=== PATIENT | female | born 1945 | race American Indian/Alaskan Native ===

== ENCOUNTER → 2024-12-17 | Outpatient (CLI) | payer MEDICARE, MEDICAID, SELFPAY ==
[2024-12-17 17:20] LABS: Amphetamine/Methamp Scrn,U Negative (Negative); Barbiturate Screen,Urine Negative (Negative); Benzodiazepines Screen,Urine Negative (Negative); Benzoylecgonine Screen, Ur Negative (Negative); Fentanyl Screen,Urine Negative (Negative); Opiate Screen,Urine Positive (Negative); THC Screen,Urine Negative (Negative)
== END | disposition home or self-care (01) ==
LOC: COPL 15:18 → SLDO 15:26
PROVIDERS: PCP Family Medicine; Referring Provider Family Medicine; Visit Provider Family Medicine
DX: Z71.51 Drug abuse counseling and surveillance of drug abuser (principal)
CPT/HCPCS: 80307

== ENCOUNTER 2025-02-23 14:03 | Inpatient (IN) | payer MEDICARE, MEDICAID, SELFPAY ==
[2025-02-23] VITALS (7 sets, daily range): BP systolic 107–143; BP diastolic 63–73; PULSE 90–108; RESP 14–24; TEMP 36.5–37.2; O2SAT 90–95; BMI 23.9; BMI 23.6
--- NOTE | 2025-02-23 14:27 | XR_ITS ---
Examination: AP chest single view Technique: AP portable semiupright chest single view Exam date and time: February 23, 2025 1523 hrs. Comparison May 03, 2023 Indications: Shortness of breath chest pain today. Findings: Severe pneumonia consolidation right upper lobe Pneumonia also both bases and right middle lobe Normal heart size Impression: Bilateral pneumonia as above, follow-up strongly recommended to document complete clearing
--- NOTE | 2025-02-23 14:27 | EKG_ITS ---
[facility] Test Date: 2025-02-23 Pat Name: RODRIGO ACKERMAN Department: Room: - Gender: Female Certified Orthotist Practice Manager: : [id number] Requested By: Luis Manuel Mancilla Order Number: [id number] Reading MD: Luis Manuel Mancilla Measurements Intervals [place] Rate: 94 P: 68 OK: 142 QRS: 63 QRSD: 76 T: 57 QT: 338 QTc: 423 Interpretive Statements SINUS RHYTHM WITH OCCASIONAL SUPRAVENTRICULAR PREMATURE COMPLEXES Compared to ECG 02/21/2022 17:07:17 No significant changes /store/S0/[id number].pdf
--- NOTE | 2025-02-23 14:30 | EDNOTE_ITS ---
ED General RME/HPI General Chief complaint: Flu Like Symptoms Stated complaint: COUGH Time Seen by Provider: 02/23/25 14:26 Arrival date/time: 02/23/25 14:03 CC: Cough with shortness of breath HPI ongoing for the past 3 weeks but worse in the last 2 weeks where the patient states he has been coughing day at night. All of the family members in the household were sick , with similar symptoms. Patient denies chest pain. No OTC medicines taken. Dr Nick is her PCP. Related Data Home Medications ?Medication ?Instructions ?Recorded ?Confirmed lorazepam 0.5 mg tablet 0.5 mg PO TID PRN anxiety #0 tabs 06/21/16 02/23/25 omeprazole 20 mg capsule,delayed 20 mg PO QDAY ##0 02/23/25 release amlodipine 10 mg tablet (Norvasc) 10 mg PO QDAY #0 tab s 09/14/16 02/23/25 benazepril 40 mg tablet (Lotensin) 40 mg PO QDAY #0 ta bs 09/14/16 05/03/23 tizanidine 4 mg tablet (Zanaflex) 4 mg PO BID Muscle s pasms #0 tabs 09/14/16 02/23/25 hydrocodone 7.5 mg-acetaminophen 1 tab PO [id number] PRN Pain 01/10/19 05/03/23 325 mg tablet (Beauty) alendronate 70 mg tablet 70 mg PO QWEEK 04/30/2004/07 duloxetine 20 mg capsule,delayed 20 mg PO DAILY 02/23/25 release Previous Rx's ?Medication ?Instructions ?Recorded guaifenesin 200 mg tablet 200 mg PO QID PRN congestion #20 02/21/22 tabs promethazine 6.25 mg-codeine 10 5 ml PO QHSPRN PRN cou gh #118 mL 02/21/22 mg/5 mL syrup hydrocodone 5 mg-acetaminophen 325 1 tab PO Q8H PRN pa in #20 tabs 09/03/23 mg tablet dexamethasone 6 mg tablet 6 mg PO QDAY #7 tabs 3 ondansetron 4 mg disintegrating 4 mg PO Q8H PRN nausea and 11/11/23 tablet vomiting #14 tabs Allergies Allergy/AdvReac Type Severity Reaction Status Date / Time diphenhydramine HCl AdvReac Mild RESTLESSNES Verified 08/25/23 11:25 S Review of Systems Review of Systems Narrative Review of Systems: GEN: No fever, no chills, no weight loss EYES: No discharge, no visual changes, no pain HEENT: No ear pain, no congestion, no sore throat PULM: No shortness of breath, + cough, no congestion CV: No chest pain, no dyspnea on exertion, no palpitations GI: No nausea, no vomiting, no diarrhea, no pain, no constipation : No frequency, no urgency, no dysuria MUSC/SKEL: No joint pain, no back pain SKIN: No rash PSYCH: No hallucinations, no depression HEME/LYMPH: No easy bleeding or bruising tendencies NEURO: No weakness, no headache Past Medical History Past Medical History NEUROLOGIC: Negative Neurological Disorders, Seizures or Head Trauma CARDIAC: Positive Edema and Hypertension; Negative Cardiac Disorders, Congestive Heart Failure, Cellulitis or Varicose Veins RESPIRATORY: Positive Asthma; Negative Chronic Obstructive Pulmonary Disease (COPD), Tuberculosis or Sleep Apnea GASTROINTESTINAL: Positive Gastrointestinal Disorders and Gastroesophageal Reflux Disease; Negative Hepatitis GENITOURINARY: Negative Genitourinary Disorders or Renal Disease REPRODUCTIVE: Positive Previous Pregnancies MUSCULOSKELETAL: Positive Musculoskeletal Disorders, Arthritis, Osteoporosis, Fractures and Degenerative Joint Disease ENT: Positive Glaucoma; Negative Head Trauma ENDOCRINE: Negative Endocrine Disorders, Diabetes Mellitus Type 1 or Diabetes Mellitus Type 2 HEMATOLOGIC: Negative Blood Disorders or Sickle Cell Disease PSYCHO/SOCIAL: Positive Depression and Anxiety OTHER HISTORY: Positive Falls, Chicken Pox, Measles, Mumps, Cancer and Cervical Cancer; Negative Hospitalization, Autoimmune Disease, Shingles, Blood Transfusions, Blood Transfusion Reaction, Anesthesia Reactions, Chemotherapy, Radiation Therapy or MRSA Family History FAMILY HISTORY: Positive Family Gastrointestinal Problems and Family Surgery; Negative Family Psychiatric Problems, Family Respiratory Disorders, Family C ardiac Disorders, Family Cancer or Family Anesthesia Reaction Surgical History SURGICAL: Positive Eye Surgery, Joint Replacement, Open Reduction Internal Fixation and Hysterectomy; Negative Pacemaker Social History SMOKING STATUS: Never smoker ED Exam Narrative Physical exam: [General: Not in any acute distress Head normocephalic HEENT: Within acceptable limits Neck is supple nontender Chest equal chest rise nontender to palpation Respiratory: Expiratory crackles, no audible expiratory wheezing. No tachypnea nasal flaring or pursed lip breathing. CV: Rate rhythm is regular no murmurs rubs or clicks Abdomen is soft nontender no masses positive bowel sounds all 4 quadrants Back: No CVA tenderness no spinous process tenderness from cervical spine thoracic and lumbar spine Skin: Intact no petechiae rash induration ulceration or crepitus Extremities: Moving all extremity against resistance cap refill less than 2 seconds neurosensory intact Neuro: Awake alert oriented x3 Glascow coma 15 no focal deficits] Course Quality Measures none Orders Category Date Time Status Bedside Influenza A&B Antigen Test NOW Care 02/23/25 14:30 Completed EKG (ED ONLY) *Do not use* NOW Care 02/23/25 14:27 Completed EKG (ED Only) Stat Exams 02/23/25 14:27 Draft XR chest 1V Stat Exams 02/23/25 14:27 Completed B-Type Natriuretic Peptide Stat Lab 02/23/25 16:00 Completed CBC Stat Lab 02/23/25 16:00 Completed Cocci Serology IgM with reflex to IgG [Cocci Serology, Lab 02/23/25 16:00 Received Unk History] Stat Comprehensive Metabolic Panel Stat Lab 02/23/25 16:00 Completed Drug Screen,Urine Stat Lab 02/23/25 14:27 Ordered LDH (Lactate Dehydrogenase) Stat Lab 02/23/25 16:00 Completed Magnesium Stat Lab 02/23/25 16:00 Completed Partial Thromboplastin Time Stat Lab 02/23/25 16:00 Completed Prothrombin Time with INR Stat Lab 02/23/25 16:00 Completed Troponin I Stat Lab 02/23/25 16:00 Completed Urinalysis Stat Lab 02/23/25 14:27 Ordered Albuterol/Ipratr Rt Helen [Duoneb Rt Helen] Med 02/23/25 14:30 Discontinued 3 ml INH X1 ONE Potassium Chloride [K-Dur] Med 02/23/25 16:47 Discontinued 40 meq PO X1 ONE cefTRIAXone/D5w 1gm IV premix [Rocephin/D5w 1gm IV Med 02/23/25 15:43 Discontinued premix] 1 gm in 50 ml IV X1 Vital Signs Vital signs: Vital Signs Temperature 97.7 F 02/23/25 14:28 Pulse Rate 90 02/23/25 14:28 Respiratory Rate 18 02/23/25 14:28 Blood Pressure 107/64 02/23/25 14:28 Pulse Oximetry (%) 95 02/23/25 14:28 Oxygen Delivery Method Nasal Cannula 02/23/25 14:28 Oxygen Flow Rate 6 02/23/25 14:28 Discharge Plan Plan Patient Disposition: Admit Acute Care w/in Hospital Problem List Clinical Impression: Pneumonia, Leukocytosis, Cough 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 Medication Administration(s) Medication Administration History Acetaminophen (Acetaminophen 325 Mg Tablet) 650 mg PO Q6H PRN PRN Reason: Fever >101.5 Stop: 03/25/25 17:23 Hydrocodone Bitart/Acetaminophen (Hydrocodone/Apap 5/325 Tablet) 1 tab PO Q8HR PRN PRN Reason: Pain 7-10 Stop: 02/28/25 19:29 Albuterol/Ipratropium (Albuterol/Ipratropium (Duoneb) Rt Helen 3 Ml Nebu) 3 ml INH Q6HRRT [facility] Stop: 03/25/25 18:59 Last Admin: 02/23/25 18:42 Dose: 3 ml Documented By: KATLYN Azithromycin (Azithromycin 250 Mg Tablet) 500 mg PO QDAY [facility] Stop: 03/02/25 17:44 Last Admin: 02/23/25 22:01 Dose: 500 mg Documented By: Docusate Sodium (Docusate Sod 100 Mg Capsule) 100 mg PO QDAY PRN; Protocol PRN Reason: CONSTIPATION Stop: 03/25/25 17:23 Enoxaparin Sodium (Enoxaparin Sod Inj 30 Mg/0.3 Ml Syringe) 30 mg SC QDAY [facility] Stop: 03/10/25 08:59 Lactated Ringer's (Lactated Ringers) 1,000 mls @ 75 mls/hr IV .[id number] [facility] Stop: 02/24/25 06:49 Last Admin: 02/23/25 20:33 Dose: 75 mls/hr Documented By: Ceftriaxone Sodium/Dextrose (Rocephin/D5w 1gm Iv Premix) 1 gm in 50 mls @ 100 mls/hr IV QDAY [facility] Stop: 03/03/25 06:59 Ondansetron HCl (Ondansetron Inj 2 Mg/Ml Inj 2 Ml) 4 mg IV Q6H PRN; Protocol PRN Reason: NAUSEA OR VOMITING Stop: 03/25/25 17:23 Pantoprazole Sodium (Pantoprazole 40 Mg Tablet) 40 mg PO QDAY [facility] Stop: 03/26/25 08:59 Promethazine HCl/Dextromethorphan (Promethazine/Dm Syrup 5 Ml Dose) 10 ml PO Q6HR [facility]; Protocol Stop: 03/25/25 17:59 Last Admin: 02/23/25 19:15 Dose: 10 ml Documented By: EF Tizanidine HCl (Tizanidine Hcl 2 Mg Tablet) 4 mg PO HS [facility] Stop: 03/25/25 20:59 Last Admin: 02/23/25 22:03 Dose: 4 mg Documented By: ME Discontinued Medications Albuterol/Ipratropium (Albuterol/Ipratropium (Duoneb) Rt Helen 3 Ml Nebu) 3 ml INH X1 ONE Stop: 02/23/25 14:31 Last Admin: 02/23/25 14:49 Dose: 3 ml Documented By: JONH Benzonatate (Benzonatate 100 Mg Capsule) 200 mg PO X1 ONE; Protocol Stop: 02/23/25 18:04 Last Admin: 02/23/25 22:00 Dose: 200 mg Documented By: ME Ceftriaxone Sodium/Dextrose (Rocephin/D5w 1gm Iv Premix) 1 gm in 50 mls @ 100 mls/hr IV X1 ONE Stop: 02/23/25 16:12 Last Admin: 02/23/25 19:16 Dose: 100 mls/hr Documented By: EF Magnesium Sulfate (Magnesium Sulfate Ivpb) 4 gm in 50 mls @ 12.5 mls/hr IV X1 ONE Stop: 02/23/25 21:36 Last Admin: 02/23/25 20:45 Dose: 12.5 mls/hr Documented By: ME Potassium Chloride (Potassium Chloride 20 Meq Tabcr) 40 meq PO X1 ONE Stop: 02/23/25 16:48 Last Admin: 02/23/25 19:15 Dose: 40 meq Documented By: EF Sodium Chloride (Sodium Chloride Rt 10% 15 Ml Nebu) 5 ml INH X1 ONE Stop: 02/23/25 19:21
[2025-02-23] MEDS: ALBUTEROL/IPRATROPIUM (Duoneb) RT SOL 3 ML NEBU INH ×2 (14:49→18:42)
[2025-02-23 16:21] LABS: Basophils % (Auto) 0 % (0-2.5); Eosinophils # (Auto) 0.1 Thou/mm3 (0.0-0.5); Eosinophils % (Auto) 0 % (0-10); Hematocrit 34.5 % (36.0-46.0); Hemoglobin 11.8 g/dL (12.0-16.0); Immature Granulocytes % (Auto) 1 % (0-0); Lymphocytes # (Auto) 0.6 Thou/mm3 (1.0-4.8); Lymphocytes % (Auto) 3 % (10-50); Mean Corpuscular HGB Conc 34.2 g/dl (31.0-37.0); Mean Corpuscular Hemoglobin 29.3 pg (25.0-35.0); Mean Corpuscular Volume 86 fL (80-100); Monocytes # (Auto) 0.3 Thou/mm3 (0.0-0.8); Monocytes % (Auto) 2 % (0-12); Neutrophils # (Auto) 17.9 Thou/mm3 (1.8-7.7); Neutrophils % (Auto) 94 % (37-80); Nucleated Red Blood Cell # 0.14 Thou/mm3 (0.00-0.00); Nucleated Red Blood Cell % 1 /100 WBC (0); Platelet Count 290 Thou/mm3 (140-440); RDW Standard Deviation 51.4 fL (36.4-46.3); Red Blood Count 4.03 Miln/mm3 (4.00-5.20)
[2025-02-23 16:37] LABS: INR 1.2 (0.9-1.3); Partial Thromboplastin Time 44.7 Seconds (22.0-36.0)
[2025-02-23 16:41] LABS: B-Type Natriuretic Peptide 298 pg/mL (0-100)
[2025-02-23 16:45] LABS: Alanine Aminotransferase 15 U/L (10-49); Albumin, Serum 3.7 gm/dL (3.4-4.8); Albumin/Globulin Ratio 1.4 (1.2-2.2); Alkaline Phosphatase 142 U/L (46-116); Anion Gap 12 (7-16); Aspartate Amino Transferase 24 U/L (0-34); BUN/Creatinine Ratio 24 Ratio (12-20); Blood Urea Nitrogen 39 mg/dL (9-23); Calcium (Corrected) 8.2 mg/dL (8.5-10.1); Carbon Dioxide 21.2 mMol/L (20.0-31.0); Chloride 100 mMol/L (98-107); Creatinine (Component) 1.6 mg/dL (0.6-1.3); Estimated Creatinine Clearance 23.3 mL/min (>60); Globulin 2.7 gm/dL (2.3-3.5); Glucose 92 mg/dL (74-106); LDH (Lactate Dehydrogenase) 229 U/L (120-246); Magnesium 1.4 mg/dL (1.6-2.6); Osmolality,Calculated 275 (275-295); Potassium 3.1 mMol/L (3.4-5.1); Sodium 133 mMol/L (136-145); Total Protein 6.4 gm/dL (5.7-8.2); Troponin I < 0.020 ng/mL (0.0-0.045); eGFR 33 See Note
--- NOTE | 2025-02-23 17:40 | ESHP_ITS ---
<Statement entered by Bigg Reyes MD - 02/24/25 14:27> Patient coming in to the ED with shortness of breath. Patient found to have pneumonia started on broad-spectrum IV antibiotics and pending cultures to narrow antibiotics. Patient also noted to have electrolyte abnormalities, will replete and continue to monitor. Case discussed with team. Bigg Reyes MD PGY3 Documentation for date of: 02/23/25 HPI History of Present Illness Chief complaint: cough History of present illness: 79-year-old female with significant past medical history of hypertension, chronic back pain on opioids presented to the hospital with chief complaints of cough since 2 weeks. Patient was apparently normal 2 weeks ago, since then patient developed cough which is gradually progressive and worsening, associated with expectoration, yellowish in color and denies any hemoptysis. Also reported that she is having chest pain mainly noticed when she is coughing and also noticed that she is getting short of breath after coughing continuously. Denies fever, palpitations, lower extremity edema, abdominal distention, nausea, vomitings. Denies any recent sick contacts and denies going to primary care provider. Stated that she took [id number] cough medications without much relief. As the cough is gradually worsening, patient got anxious and came to the ED for further evaluation. ED course: - Vitals at the time of admission are stable except for saturations 95% with 6 L oxygen through nasal cannula - Labs are significant for WBC 19, hemoglobin 11.8, sodium 133, potassium 3.1, BUN 39, creatinine 1.6, magnesium 1.4, calcium 8.2, BNP 298 - Chest x-ray showed consolidation in right upper lobe - EKG showed sinus rhythm with occasional ectopics - Patient is admitted for acute hypoxic respiratory failure secondary to right lung pneumonia Past medical history: Hypertension, chronic back pain Past surgical history: Bilateral hip replacement Social history: Denies smoking, alcohol, other illicit drug abuse. Retired, lives at home with grandson and granddaughter in law Allergies: NKDA Review of Systems Review of Systems Systems Reviewed: All systems reviewed, normal except as documented Exam Vital Signs Temp Pulse Resp BP Pulse Ox O2 Del Method O2 Flow Rate 98.9 F 96 18 143/70 H 93 L Nasal Cannula 2 02/23/25 17:32 02/23/25 17:32 02/23/25 17:32 02/23/25 17:32 02/23/25 17:32 02/23/25 17:32 02/23/25 17:32 Narrative Exam General: Awake. On 4 L oxygen through nasal cannula HEENT: Normocephalic, atraumatic, mucous membranes moist. Heart: Tachycardic and regular rhythm, no murmurs. Lungs: Bilateral bronchial breath sounds noted Abdomen: Soft, nondistended, nontender, positive bowel sounds. ?No guarding or rebound tenderness. Neurologic: Alert and oriented x3, no gross neurological deficit, and patient able to move all 4 extremities. Extremities: No edema. Skin: No rash or ecchymoses. Results: Labs 02/24/25 05:06 02/24/25 05:06 Labs: Short CBC 02/23/25 Range/Units 16:00 WBC 19.0 H (3.6-11.0) Thou/mm3 Hgb 11.8 L (12.0-16.0) g/dL Hct 34.5 L (36.0-46.0) % Plt Count 290 (140-440) Thou/mm3 BMP 02/23/25 16:00 Sodium 133 L Potassium 3.1 L Chloride 100 Carbon Dioxide 21.2 BUN 39 H Creatinine 1.6 H Glucose 92 Calcium 8.0 L Cardiac Enzymes 02/23/25 Range/Units 16:00 Troponin I < 0.020 (0.0-0.045) ng/mL Liver Function 02/23/25 Range/Units 16:00 Total Bilirubin 1.0 (0.3-1.2) mg/dL AST 24 (0-34) U/L ALT 15 (10-49) U/L Alkaline Phosphatase 142 H (46-116) U/L Albumin 3.7 (3.4-4.8) gm/dL Quality Measures Quality Measures VTE prophylaxis Advance care planning discussed with:: patient Medications Home Medications and Allergies Home Medications ?Medication ?Instructions ?Recorded ?Confirmed ?Type lorazepam 0.5 mg tablet 0.5 mg PO TID PRN anxiety #0 tabs 06/21/16 02/23/25 History omeprazole 20 mg capsule,delayed 20 mg PO QDAY ##0 02/23/25 History release amlodipine 10 mg tablet (Norvasc) 10 mg PO QDAY #0 tab s 09/14/16 02/23/25 History benazepril 40 mg tablet (Lotensin) 40 mg PO QDAY #0 ta bs 09/14/16 05/03/23 History tizanidine 4 mg tablet (Zanaflex) 4 mg PO BID Muscle s pasms #0 tabs 09/14/16 02/23/25 History hydrocodone 7.5 mg-acetaminophen 1 tab PO [id number] PRN Pain 01/10/19 05/03/23 History 325 mg tablet (Maddock) alendronate 70 mg tablet 70 mg PO QWEEK 04/30/2004/07 History duloxetine 20 mg capsule,delayed 20 mg PO DAILY 02/23/25 History release Allergies Allergy/AdvReac Type Severity Reaction Status Date / Time diphenhydramine HCl AdvReac Mild RESTLESSNES Verified 08/25/23 11:25 S Visit Medications Acetaminophen (Acetaminophen 325 Mg Tablet) 650 mg PO Q6H PRN PRN Reason: Fever >101.5 Stop: 03/25/25 17:23 Albuterol/Ipratropium (Albuterol/Ipratropium (Duoneb) Rt Helen 3 Ml Nebu) 3 ml INH Q6HRRT [facility] Stop: 03/25/25 18:59 Azithromycin (Azithromycin 250 Mg Tablet) 500 mg PO QDAY [facility] Stop: 03/02/25 17:44 Docusate Sodium (Docusate Sod 100 Mg Capsule) 100 mg PO QDAY PRN; Protocol PRN Reason: CONSTIPATION Stop: 03/25/25 17:23 Enoxaparin Sodium (Enoxaparin Sod Inj 40 Mg/0.4 Ml Syringe) 30 mg SC QDAY [facility] Stop: 03/10/25 08:59 Lactated Ringer's (Lactated Ringers) 1,000 mls @ 75 mls/hr IV .[id number] [facility] Stop: 02/24/25 06:49 Ceftriaxone Sodium/Dextrose (Rocephin/D5w 1gm Iv Premix) 1 gm in 50 mls @ 100 mls/hr IV QDAY [facility] Stop: 03/03/25 06:59 Magnesium Sulfate (Magnesium Sulfate Ivpb) 4 gm in 50 mls @ 12.5 mls/hr IV X1 ONE Stop: 02/23/25 21:36 Ondansetron HCl (Ondansetron Inj 2 Mg/Ml Inj 2 Ml) 4 mg IV Q6H PRN; Protocol PRN Reason: NAUSEA OR VOMITING Stop: 03/25/25 17:23 Pantoprazole Sodium (Pantoprazole 40 Mg Tablet) 40 mg PO QDAY [facility] Stop: 03/26/25 08:59 Promethazine HCl/Dextromethorphan (Promethazine/Dm Syrup 5 Ml Dose) 10 ml PO Q6HR [facility]; Protocol Stop: 03/25/25 17:59 Discontinued Medications Albuterol/Ipratropium (Albuterol/Ipratropium (Duoneb) Rt Helen 3 Ml Nebu) 3 ml INH X1 ONE Stop: 02/23/25 14:31 Last Admin: 02/23/25 14:49 Dose: 3 ml Ceftriaxone Sodium/Dextrose (Rocephin/D5w 1gm Iv Premix) 1 gm in 50 mls @ 100 mls/hr IV X1 ONE Stop: 02/23/25 16:12 Potassium Chloride (Potassium Chloride 20 Meq Tabcr) 40 meq PO X1 ONE Stop: 02/23/25 16:48 Assessment & Plan Plan A 79-year-old female with significant past medical history of hypertension, chronic back pain on opioids presented to the hospital with chief complaints of cough and admitted in the hospital for acute hypoxic respiratory failure secondary to right lung pneumonia # Acute hypoxic respiratory failure # 2/2 Right lung pneumonia # Likely community-acquired pneumonia, to rule out cocci # Leukocytosis - Patient presented to the hospital with chief complaints of cough with expectoration associated with shortness of breath since 2 weeks - Denies fever, nausea, vomitings - Vitals at the time of admission are significant for SpO2 95% with 6 L oxygen - Labs are significant for WBC 19, Hb 11.8 - Chest x-ray showed patchy infiltrate in right upper lobe - Tested negative for COVID, influenza A and B - Blood and urine cultures are ordered - Sputum culture and Gram stain was ordered - Cocci IgM and IgG were ordered Plan - Started on ceftriaxone and azithromycin [02/23/2025- - Oxygen as needed - Chest physiotherapy and incentive spirometry - Promethazine and dextromethorphan every 6 hourly - DuoNebs every 6 hourly # VERONICA versus CKD IIIb - Baseline creatinine is 0.7 in 02/2024 - At the time of admission, BUN is 39, creatinine is 1.6 Plan - Started on IV fluids, LR at 75 mL/h - Urine electrolytes and creatinine is ordered - Avoid nephrotoxic medications and renally dose medications - Will continue to monitor renal functions # Hypokalemia # Hyponatremia # Hypomagnesemia - Low sodium could be due to the ongoing lung pathology - Hypokalemia and hypomagnesemia could be due to poor oral intake in the setting of acute illness - At the time of admission, potassium is 3.1, magnesium is 1.4 Plan - 40 mill equivalents of oral potassium and 4 g of IV magnesium is given -Started on LR at 75 mL/h - Will continue to monitor electrolytes and replete as needed # Chronic anemia - Hemoglobin is 11.1 on 02/2024 - Hemoglobin at the time of admission is 11.8 - Likely nutritional - Recommended to follow-up in outpatient basis for further evaluation # Hypocalcemia - Corrected calcium at the time of admission is 8.2 - Vitamin D levels were ordered - Will follow-up with the results # History of hypertension - Patient is using amlodipine 10 Mg p.o. daily and benazepril 40 Mg p.o. daily at home - Blood pressures are within normal limits since the hospital admission, will withhold antihypertensives for now - Will continue to monitor blood pressures and add medications as needed # History of osteoporosis # History of chronic back pain - Patient is using alendronate and Maddock as needed for the back pain - Resumed Maddock 5 every 8 hourly as needed - Will resume tizanidine - Home med rec is ordered Hospital Maintenance: Dispo: Med/tele DVT ppx: Lovenox GI ppx: Protonix Diet: Regular IV lines: Peripheral Code status: Full code Patient plan of care was discussed with the attending physician, Dr. Prince and senior resident Dr. Eric Washington, PGY1 Attending Provider Attestation/Addendum I, Moriah Prince, DO, attest that I was physically present for the horne portions of the service and evaluated the patient with the resident and I reviewed and discussed the case with the resident and agree with the resident's findings and plans of care as documented above Patient is a 79-year-old female past medical history of chronic back pain, opioid dependence, hypertension and GERD who presented to the ED with worsening generalized weakness and shortness of breath that began about 2 to 3 weeks ago. Patient states that she was with her grandchildren who were recently sick, but have all recovered. She states that she woke up this morning with worsening productive cough and dyspnea on exertion, prompting her to come to the ED. Patient was found to have leukocytosis to 19, acute kidney injury with a creatinine of 1.6 with baseline of 0.6, BNP of 298 and procalcitonin of 14.77. UA is negative for acute UTI. She appears tachypneic on exam with scattered wheezing in bilateral lung concepcion. Chest x-ray was done in the ED showing evidence of bilateral pneumonia with right upper lobe consolidation. She denies any recent antibiotic use. Will start patient on azithromycin and Rocephin for coverage of community-acquired pneumonia. Will start patient on gentle IV fluids due to acute kidney injury. She is currently on 4 L nasal cannula, titrate O2 as tolerated. Will start on breathing treatments as well. Patient denies any tobacco use or smoking history. Will obtain cultures to rule out any other sources of infection. Will admit patient to med/telemetry for further workup and medical management of acute hypoxic respiratory failure secondary to community-acquired pneumonia.
[2025-02-23] MEDS: POTASSIUM CHLORIDE 20 mEq TABCR 40 MEQ PO (19:15)
[2025-02-23] MEDS: PROMETHAZINE/DM SYRUP 5 ML DOSE 10 ML PO ×2 (19:15→23:17)
[2025-02-23] MEDS: cefTRIAXone/D5w 1gm IV premix 1 GM/50 ML BAG IV (19:16)
[2025-02-23] MEDS: RINGERS LACTATED 1000 ML 1,000 ML 75 ML IV (20:33)
[2025-02-23] MEDS: Magnesium Sulfate 4 GM Ivpb 4 GM/50 ML BAG IV (20:45)
[2025-02-23 20:51] LABS: Lactate (Lactic Acid) 4.5 mMol/L (0.4-2.0)
[2025-02-23 21:19] LABS: Vitamin D 25 Hydroxy Total 4.4 ng/mL (7.3-40.2)
[2025-02-23 21:24] LABS: Procalcitonin 14.77 ng/ml (0.0-0.49)
[2025-02-23] MEDS: BENZONATATE 100 MG CAPSULE 200 MG PO (22:00)
[2025-02-23] MEDS: AZITHROMYCIN 250 MG TABLET 500 MG PO (22:01)
[2025-02-23] MEDS: tiZANidine HCL 2 MG TABLET 4 MG PO (22:03)
[2025-02-23 23:42] LABS: Reflex Lactate? Y
[2025-02-24] VITALS (21 sets, daily range): BP systolic 64–113; BP diastolic 37–67; PULSE 76–97; RESP 10–25; TEMP 36.1–37.1; O2SAT 89–98
--- NOTE | 2025-02-24 00:10 | PC.NURSE ---
DIRECTOR OF ARCHITECTURE called due to hypotension, Sepsis alert also initiated (SEE LAB). labs draw, 1L bolus and midodrine given(SEE MAR).
[2025-02-24 00:32] LABS: Base Excess -4 (-3-3); HCO3 20 mEq/L (20-26); Inspired O2, VO2 Liters 9 L/min; Inspired Oxygen, FIO2 21 %; O2 Saturation 97 % (91-98); PCO2 35 mmHg (32.0-48.0); PO2 87 mmHg (83-108); pH, Arterial 7.38 (7.35-7.45)
[2025-02-24 00:33] LABS: Allen Test Performed/OK; Puncture Site Right Radial
[2025-02-24 00:34] LABS: Lactic Acid, 3 HR 3.5 mMol/L (0.4-2.0)
[2025-02-24 00:36] LABS: Basophils % (Auto) 0 % (0-2.5); Eosinophils % (Auto) 0 % (0-10); Hematocrit 29.7 % (36.0-46.0); Hemoglobin 10.4 g/dL (12.0-16.0); Immature Granulocytes % (Auto) 3 % (0-0); Immature Granulocytes Auto 0.56 Thou/mm3 (0.00-0.00); Lymphocytes # (Auto) 0.6 Thou/mm3 (1.0-4.8); Lymphocytes % (Auto) 3 % (10-50); Mean Corpuscular Hemoglobin 29.5 pg (25.0-35.0); Mean Corpuscular Volume 84 fL (80-100); Monocytes # (Auto) 0.2 Thou/mm3 (0.0-0.8); Monocytes % (Auto) 1 % (0-12); Neutrophils # (Auto) 17.2 Thou/mm3 (1.8-7.7); Neutrophils % (Auto) 92 % (37-80); Nucleated Red Blood Cell # 0.13 Thou/mm3 (0.00-0.00); Nucleated Red Blood Cell % 1 /100 WBC (0); Platelet Count 235 Thou/mm3 (140-440); RDW Standard Deviation 50.5 fL (36.4-46.3); Red Blood Count 3.52 Miln/mm3 (4.00-5.20); White Blood Count 18.7 Thou/mm3 (3.6-11.0)
[2025-02-24 01:03] LABS: Alanine Aminotransferase 15 U/L (10-49); Albumin, Serum 2.9 gm/dL (3.4-4.8); Albumin/Globulin Ratio 1.3 (1.2-2.2); Alkaline Phosphatase 128 U/L (46-116); Anion Gap 10 (7-16); Aspartate Amino Transferase 30 U/L (0-34); BUN/Creatinine Ratio 28 Ratio (12-20); Bilirubin,Total 0.7 mg/dL (0.3-1.2); Blood Urea Nitrogen 33 mg/dL (9-23); Calcium 7.4 mg/dL (8.3-10.6); Calcium (Corrected) 8.3 mg/dL (8.5-10.1); Carbon Dioxide 19.3 mMol/L (20.0-31.0); Chloride 102 mMol/L (98-107); Creatinine (Component) 1.2 mg/dL (0.6-1.3); Estimated Creatinine Clearance 31.1 mL/min (>60); Globulin 2.3 gm/dL (2.3-3.5); Glucose 101 mg/dL (74-106); Magnesium 2.8 mg/dL (1.6-2.6); Osmolality,Calculated 269 (275-295); Phosphorous 3.9 mg/dL (2.4-5.1); Potassium 3.8 mMol/L (3.4-5.1); Sodium 131 mMol/L (136-145); Total Protein 5.2 gm/dL (5.7-8.2); eGFR 47 See Note
[2025-02-24] MEDS: MIDODRINE 5 MG TABLET 10 MG PO ×3 (01:29→13:49)
[2025-02-24] MEDS: ALBUTEROL/IPRATROPIUM (Duoneb) RT SOL 3 ML NEBU INH ×6 (02:25→23:08)
--- NOTE | 2025-02-24 02:39 | EVENTNT_ITS ---
Documentation for date of: 02/23/25 Event Note Event Note: SUPERVISOR TRANSFERRING AND BOXING was was called around 11:53 PM on 02/23/2025, due to MAP of 49 and saturating 88% on 7 L oxygen. Night hospitalist team responded immediately, and initially placed the patient on reverse Trendelenburg position. She reported she did not have any dizziness, or trouble. Her MAP increased to 49, after placing her on reverse Trendelenburg position. Chest auscultation revealed clear breath sound throughout the lung field. She was given 1 L of IV bolus fluid with normal saline, and after sometimes also given midodrine 10 Mg p.o. x 1. Her blood pressure improved to MAP of 69, and oxygenation increased to 93%. CBC, CMP and electrolytes were ordered, lactic acid improved to 3.5, calcium 8.3. KCl 40 mEq p.o. was added, and I started the patient on calcium carbonate 600 Mg daily with 1 dose this morning. Albumin was 2.9. The patient's management plan was discussed with my attending physician MD Fredi Urias MD, PGY2
[2025-02-24 03:58] LABS: Collection Type, Urine Clean Catch
[2025-02-24 04:12] LABS: Bacteria,Urine Rare; Bilirubin,Urine Negative (Negative); Blood,Urine Trace (Negative); Clarity,Urine Turbid (Clear/Hazy); Color,Urine Yellow (Lt Yel-Yel); Glucose, Urine Negative (Negative); Hyaline Casts,Urine < 1 /hpf (0-1); Ketones,Urine Negative (Negative); Leukocyte Esterase,Urine Negative (Negative); Nitrite,Urine Negative (Negative); Protein,Urine 1+ (Neg - Trace); RBC,Urine 2 /hpf (0-3); Squamous Epithelial Cell,Urine 14 /hpf (0-5); Urobilinogen,Urine Negative mg/dL (0.0-1.0); WBC,Urine 7 /hpf (0-5)
[2025-02-24 04:20] LABS: Amphetamine/Methamp Scrn,U Negative (Negative); Barbiturate Screen,Urine Negative (Negative); Benzodiazepines Screen,Urine Negative (Negative); Benzoylecgonine Screen, Ur Negative (Negative); Fentanyl Screen,Urine Negative (Negative); Opiate Screen,Urine Positive (Negative); THC Screen,Urine Negative (Negative)
[2025-02-24 05:35] LABS: Chloride,Urine Random 21.5 mMol/L (55.0-125.0); Creatinine,Random Urine 106 mg/dL (30-125); Potassium,Urine Random 32 mMol/L (12-62); Sodium,Urine Random < 10.0 mMol/L (20.0-110.0)
--- NOTE | 2025-02-24 05:48 | PC.RT ---
Sputum culture collected and sent to lab.
[2025-02-24] MEDS: CALCIUM CARBONATE 600 MG TABLET PO (06:12)
[2025-02-24] MEDS: PROMETHAZINE/DM SYRUP 5 ML DOSE 10 ML PO ×4 (06:13→23:51)
[2025-02-24 06:21] LABS: Basophils % (Auto) 0 % (0-2.5); Eosinophils % (Auto) 0 % (0-10); Hematocrit 29.5 % (36.0-46.0); Hemoglobin 10.2 g/dL (12.0-16.0); Immature Granulocytes % (Auto) 4 % (0-0); Immature Granulocytes Auto 1.04 Thou/mm3 (0.00-0.00); Lymphocytes # (Auto) 0.6 Thou/mm3 (1.0-4.8); Lymphocytes % (Auto) 2 % (10-50); Mean Corpuscular HGB Conc 34.6 g/dl (31.0-37.0); Mean Corpuscular Hemoglobin 29.6 pg (25.0-35.0); Mean Corpuscular Volume 86 fL (80-100); Monocytes # (Auto) 0.3 Thou/mm3 (0.0-0.8); Monocytes % (Auto) 1 % (0-12); Neutrophils # (Auto) 22.1 Thou/mm3 (1.8-7.7); Neutrophils % (Auto) 92 % (37-80); Nucleated Red Blood Cell # 0.08 Thou/mm3 (0.00-0.00); Nucleated Red Blood Cell % 0 /100 WBC (0); Platelet Count 268 Thou/mm3 (140-440); RDW Standard Deviation 50.8 fL (36.4-46.3); Red Blood Count 3.45 Miln/mm3 (4.00-5.20)
[2025-02-24] MEDS: cefTRIAXone/D5w 1gm IV premix 1 GM/50 ML BAG IV (06:36)
[2025-02-24 06:57] LABS: Alanine Aminotransferase 15 U/L (10-49); Albumin/Globulin Ratio 1.3 (1.2-2.2); Alkaline Phosphatase 131 U/L (46-116); Anion Gap 8 (7-16); Aspartate Amino Transferase 24 U/L (0-34); BUN/Creatinine Ratio 31 Ratio (12-20); Bilirubin,Total 0.8 mg/dL (0.3-1.2); Blood Urea Nitrogen 34 mg/dL (9-23); Calcium 7.5 mg/dL (8.3-10.6); Calcium (Corrected) 8.3 mg/dL (8.5-10.1); Carbon Dioxide 19.3 mMol/L (20.0-31.0); Chloride 104 mMol/L (98-107); Cholesterol 87 mg/dL (132-200); Creatinine (Component) 1.1 mg/dL (0.6-1.3); Estimated Creatinine Clearance 33.9 mL/min (>60); Globulin 2.4 gm/dL (2.3-3.5); Glucose 93 mg/dL (74-106); HDL Cholesterol < 10 mg/dL (40-60); LDL Cholesterol,Calculated 59 mg/dL (0-130); Magnesium 2.6 mg/dL (1.6-2.6); Osmolality,Calculated 270 (275-295); Potassium 3.5 mMol/L (3.4-5.1); Sodium 131 mMol/L (136-145); Thyroid Stimulating Hormone 0.37 uIU/mL (0.55-4.78); Total Protein 5.4 gm/dL (5.7-8.2); Triglycerides 91 mg/dL (30-150); eGFR 52 See Note
[2025-02-24] MEDS: ENOXAPARIN SOD INJ 30 MG/0.3 ML SYRINGE SC (08:24)
[2025-02-24] MEDS: AZITHROMYCIN 250 MG TABLET 500 MG PO (08:24)
[2025-02-24] MEDS: PANTOPRAZOLE 40 MG TABLET PO (08:24)
[2025-02-24 09:58] LABS: Free T4 (Free Thyroxine) 1.06 ng/dL (0.89-1.76)
[2025-02-24] MEDS: POTASSIUM CHLORIDE 20 mEq TABCR 40 MEQ PO (10:18)
--- NOTE | 2025-02-24 10:43 | XR_ITS ---
Examination: CT chest, without intravenous contrast. Sagittal and coronal 2-D reconstructions. Exam date and time: February 24, 2025 1234 hours Comparison May 03, 2023 INDICATIONS: Onset shortness of breath today CTDI:vol (mGy) 8.32 DLP: (mGycm) 276 Technique: Multiple 3.0 mm axial sections of the chest to been obtained. Bone and lung density settings are obtained. Sagittal and coronal 2-D reconstructions have been obtained. Low dose protocols were performed. One or more of the following dose reduction techniques were used; automated exposure control, adjustment of the mA and/or KV according to patient size, use of iterative reconstruction technique. Findings: Thoracic aortic calcification no aneurysmal dilatation Pulmonary artery segments are not enlarged Severe diffuse pneumonia right lung Diffuse pneumonia left lung most prominent left lung base Fatty liver No pancreatic mass Significant osteopenia IMPRESSION: Bilateral pneumonia, severe and diffuse in the right lung
[2025-02-24] MEDS: RINGERS LACTATED 1000 ML 1,000 ML 75 ML IV (11:08)
[2025-02-24] MEDS: CEFEPIME INJ 2 GM in SODIUM CHLORIDE 0.9% (Popper) 50 ML IV ×2 (11:09→20:47)
[2025-02-24] MEDS: Vancomycin Inj 1,500 MG in SODIUM CHLORIDE 0.9% 500 ML 500 ML 300 MG IV (11:38)
[2025-02-24 14:29] LABS: Cocci Serology, IgM Negative (Negative)
--- NOTE | 2025-02-24 16:05 | PC.SS ---
Patient is alert/oriented. Patient was able to verify demographics. Patient resides with chi. Patient states she always has someone at her home 29/05. Patient was admitted for respiratory failure. Patient states she does not have 02 at home. Patient uses a walker at home. No wheelchair. She is connected to [facility]. Her grandson is the main careprovider and takes those hours. Pharmacy: [facility]. PCP: Dr. Nick. Last appt was in December. Patient plans on returning home. Chi, is the alt medical decision maker. d/c plan: home with family - alt medical decision maker: Paulino mireles,
--- NOTE | 2025-02-24 16:39 | ESPR_ITS ---
<Statement entered by Bigg Reyes MD - 02/24/25 17:13> Patient seen and assessed at bedside. Patient had rapid response overnight due to hypotension. Patient was given 1 L bolus and midodrine 10 x 1. Today patient states to be feeling slightly better. Will broaden IV antibiotics to vancomycin and cefepime. Patient on high flow nasal cannula. Pending cocci and blood cultures. Case discussed with team. Bigg Reyes MD PGY3 Documentation for date of: 02/24/25 Subjective Subjective Interval history: Patient is seen and examined at bedside. Overnight, patient had a rapid response in view of low blood pressures and hypoxia for which patient was started on midodrine and received fluids Patient was started on high flow overnight. Patient is still on high flow 25 L/min, 60% FiO2 Labs showed WBC 24, Hb 10.2, sodium 131, bicarb 19.3, BUN 34, creatinine 1.1, lactate 3.5, vitamin D 4.4, procalcitonin 14.[address] was done which showed bilateral infiltrates, severe pneumonia in the right lung Cocci came back negative. Ceftriaxone and azithromycin are stopped, started on cefepime and vancomycin for broad coverage Exam Vital Signs Temp Pulse Resp BP Pulse Ox O2 Del Method O2 Flow Rate 98.8 F 88 20 98/67 96 High Flow Nasal Cannula 25 02/24/25 11:55 02/24/25 16:00 02/24/25 15:15 02/24/25 13:49 02/24/25 15:15 02/24/25 11:55 02/24/25 15:15 FiO2 60 02/24/25 15:15 Narrative Exam General: Awake. On high flow oxygen HEENT: Normocephalic, atraumatic, mucous membranes moist. Heart: Regular rate and regular rhythm, no murmurs. Lungs: Bilateral bronchial breath sounds noted Abdomen: Soft, nondistended, nontender, positive bowel sounds. ?No guarding or rebound tenderness. Neurologic: Alert and oriented x3, no gross neurological deficit, and patient able to move all 4 extremities. Extremities: No edema. Skin: No rash or ecchymoses. Objective Labs 02/25/25 05:06 02/25/25 05:06 Labs: Laboratory Results - last 24 hr 02/23/25 02/23/25 02/24/25 16:00 20:27 00:15 WBC 18.7 H RBC 3.52 L Hgb 10.4 L Hct 29.7 L MCV 84 MCH 29.5 MCHC 35.0 RDW Std Deviation 50.5 H Plt Count 235 D Neut % (Auto) 92 H Lymph % (Auto) 3 L Holt % (Auto) 1 Eos % (Auto) 0 Baso % (Auto) 0 Neut # (Auto) 17.2 H Lymph # (Auto) 0.6 L Holt # (Auto) 0.2 Eos # (Auto) 0.0 Baso # (Auto) 0.0 Immature Gran # (Auto) 0.56 H Absolute Nucleated RBC 0.13 H Immature Gran % 3 H Nucleated RBC % 1 H Puncture Site ABG pH ABG pCO2 ABG pO2 ABG HCO3 ABG O2 Saturation ABG Base Excess Oxygen Liter Flow FiO2 Sodium 133 L 131 L Potassium 3.1 L 3.8 D Chloride 100 102 Carbon Dioxide 21.2 19.3 L Anion Gap 12 10 BUN 39 H 33 H Creatinine 1.6 H 1.2 Estim Creat Clear Calc 23.3 L 31.1 L eGFR 33 L 47 L BUN/Creatinine Ratio 24 H 28 H Glucose 92 101 Calculated Osmolality 275 269 L Lactic Acid 4.5 H* 3.5 H Calcium 8.0 L 7.4 L Corrected Calcium 8.2 L 8.3 L Phosphorus 3.9 Magnesium 1.4 L 2.8 H Total Bilirubin 1.0 0.7 AST 24 30 ALT 15 15 Alkaline Phosphatase 142 H 128 H Lactate Dehydrogenase 229 Troponin I < 0.020 B-Natriuretic Peptide 298 H Total Protein 6.4 5.2 L Albumin 3.7 2.9 L D Globulin 2.7 2.3 Albumin/Globulin Ratio 1.4 1.3 Triglycerides Cholesterol LDL Cholesterol, Calc HDL Cholesterol Cholesterol/HDL Ratio 25-OH Vitamin D Total 4.4 L Procalcitonin 14.77 H TSH Free T4 Ur Collection Type Urine Color Urine Clarity Urine pH Ur Specific [place] Urine Protein Urine Glucose (UA) Urine Ketones Urine Blood Urine Nitrite Urine Bilirubin Urine Urobilinogen (Auto) Ur Leukocyte Esterase Urine RBC Urine WBC Ur Squamous Epith Cells Urine Bacteria Hyaline Casts Ur Random Creatinine Ur Random Sodium Ur Random Potassium Ur Random Chloride Urine Opiates Screen Urine Fentanyl Screen Ur Barbiturates Screen U Amphetamin/Meth Scrn U Benzodiazepines Scrn U Cocaine Metab Screen U Marijuana (THC) Screen Coccidioides IgM Ab Negative 02/24/25 02/24/25 02/24/25 00:25 03:10 05:06 WBC 24.0 H D RBC 3.45 L Hgb 10.2 L Hct 29.5 L MCV 86 MCH 29.6 MCHC 34.6 RDW Std Deviation 50.8 H Plt Count 268 D Neut % (Auto) 92 H Lymph % (Auto) 2 L Holt % (Auto) 1 Eos % (Auto) 0 Baso % (Auto) 0 Neut # (Auto) 22.1 H Lymph # (Auto) 0.6 L Holt # (Auto) 0.3 Eos # (Auto) 0.0 Baso # (Auto) 0.0 Immature Gran # (Auto) 1.04 H Absolute Nucleated RBC 0.08 H Immature Gran % 4 H Nucleated RBC % 0 Puncture Site Right Radial ABG pH 7.38 ABG pCO2 35 ABG pO2 87 ABG HCO3 20 ABG O2 Saturation 97 ABG Base Excess -4 L Oxygen Liter Flow 9 FiO2 21 Sodium 131 L Potassium 3.5 Chloride 104 Carbon Dioxide 19.3 L Anion Gap 8 BUN 34 H Creatinine 1.1 Estim Creat Clear Calc 33.9 L eGFR 52 L BUN/Creatinine Ratio 31 H Glucose 93 Calculated Osmolality 270 L Lactic Acid Calcium 7.5 L Corrected Calcium 8.3 L Phosphorus Magnesium 2.6 Total Bilirubin 0.8 AST 24 ALT 15 Alkaline Phosphatase 131 H Lactate Dehydrogenase Troponin I B-Natriuretic Peptide Total Protein 5.4 L Albumin 3.0 L Globulin 2.4 Albumin/Globulin Ratio 1.3 Triglycerides 91 Cholesterol 87 L LDL Cholesterol, Calc 59 HDL Cholesterol < 10 L Cholesterol/HDL Ratio 8.0 H 25-OH Vitamin D Total Procalcitonin TSH 0.37 L Free T4 Ur Collection Type Clean Catch Urine Color Yellow Urine Clarity Turbid A Urine pH 6.0 Ur Specific [place] 1.020 Urine Protein 1+ A Urine Glucose (UA) Negative Urine Ketones Negative Urine Blood Trace Urine Nitrite Negative Urine Bilirubin Negative Urine Urobilinogen (Auto) Negative Ur Leukocyte Esterase Negative Urine RBC 2 Urine WBC 7 H Ur Squamous Epith Cells 14 H Urine Bacteria Rare Hyaline Casts < 1 Ur Random Creatinine 106 Ur Random Sodium < 10.0 L Ur Random Potassium 32 Ur Random Chloride 21.5 L Urine Opiates Screen Positive A Urine Fentanyl Screen Negative Ur Barbiturates Screen Negative U Amphetamin/Meth Scrn Negative U Benzodiazepines Scrn Negative U Cocaine Metab Screen Negative U Marijuana (THC) Screen Negative Coccidioides IgM Ab 02/24/25 05:26 WBC RBC Hgb Hct MCV MCH MCHC RDW Std Deviation Plt Count Neut % (Auto) Lymph % (Auto) Holt % (Auto) Eos % (Auto) Baso % (Auto) Neut # (Auto) Lymph # (Auto) Holt # (Auto) Eos # (Auto) Baso # (Auto) Immature Gran # (Auto) Absolute Nucleated RBC Immature Gran % Nucleated RBC % Puncture Site ABG pH ABG pCO2 ABG pO2 ABG HCO3 ABG O2 Saturation ABG Base Excess Oxygen Liter Flow FiO2 Sodium Potassium Chloride Carbon Dioxide Anion Gap BUN Creatinine Estim Creat Clear Calc eGFR BUN/Creatinine Ratio Glucose Calculated Osmolality Lactic Acid Calcium Corrected Calcium Phosphorus Magnesium Total Bilirubin AST ALT Alkaline Phosphatase Lactate Dehydrogenase Troponin I B-Natriuretic Peptide Total Protein Albumin Globulin Albumin/Globulin Ratio Triglycerides Cholesterol LDL Cholesterol, Calc HDL Cholesterol Cholesterol/HDL Ratio 25-OH Vitamin D Total Procalcitonin TSH Free T4 1.06 Ur Collection Type Urine Color Urine Clarity Urine pH Ur Specific [place] Urine Protein Urine Glucose (UA) Urine Ketones Urine Blood Urine Nitrite Urine Bilirubin Urine Urobilinogen (Auto) Ur Leukocyte Esterase Urine RBC Urine WBC Ur Squamous Epith Cells Urine Bacteria Hyaline Casts Ur Random Creatinine Ur Random Sodium Ur Random Potassium Ur Random Chloride Urine Opiates Screen Urine Fentanyl Screen Ur Barbiturates Screen U Amphetamin/Meth Scrn U Benzodiazepines Scrn U Cocaine Metab Screen U Marijuana (THC) Screen Coccidioides IgM Ab ABG Interpretation ABG results: 02/24/25 00:25 ABG pH 7.38 ABG pCO2 35 ABG pO2 87 ABG HCO3 20 ABG O2 Saturation 97 ABG Base Excess -4 L Quality Measures Quality Measures none Advance care planning discussed with:: patient Assessment & Plan Assessment Current Active Medications: Generic Name Dose Route Start Last Admin Trade Name Freq PRN Reason Stop Dose Admin Acetaminophen 650 mg 02/23/25 17:24 Acetaminophen 325 Mg Tablet PO 03/25/25 17:23 Q6H PRN Fever >101.5 Hydrocodone Bitart/Acetaminophen 1 tab 02/23/25 19:30 Hydrocodone/Apap 5/325 Tablet PO 02/28/25 19:29 Q8HR PRN Pain 7-10 Albuterol/Ipratropium 3 ml 02/24/25 03:00 02/24/25 15:15 Albuterol/Ipratropium (Duoneb) Rt Helen 3 Ml Nebu INH 03/26/25 02:59 3 ml Q4HRRT MARISOL Administration Albuterol/Ipratropium 3 ml 02/23/25 23:37 Albuterol/Ipratropium (Duoneb) Rt Helen 3 Ml Nebu INH 03/25/25 23:36 Q2HR PRN SHORTNESS OF BREATH OR WHEEZE Azithromycin 500 mg 02/23/25 17:45 02/24/25 08:24 Azithromycin 250 Mg Tablet PO 03/02/25 17:44 500 mg QDAY MARISOL Administration Calcium Carbonate 600 mg 02/24/25 05:10 02/24/25 06:43 Calcium Carbonate 600 Mg Tablet PO 03/26/25 05:09 Not Given QDAY MARISOL Docusate Sodium 100 mg 02/23/25 17:24 Docusate Sod 100 Mg Capsule PO 03/25/25 17:23 QDAY PRN CONSTIPATION Protocol Enoxaparin Sodium 30 mg 02/24/25 09:00 02/24/25 08:24 Enoxaparin Sod Inj 30 Mg/0.3 Ml Syringe SC 03/10/25 08:59 30 mg QDAY MARISOL Administration Lactated Ringer's 1,000 mls @ 75 mls/hr 02/23/25 17:30 02/24/25 01:30 Lactated Ringers IV 0 mls/hr .[id number] MARISOL Infusion Lactated Ringer's 1,000 mls @ 75 mls/hr 02/24/25 10:41 02/24/25 11:08 Lactated Ringers IV 02/25/25 00:00 75 mls/hr .[id number] ONE Administration Cefepime HCl 2 gm/ Sodium 50 mls @ 100 mls/hr 02/24/25 10:45 02/24/25 11:09 Chloride IV 03/03/25 10:44 100 mls/hr Q12HR MARISOL Administration Vancomycin/Sodium Chloride 750 mg in 150 mls @ 150 mls/hr 02/25/25 11:30 Vancomycin/Ns 750 Mg Ivpb IV 03/04/25 11:29 Q24H MARISOL Midodrine 10 mg 02/24/25 06:00 02/24/25 13:49 Midodrine 5 Mg Tablet PO 03/26/25 05:59 10 mg TID MARISOL Administration Ondansetron HCl 4 mg 02/23/25 17:24 Ondansetron Inj 2 Mg/Ml Inj 2 Ml IV 03/25/25 17:23 Q6H PRN NAUSEA OR VOMITING Protocol Pantoprazole Sodium 40 mg 02/24/25 09:00 02/24/25 08:24 Pantoprazole 40 Mg Tablet PO 03/26/25 08:59 40 mg QDAY MARISOL Administration Pharmacy Consult 1 each 02/24/25 10:45 Vancomycin Pharmacy To Dose 1 Each Each IV 03/26/25 10:44 QDAY PRN CONSULT Promethazine HCl/Dextromethorphan 10 ml 02/23/25 18:00 02/24/25 11:08 Promethazine/Dm Syrup 5 Ml Dose PO 03/25/25 17:59 10 ml Q6HR MARISOL Administration Protocol Tizanidine HCl 4 mg 02/23/25 21:00 02/23/25 22:03 Tizanidine Hcl 2 Mg Tablet PO 03/25/25 20:59 4 mg HS MARISOL Administration Plan A 79-year-old female with significant past medical history of hypertension, chronic back pain on opioids presented to the hospital with chief complaints of cough and admitted in the hospital for acute hypoxic respiratory failure secondary to right lung pneumonia # Acute hypoxic respiratory failure # 2/2 Right lung pneumonia # Likely community-acquired pneumonia, to rule out cocci # Leukocytosis - Patient presented to the hospital with chief complaints of cough with expectoration associated with shortness of breath since 2 weeks - Denies fever, nausea, vomitings - Vitals at the time of admission are significant for SpO2 95% with 6 L oxygen - Labs are significant for WBC 19, Hb 11.8 - Chest x-ray showed patchy infiltrate in right upper lobe - Tested negative for COVID, influenza A and B - Blood and urine cultures are ordered, pending - Sputum culture and Gram stain was ordered, pending - Cocci IgM and IgG were ordered -IgM came back negative Plan - Started on ceftriaxone and azithromycin [02/23/2025] - Ceftriaxone was stopped on 02/24/2025 and patient was started on cefepime and vancomycin [02/24-present], will continue azithromycin for now - Oxygen as needed - Chest physiotherapy and incentive spirometry - Promethazine and dextromethorphan every 6 hourly - DuoNebs every 6 hourly # VERONICA, resolving Likely prerenal in the setting of pneumonia - Baseline creatinine is 0.7 in 02/2024 - At the time of admission, BUN is 39, creatinine is 1.6 --- improved to 1.1 Plan - Avoid nephrotoxic medications and renally dose medications - Will continue to monitor renal functions # Hypokalemia, resolved # Hyponatremia # Hypomagnesemia, resolved - Low sodium could be due to the ongoing lung pathology - Hypokalemia and hypomagnesemia could be due to poor oral intake in the setting of acute illness - At the time of admission, potassium is 3.1, magnesium is 1.4 -->came back to normal limits Plan - 40 mEq of oral potassium is given in view of low normal potassium - Will continue to monitor electrolytes and replete accordingly # Chronic anemia - Hemoglobin is 11.1 on 02/2024 - Hemoglobin at the time of admission is 11.8 - Likely nutritional - Recommended to follow-up in outpatient basis for further evaluation # Hypocalcemia, likely secondary to vitamin D deficiency - Corrected calcium at the time of admission is 8.2 - Vitamin D levels are 4.4 - Started on calcium supplements # History of hypertension - Patient is using amlodipine 10 Mg p.o. daily and benazepril 40 Mg p.o. daily at home - Blood pressures are within normal limits since the hospital admission, will withhold antihypertensives for now - Will continue to monitor blood pressures and add medications as needed # History of osteoporosis # History of chronic back pain - Patient is using alendronate and Puposky as needed for the back pain - Resumed Puposky 5 every 8 hourly as needed - Resumed home tizanidine - Home med rec is ordered Hospital Maintenance: Dispo: Med/tele DVT ppx: Lovenox GI ppx: Protonix Diet: Regular IV lines: Peripheral Code status: Full code Patient plan of care was discussed with the attending physician, Dr. Prince and senior resident Dr. Eric Washington, PGY1 Attending Provider Attestation/Addendum Hudson, Moriah Prince DO, attest that I was physically present for the horne portions of the service and evaluated the patient with the resident and I reviewed and discussed the case with the resident and agree with the resident's findings and plans of care as documented above Patient seen and evaluated this Am and placed on HFNC. Patient reports feeling improved today. CT chest was done and appears to have honeycombing of lung parenchyma consistent with ILD. Patient may have component of superimposed bacterial pneumonia. Will broaden empiric antibiotics to cover MRSA and pseudomonas. 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 Will send for c-anca, p-anca, respiratory viral panel, mycoplasma, strep pneumo and legionella UAG. Pt will need outpatient pulmonology follow up. Continue with IV abx and titrate O2 at this time. Encourage IS.
[2025-02-24] MEDS: ACETYLCYSTEINE RT SOL 10% 4 ML NEBU 3 ML INH (17:05)
[2025-02-24] MEDS: tiZANidine HCL 2 MG TABLET 4 MG PO (20:47)
[2025-02-25] VITALS (18 sets, daily range): BP systolic 116–148; BP diastolic 59–80; PULSE 73–105; RESP 17–24; TEMP 36.2–36.6; O2SAT 92–99
[2025-02-25] MEDS: ALBUTEROL/IPRATROPIUM (Duoneb) RT SOL 3 ML NEBU INH ×6 (02:51→22:15)
[2025-02-25] MEDS: PROMETHAZINE/DM SYRUP 5 ML DOSE 10 ML PO ×3 (05:04→18:02)
[2025-02-25 06:56] LABS: Basophils % (Auto) 0 % (0-2.5); Eosinophils % (Auto) 0 % (0-10); Hematocrit 26.9 % (36.0-46.0); Hemoglobin 9.6 g/dL (12.0-16.0); Immature Granulocytes % (Auto) 2 % (0-0); Immature Granulocytes Auto 0.25 Thou/mm3 (0.00-0.00); Lymphocytes # (Auto) 0.8 Thou/mm3 (1.0-4.8); Lymphocytes % (Auto) 5 % (10-50); Mean Corpuscular HGB Conc 35.7 g/dl (31.0-37.0); Mean Corpuscular Volume 81 fL (80-100); Monocytes # (Auto) 0.5 Thou/mm3 (0.0-0.8); Monocytes % (Auto) 3 % (0-12); Neutrophils # (Auto) 15.2 Thou/mm3 (1.8-7.7); Neutrophils % (Auto) 91 % (37-80); Nucleated Red Blood Cell # 0.05 Thou/mm3 (0.00-0.00); Nucleated Red Blood Cell % 0 /100 WBC (0); Platelet Count 235 Thou/mm3 (140-440); RDW Standard Deviation 48.7 fL (36.4-46.3); Red Blood Count 3.31 Miln/mm3 (4.00-5.20); White Blood Count 16.8 Thou/mm3 (3.6-11.0)
[2025-02-25 07:23] LABS: Alanine Aminotransferase 11 U/L (10-49); Albumin/Globulin Ratio 1.2 (1.2-2.2); Alkaline Phosphatase 156 U/L (46-116); Anion Gap 8 (7-16); BUN/Creatinine Ratio 25 Ratio (12-20); Bilirubin,Total 0.9 mg/dL (0.3-1.2); Blood Urea Nitrogen 20 mg/dL (9-23); Calcium 7.8 mg/dL (8.3-10.6); Calcium (Corrected) 8.6 mg/dL (8.5-10.1); Carbon Dioxide 21.7 mMol/L (20.0-31.0); Chloride 105 mMol/L (98-107); Creatinine (Component) 0.8 mg/dL (0.6-1.3); Estimated Creatinine Clearance 46.6 mL/min (>60); Globulin 2.5 gm/dL (2.3-3.5); Glucose 118 mg/dL (74-106); Osmolality,Calculated 273 (275-295); Potassium 3.8 mMol/L (3.4-5.1); Sodium 135 mMol/L (136-145); Total Protein 5.5 gm/dL (5.7-8.2); eGFR > 60 See Note
[2025-02-25 07:24] LABS: Aspartate Amino Transferase 17 U/L (0-34)
[2025-02-25] MEDS: HYDROcodone/APAP 5/325 TABLET 1 TAB PO ×2 (07:28→17:01)
[2025-02-25] MEDS: AZITHROMYCIN 250 MG TABLET 500 MG PO (10:04)
[2025-02-25] MEDS: ENOXAPARIN SOD INJ 30 MG/0.3 ML SYRINGE SC (10:05)
[2025-02-25] MEDS: CALCIUM CARBONATE 600 MG TABLET PO (10:05)
[2025-02-25] MEDS: PANTOPRAZOLE 40 MG TABLET PO (10:05)
[2025-02-25] MEDS: CEFEPIME INJ 2 GM in SODIUM CHLORIDE 0.9% (Popper) 50 ML IV ×2 (10:07→20:26)
[2025-02-25] MEDS: VANCOMYCIN/NS 1 GM IVPB 200 ML IV (11:20)
[2025-02-25 14:15] LABS: Cocci Serology, IgG Negative (Negative)
--- NOTE | 2025-02-25 17:31 | ECHO_ITS ---
Transthoracic Echo Report Ht (in): 62 Wt (lb): 129 Exam Location: Echo Lab Status: Inpatient Restuarant Crew Worker: Carlie Jiang Indications: Procedure Performed: BP: 129 / 80 HR: 86 Technical Quality: Technically difficult study MEASUREMENTS (Male / Female) Normal Values 2D ECHO LV Diastolic Diameter PLAX 4.0 cm 4.2 - 5.9 / 3.9 - 5.3 cm LV Systolic Diameter PLAX 2.9 cm IVS Diastolic Thickness 0.9 cm 0.6 - 1.0 / 0.6 - 0.9 cm LVPW Diastolic Thickness 1.1 cm 0.6 - 1.0 / 0.6 - 0.9 cm LV Relative Wall Thickness 0.5 LVOT Diameter 1.5 cm LA Systolic Diameter LX 3.2 cm 3.0 - 4.0 / 2.7 - 3.8 cm LA Volume Index 32.4 cm?/m? 16 - 28 cm?/m? DOPPLER AV Peak Velocity 140.0 cm/s AV Peak Gradient 7.8 mmHg AV Mean Gradient 4.0 mmHg AV Velocity Time Integral 30.9 cm LVOT Peak Velocity 134.0 cm/s LVOT Peak Gradient 7.2 mmHg LVOT Velocity Time Integral 27.4 cm LVOT Cardiac Index 2589.0 cm?/min?m? AV Area Cont Eq vti 1.6 cm? AV Area Cont Eq pk 1.7 cm? MV Area PHT 4.6 cm? MR Peak Velocity 507.0 cm/s MR Peak Gradient 102.8 mmHg Mitral E Point Velocity 111.0 cm/s Mitral A Point Velocity 129.0 cm/s Mitral E to A Ratio 0.9 LV E' Lateral Velocity 6.4 cm/s Mitral E to LV E' Lateral Ratio 17.3 LV E' Septal Velocity 10.4 cm/s Mitral E to LV E' Septal Ratio 10.7 TR Peak Velocity 349.5 cm/s TR Peak Gradient 48.9 mmHg FINDINGS Left Ventricle Normal left ventricular size, wall thickness, systolic function with no obvious regional wall motion abnormalities. Normal left ventricular diastolic filling pattern for age. The ejection fraction is visually estimated at 55-60 %. There is grade I diastolic dysfunction. Right Ventricle The right ventricle is normal in size and systolic function. The estimated right ventricular systolic pressure, 68 mmHg. RAP 5. Left Atrium The left atrium is normal by two-dimensional, color flow and Doppler imaging with no structural abnormalities, no thrombus formation present. Right Atrium The right atrium is normal by two-dimensional imaging, color flow and Doppler imaging with no structural abnormalities, no thrombus formation present. Atrial Septum The interatrial septum appears normal with no evidence of a shunt. Aorta The aorta is normal by two-dimensional, color flow and Doppler interrogation. Mitral Valve [id number] mitral regurgitation. Aortic Valve The aortic valve is trileaflet and normal by two-dimensional, color flow and Doppler interrogation. There is no significant aortic valve regurgitation. Tricuspid Valve There is mild to moderate tricuspid valve regurgitation. Pulmonic Valve The pulmonic valve is not well visualized. There is no significant pulmonic valve regurgitation. Vessels The pulmonary artery appears normal. The inferior vena cava pulmonary and hepatic veins appear normal. Pericardium The pericardium is normal by two-dimensional imaging. There is no significant pericardial effusion. CONCLUSIONS Indication: Hypoxia Normal LV size and function. Estimated EF 55-60%. Grade I diastolic dysfunction. The RV is normal in size and systolic function. The estimated RVSP, 68 mmHg. Moderate PAH. Mild to moderate MR and TR. Mild MAC. mild biatrial dilatation. Trace pericardial effusion without tamponade. Zeke Richards (Electronically Signed) Final Date: 27 February 2025 06:02
--- NOTE | 2025-02-25 18:23 | ESPR_ITS ---
<Statement entered by Uzma Matute MD - 03/03/25 13:19> I reviewed above note and agree with findings and plans. I have also personally examined the patient with medicine team and went over assessment and plan with medical team including recording studio intern and resident physician. <Statement entered by Ruddy Olivarez MD - 02/26/25 14:48> Senior Resident Attestation: I supervised/discussed management plan with recording studio intern physician Dr. Washington, and was involved in the care of this patient. I personally saw and examined the patient and discussed the assessment and plan with the entire medicine team, including my attending. I agree with the assessment and plan as documented. Patient continues to be on high flow oxygen and IV antibiotics. Her cocci returned negative. Will continue current management and monitor patient. Patient's care was discussed with attending physician, Dr. Matute. Ruddy Olivarez MD PGY-2. Documentation for date of: 02/25/25 Subjective Subjective Interval history: Patient is seen and examined at bedside No acute overnight events. Still complaining of shortness of breath and cough with expectoration Patient is still on high flow oxygen, 25 L/min, 45% FiO2 Will continue antibiotics for now Will repeat cocci tomorrow Exam Vital Signs Temp Pulse Resp BP Pulse Ox O2 Del Method O2 Flow Rate 97.8 F 94 20 148/72 H 93 L High Flow Nasal Cannula 02/25/25 16:00 02/25/25 16:00 02/25/25 16:00 02/25/25 16:00 02/25/25 16:00 02/25/25 16:00 02/25/25 16:00 FiO2 45 02/25/25 16:00 Narrative Exam General: Awake. On high flow oxygen HEENT: Normocephalic, atraumatic, mucous membranes moist. Heart: Regular rate and regular rhythm, no murmurs. Lungs: Bilateral bronchial breath sounds noted Abdomen: Soft, nondistended, nontender, positive bowel sounds. ?No guarding or rebound tenderness. Neurologic: Alert and oriented x3, no gross neurological deficit, and patient able to move all 4 extremities. Extremities: No edema. Skin: No rash or ecchymoses. Objective Labs 02/25/25 05:06 02/25/25 05:06 Labs: Laboratory Results - last 24 hr 02/23/25 02/25/25 16:00 05:06 WBC 16.8 H D RBC 3.31 L Hgb 9.6 L Hct 26.9 L MCV 81 MCH 29.0 MCHC 35.7 RDW Std Deviation 48.7 H Plt Count 235 D Neut % (Auto) 91 H Lymph % (Auto) 5 L [place] % (Auto) 3 Eos % (Auto) 0 Baso % (Auto) 0 Neut # (Auto) 15.2 H Lymph # (Auto) 0.8 L [place] # (Auto) 0.5 Eos # (Auto) 0.0 Baso # (Auto) 0.0 Immature Gran # (Auto) 0.25 H Absolute Nucleated RBC 0.05 H Immature Gran % 2 H Nucleated RBC % 0 Sodium 135 L Potassium 3.8 Chloride 105 Carbon Dioxide 21.7 Anion Gap 8 BUN 20 Creatinine 0.8 Estim Creat Clear Calc 46.6 L eGFR > 60 BUN/Creatinine Ratio 25 H Glucose 118 H Calculated Osmolality 273 L Calcium 7.8 L Corrected Calcium 8.6 Total Bilirubin 0.9 AST 17 ALT 11 Alkaline Phosphatase 156 H D Total Protein 5.5 L Albumin 3.0 L Globulin 2.5 Albumin/Globulin Ratio 1.2 Coccidioides IgG Ab Negative ABG Interpretation ABG results: 02/24/25 00:25 ABG pH 7.38 ABG pCO2 35 ABG pO2 87 ABG HCO3 20 ABG O2 Saturation 97 ABG Base Excess -4 L Quality Measures Quality Measures none Advance care planning discussed with:: patient Assessment & Plan Assessment Current Active Medications: Generic Name Dose Route Start Last Admin Trade Name Freq PRN Reason Stop Dose Admin Acetaminophen 650 mg 02/23/25 17:24 Acetaminophen 325 Mg Tablet PO 03/25/25 17:23 Q6H PRN Fever >101.5 Hydrocodone Bitart/Acetaminophen 1 tab 02/23/25 19:30 02/25/25 17:01 Hydrocodone/Apap 5/325 Tablet PO 02/28/25 19:29 1 tab Q8HR PRN Administration Pain 7-10 Albuterol/Ipratropium 3 ml 02/24/25 03:00 02/25/25 14:54 Albuterol/Ipratropium (Duoneb) Rt Helen 3 Ml Nebu INH 03/26/25 02:59 3 ml Q4HRRT MARISOL Administration Albuterol/Ipratropium 3 ml 02/23/25 23:37 Albuterol/Ipratropium (Duoneb) Rt Helen 3 Ml Nebu INH 03/25/25 23:36 Q2HR PRN SHORTNESS OF BREATH OR WHEEZE Azithromycin 500 mg 02/23/25 17:45 02/25/25 10:04 Azithromycin 250 Mg Tablet PO 03/02/25 17:44 500 mg QDAY MARISOL Administration Calcium Carbonate 600 mg 02/24/25 05:10 02/25/25 10:05 Calcium Carbonate 600 Mg Tablet PO 03/26/25 05:09 600 mg QDAY MARISOL Administration Docusate Sodium 100 mg 02/23/25 17:24 Docusate Sod 100 Mg Capsule PO 03/25/25 17:23 QDAY PRN CONSTIPATION Protocol Enoxaparin Sodium 30 mg 02/24/25 09:00 02/25/25 10:05 Enoxaparin Sod Inj 30 Mg/0.3 Ml Syringe SC 03/10/25 08:59 30 mg QDAY MARISOL Administration Lactated Ringer's 1,000 mls @ 75 mls/hr 02/23/25 17:30 02/24/25 01:30 Lactated Ringers IV 0 mls/hr .[id number] MARISOL Infusion Cefepime HCl 2 gm/ Sodium 50 mls @ 100 mls/hr 02/24/25 10:45 02/25/25 10:07 Chloride IV 03/03/25 10:44 100 mls/hr Q12HR MARISOL Administration Vancomycin/Sodium Chloride 200 mls @ 120 mls/hr 02/25/25 10:00 02/25/25 11:20 Vancomycin/Ns 1 Gm Ivpb IV 03/04/25 09:59 120 mls/hr Q24H MARISOL Administration Midodrine 10 mg 02/24/25 06:00 02/25/25 13:00 Midodrine 5 Mg Tablet PO 03/26/25 05:59 Not Given TID MARISOL Ondansetron HCl 4 mg 02/23/25 17:24 Ondansetron Inj 2 Mg/Ml Inj 2 Ml IV 03/25/25 17:23 Q6H PRN NAUSEA OR VOMITING Protocol Pantoprazole Sodium 40 mg 02/24/25 09:00 02/25/25 10:05 Pantoprazole 40 Mg Tablet PO 03/26/25 08:59 40 mg QDAY MARISOL Administration Pharmacy Consult 1 each 02/24/25 10:45 Vancomycin Pharmacy To Dose 1 Each Each IV 03/26/25 10:44 QDAY PRN CONSULT Promethazine HCl/Dextromethorphan 10 ml 02/23/25 18:00 02/25/25 18:02 Promethazine/Dm Syrup 5 Ml Dose PO 03/25/25 17:59 10 ml Q6HR MARISOL Administration Protocol Tizanidine HCl 4 mg 02/23/25 21:00 02/24/25 20:47 Tizanidine Hcl 2 Mg Tablet PO 03/25/25 20:59 4 mg HS MARISOL Administration Plan A 79-year-old female with significant past medical history of hypertension, chronic back pain on opioids presented to the hospital with chief complaints of cough and admitted in the hospital for acute hypoxic respiratory failure secondary to right lung pneumonia # Acute hypoxic respiratory failure # 2/2 Right lung pneumonia # Likely community-acquired pneumonia, to rule out cocci # Leukocytosis - Patient presented to the hospital with chief complaints of cough with expectoration associated with shortness of breath since 2 weeks - Denies fever, nausea, vomitings - Vitals at the time of admission are significant for SpO2 95% with 6 L oxygen - Labs are significant for WBC 19, Hb 11.8 - Chest x-ray showed patchy infiltrate in right upper lobe - Tested negative for COVID, influenza A and B - Blood and urine cultures are ordered, pending - Sputum culture and Gram stain was ordered, pending - Cocci IgM and IgG were ordered -IgM came back negative - JUAN M and ANCA titres are ordered Plan - Started on ceftriaxone and azithromycin [02/23/2025] - Ceftriaxone was stopped on 02/24/2025 and patient was started on cefepime and vancomycin [02/24-present], will continue azithromycin for now - Oxygen as needed - Chest physiotherapy and incentive spirometry - Promethazine and dextromethorphan every 6 hourly - DuoNebs every 6 hourly # VERONICA, resolved Likely prerenal in the setting of pneumonia - Baseline creatinine is 0.7 in 02/2024 - At the time of admission, BUN is 39, creatinine is 1.6 --- improved to 0.8 Plan - Avoid nephrotoxic medications and renally dose medications - Will continue to monitor renal functions # Hypokalemia, resolved # Hyponatremia, resolved # Hypomagnesemia, resolved - Low sodium could be due to the ongoing lung pathology - Hypokalemia and hypomagnesemia could be due to poor oral intake in the setting of acute illness - At the time of admission, potassium is 3.1, magnesium is 1.4 -->came back to normal limits Plan - Will continue to monitor electrolytes and replete accordingly # Chronic anemia - Hemoglobin is 11.1 on 02/2024 - Hemoglobin at the time of admission is 11.8 - Likely nutritional - Recommended to follow-up in outpatient basis for further evaluation # Hypocalcemia, likely secondary to vitamin D deficiency - Corrected calcium at the time of admission is 8.2 - Vitamin D levels are 4.4, supplemented with calcitriol 50,000 IU X1 - Started on calcium supplements # History of hypertension - Patient is using amlodipine 10 Mg p.o. daily and benazepril 40 Mg p.o. daily at home - Blood pressures are within normal limits since the hospital admission, will withhold antihypertensives for now - Will continue to monitor blood pressures and add medications as needed # History of osteoporosis # History of chronic back pain - Patient is using alendronate and [place] as needed for the back pain - Resumed [place] 5 every 8 hourly as needed - Resumed home tizanidine - Home med rec is ordered Hospital Maintenance: Dispo: Med/tele DVT ppx: Lovenox GI ppx: Protonix Diet: Regular IV lines: Peripheral Code status: Full code Patient plan of care was discussed with the attending physician, Dr. Matute and senior resident Dr. Sher Washington, PGY1
[2025-02-25] MEDS: tiZANidine HCL 2 MG TABLET 4 MG PO (20:26)
[2025-02-25] MEDS: CHOLECALCIFEROL (Vitamin D3) 1,000 IU TABLET 1000 IU PO (20:26)
[2025-02-26] VITALS (16 sets, daily range): BP systolic 130–163; BP diastolic 61–89; PULSE 78–113; RESP 18–24; TEMP 36.2–37.1; O2SAT 92–98
[2025-02-26] MEDS: PROMETHAZINE HCL SYRUP 6.25 MG/5 ML UDC PO ×5 (01:11→23:30)
[2025-02-26] MEDS: guaiFENesin/DM 10 ML UDC PO ×5 (01:11→23:30)
[2025-02-26] MEDS: ALBUTEROL/IPRATROPIUM (Duoneb) RT SOL 3 ML NEBU INH ×6 (02:45→23:03)
[2025-02-26] MEDS: HYDROcodone/APAP 5/325 TABLET 1 TAB PO (05:57)
[2025-02-26 06:30] LABS: Basophils % (Auto) 0 % (0-2.5); Eosinophils # (Auto) 0.1 Thou/mm3 (0.0-0.5); Eosinophils % (Auto) 0 % (0-10); Hematocrit 27.7 % (36.0-46.0); Hemoglobin 9.9 g/dL (12.0-16.0); Immature Granulocytes % (Auto) 4 % (0-0); Immature Granulocytes Auto 0.42 Thou/mm3 (0.00-0.00); Lymphocytes # (Auto) 1.1 Thou/mm3 (1.0-4.8); Lymphocytes % (Auto) 9 % (10-50); Mean Corpuscular HGB Conc 35.7 g/dl (31.0-37.0); Mean Corpuscular Hemoglobin 29.5 pg (25.0-35.0); Mean Corpuscular Volume 82 fL (80-100); Monocytes # (Auto) 0.7 Thou/mm3 (0.0-0.8); Monocytes % (Auto) 7 % (0-12); Neutrophils # (Auto) 9.1 Thou/mm3 (1.8-7.7); Neutrophils % (Auto) 80 % (37-80); Nucleated Red Blood Cell # 0.05 Thou/mm3 (0.00-0.00); Nucleated Red Blood Cell % 0 /100 WBC (0); Platelet Count 263 Thou/mm3 (140-440); RDW Standard Deviation 48.7 fL (36.4-46.3); Red Blood Count 3.36 Miln/mm3 (4.00-5.20); White Blood Count 11.4 Thou/mm3 (3.6-11.0)
[2025-02-26] MEDS: AZITHROMYCIN 250 MG TABLET 500 MG PO (08:56)
[2025-02-26] MEDS: PANTOPRAZOLE 40 MG TABLET PO (08:56)
[2025-02-26] MEDS: CHOLECALCIFEROL (Vitamin D3) 1,000 IU TABLET 1000 IU PO (08:56)
[2025-02-26] MEDS: CALCIUM CARBONATE 600 MG TABLET PO (08:56)
[2025-02-26] MEDS: CEFEPIME INJ 2 GM in SODIUM CHLORIDE 0.9% (Popper) 50 ML IV ×2 (08:57→21:08)
[2025-02-26] MEDS: ENOXAPARIN SOD INJ 30 MG/0.3 ML SYRINGE SC (08:57)
[2025-02-26 09:01] LABS: Alanine Aminotransferase 14 U/L (10-49); Albumin, Serum 3.2 gm/dL (3.4-4.8); Alkaline Phosphatase 171 U/L (46-116); Chloride 101 mMol/L (98-107); Potassium 3.4 mMol/L (3.4-5.1); Sodium 132 mMol/L (136-145)
[2025-02-26 09:14] LABS: Albumin/Globulin Ratio 1.1 (1.2-2.2); Anion Gap 12 (7-16); Aspartate Amino Transferase 27 U/L (0-34); BUN/Creatinine Ratio 18 Ratio (12-20); Bilirubin,Total 1.1 mg/dL (0.3-1.2); Blood Urea Nitrogen 11 mg/dL (9-23); Calcium 7.9 mg/dL (8.3-10.6); Calcium (Corrected) 8.5 mg/dL (8.5-10.1); Carbon Dioxide 19.1 mMol/L (20.0-31.0); Creatinine (Component) 0.6 mg/dL (0.6-1.3); Estimated Creatinine Clearance 62.1 mL/min (>60); Globulin 2.9 gm/dL (2.3-3.5); Glucose 95 mg/dL (74-106); Osmolality,Calculated 263 (275-295); Total Protein 6.1 gm/dL (5.7-8.2); eGFR > 60 See Note
[2025-02-26] MEDS: VANCOMYCIN/NS 1 GM IVPB 200 ML IV (10:47)
[2025-02-26] MEDS: LIDOCAINE 5% 1 PATCH TOP (12:55)
[2025-02-26] MEDS: oxyCODONE/APAP 5/325 TABLET 1 TAB PO (12:55)
[2025-02-26 13:58] LABS: Cocci Serology, IgM Negative (Negative)
--- NOTE | 2025-02-26 14:49 | PC.SS ---
SS follow up note: Patient is currently on High flow and still on IV ABX. Once patient is medically cleared patient will return back home with .
--- NOTE | 2025-02-26 18:03 | ESPR_ITS ---
<Statement entered by Uzma Matute MD - 03/04/25 13:38> I reviewed above note and agree with findings and plans. I have also personally examined the patient with medicine team and went over assessment and plan with medical team including video production intern and resident physician. <Statement entered by Ruddy Olivarez MD - 03/01/25 13:58> Senior Resident Attestation: I supervised/discussed management plan with video production intern physician Dr. Washington, and was involved in the care of this patient. I personally saw and examined the patient and discussed the assessment and plan with the entire medicine team, including my attending. I agree with the assessment and plan as documented. Patient continues on high flow but oxygen demand has reduced. Will continue IV diuresis and monitor. Patient's care was discussed with attending physician, Dr. Matute. Ruddy Olivarez MD PGY-2. Documentation for date of: 02/26/25 Subjective Subjective Interval history: Patient is seen and examined at bedside No acute overnight events. Denies any other complaints except for cough and expectoration Vitals are stable and patient is still on high flow oxygen Labs are significant for leukocytosis which is downtrending, mild hyponatremia which could be due to SIADH from ongoing lung disease Will continue to try to wean her off the high flow oxygen - Will continue incentive spirometry, chest physiotherapy and antibiotics Exam Vital Signs Temp Pulse Resp BP Pulse Ox O2 Del Method O2 Flow Rate 98.5 F 95 18 140/75 H 97 High Flow Nasal Cannula 20 02/26/25 16:00 02/26/25 16:00 02/26/25 16:00 02/26/25 16:00 02/26/25 16:00 02/26/25 16:00 02/26/25 16:00 FiO2 40 02/26/25 16:00 Narrative Exam General: Awake. On high flow oxygen HEENT: Normocephalic, atraumatic, mucous membranes moist. Heart: Regular rate and regular rhythm, no murmurs. Lungs: Bilateral bronchial breath sounds noted Abdomen: Soft, nondistended, nontender, positive bowel sounds. ?No guarding or rebound tenderness. Neurologic: Alert and oriented x3, no gross neurological deficit, and patient able to move all 4 extremities. Extremities: No edema. Skin: No rash or ecchymoses. Objective Labs 02/26/25 05:20 02/26/25 05:20 Labs: Laboratory Results - last 24 hr 02/26/25 05:20 WBC 11.4 H D RBC 3.36 L Hgb 9.9 L Hct 27.7 L MCV 82 MCH 29.5 MCHC 35.7 RDW Std Deviation 48.7 H Plt Count 263 Neut % (Auto) 80 Lymph % (Auto) 9 L [place] % (Auto) 7 Eos % (Auto) 0 Baso % (Auto) 0 Neut # (Auto) 9.1 H Lymph # (Auto) 1.1 [place] # (Auto) 0.7 Eos # (Auto) 0.1 Baso # (Auto) 0.0 Immature Gran # (Auto) 0.42 H Absolute Nucleated RBC 0.05 H Immature Gran % 4 H Nucleated RBC % 0 Sodium 132 L Potassium 3.4 Chloride 101 Carbon Dioxide 19.1 L Anion Gap 12 BUN 11 Creatinine 0.6 Estim Creat Clear Calc 62.1 eGFR > 60 BUN/Creatinine Ratio 18 Glucose 95 Calculated Osmolality 263 L Calcium 7.9 L Corrected Calcium 8.5 Total Bilirubin 1.1 AST 27 ALT 14 Alkaline Phosphatase 171 H Total Protein 6.1 Albumin 3.2 L Globulin 2.9 Albumin/Globulin Ratio 1.1 L Coccidioides IgM Ab Negative ABG Interpretation ABG results: 02/24/25 00:25 ABG pH 7.38 ABG pCO2 35 ABG pO2 87 ABG HCO3 20 ABG O2 Saturation 97 ABG Base Excess -4 L Quality Measures Quality Measures none Advance care planning discussed with:: patient Assessment & Plan Assessment Current Active Medications: Generic Name Dose Route Start Last Admin Trade Name Freq PRN Reason Stop Dose Admin Acetaminophen 650 mg 02/26/25 09:13 Acetaminophen 325 Mg Tablet PO 03/25/25 17:23 Q6H PRN Fever >100.3 Albuterol/Ipratropium 3 ml 02/24/25 03:00 02/26/25 15:23 Albuterol/Ipratropium (Duoneb) Rt Helen 3 Ml Nebu INH 03/26/25 02:59 3 ml Q4HRRT MARISOL Administration Albuterol/Ipratropium 3 ml 02/23/25 23:37 Albuterol/Ipratropium (Duoneb) Rt Helen 3 Ml Nebu INH 03/25/25 23:36 Q2HR PRN SHORTNESS OF BREATH OR WHEEZE Azithromycin 500 mg 02/23/25 17:45 02/26/25 08:56 Azithromycin 250 Mg Tablet PO 03/02/25 17:44 500 mg QDAY MARISOL Administration Calcium Carbonate 600 mg 02/24/25 05:10 02/26/25 08:56 Calcium Carbonate 600 Mg Tablet PO 03/26/25 05:09 600 mg QDAY MARISOL Administration Docusate Sodium 100 mg 02/23/25 17:24 Docusate Sod 100 Mg Capsule PO 03/25/25 17:23 QDAY PRN CONSTIPATION Protocol Enoxaparin Sodium 40 mg 02/27/25 09:00 Enoxaparin Sod Inj 40 Mg/0.4 Ml Syringe SC 03/10/25 08:59 QDAY MARISOL Guaifenesin/Dextromethorphan 10 ml 02/26/25 00:00 02/26/25 12:55 Guaifenesin/Dm 10 Ml Udc PO 03/28/25 00:00 10 ml Q6HR MARISOL Administration Lactated Ringer's 1,000 mls @ 75 mls/hr 02/23/25 17:30 02/24/25 01:30 Lactated Ringers IV 0 mls/hr .[id number] MARISOL Infusion Cefepime HCl 2 gm/ Sodium 50 mls @ 100 mls/hr 02/24/25 10:45 02/26/25 08:57 Chloride IV 03/03/25 10:44 100 mls/hr Q12HR MARISOL Administration Vancomycin/Sodium Chloride 200 mls @ 120 mls/hr 02/25/25 10:00 02/26/25 10:47 Vancomycin/Ns 1 Gm Ivpb IV 03/04/25 09:59 120 mls/hr Q24H MARISOL Administration Protocol Midodrine 10 mg 02/24/25 06:00 02/26/25 15:15 Midodrine 5 Mg Tablet PO 03/26/25 05:59 Not Given TID MARISOL Ondansetron HCl 4 mg 02/23/25 17:24 Ondansetron Inj 2 Mg/Ml Inj 2 Ml IV 03/25/25 17:23 Q6H PRN NAUSEA OR VOMITING Protocol Oxycodone/Acetaminophen 1 tab 02/26/25 11:26 02/26/25 12:55 Oxycodone/Apap 5/325 Tablet PO 03/03/25 11:25 1 tab Q6HR PRN Administration Pain 7-10 Pantoprazole Sodium 40 mg 02/24/25 09:00 02/26/25 08:56 Pantoprazole 40 Mg Tablet PO 03/26/25 08:59 40 mg QDAY MARISOL Administration Pharmacy Consult 1 each 02/24/25 10:45 Vancomycin Pharmacy To Dose 1 Each Each IV 03/26/25 10:44 QDAY PRN CONSULT Promethazine HCl 6.25 mg 02/26/25 00:00 02/26/25 12:55 Promethazine Hcl Syrup 6.25 Mg/5 Ml Udc PO 03/28/25 00:00 6.25 mg Q6HR MARISOL Administration Tizanidine HCl 4 mg 02/23/25 21:00 02/25/25 20:26 Tizanidine Hcl 2 Mg Tablet PO 03/25/25 20:59 4 mg HS MARISOL Administration Vitamin D 1,000 iu 02/25/25 18:37 02/26/25 08:56 Cholecalciferol (Vitamin D3) 1,000 Iu Tablet PO 03/27/25 18:36 1,000 iu QDAY MARISOL Administration Plan A 79-year-old female with significant past medical history of hypertension, chronic back pain on opioids presented to the hospital with chief complaints of cough and admitted in the hospital for acute hypoxic respiratory failure secondary to right lung pneumonia # Acute hypoxic respiratory failure # 2/2 Right lung pneumonia # Likely community-acquired pneumonia # Leukocytosis, resolving - Patient presented to the hospital with chief complaints of cough with expectoration associated with shortness of breath since 2 weeks - Denies fever, nausea, vomitings - Vitals at the time of admission are significant for SpO2 95% with 6 L oxygen - Labs are significant for WBC 19, Hb 11.8 - Chest x-ray showed patchy infiltrate in right upper lobe - Tested negative for COVID, influenza A and B - Blood cultures on 02/23/2025, blood culture came back positive for Streptococcus pneumonia and other culture is negative - Blood cultures on 02/24/2025 came back negative after 48 hours - Sputum culture and Gram stain came back negative - Cocci IgM and IgG were ordered -IgM came back negative twice - JUAN M and ANCA titres are ordered Plan - Started on ceftriaxone and azithromycin [02/23/2025] - Ceftriaxone was stopped on 02/24/2025 and patient was started on cefepime and vancomycin [02/24-present], will continue azithromycin for now - Oxygen as needed - Chest physiotherapy and incentive spirometry - Dextromethorphan every 6 hourly - DuoNebs every 4th hourly # VERONICA, resolved Likely prerenal in the setting of pneumonia - Baseline creatinine is 0.7 in 02/2024 - At the time of admission, BUN is 39, creatinine is 1.6 --- improved to 0.8 Plan - Avoid nephrotoxic medications and renally dose medications - Will continue to monitor renal functions # Hypokalemia, resolved # Hyponatremia, resolved # Hypomagnesemia, resolved - Low sodium could be due to the ongoing lung pathology - Hypokalemia and hypomagnesemia could be due to poor oral intake in the setting of acute illness - At the time of admission, potassium is 3.1, magnesium is 1.4 -->came back to normal limits Plan - Will continue to monitor electrolytes and replete accordingly # Chronic anemia - Hemoglobin is 11.1 on 02/2024 - Hemoglobin at the time of admission is 11.8 - Likely nutritional - Recommended to follow-up in outpatient basis for further evaluation # Hypocalcemia, secondary to vitamin D deficiency - Corrected calcium at the time of admission is 8.2 - Vitamin D levels are 4.4, supplemented with calcitriol 50,000 IU X1 - Started on calcium supplements # History of hypertension - Patient is using amlodipine 10 Mg p.o. daily and benazepril 40 Mg p.o. daily at home - Blood pressures are within normal limits since the hospital admission, will withhold antihypertensives for now - Will continue to monitor blood pressures and add medications as needed # History of osteoporosis # History of chronic back pain - Patient is using alendronate and [place] as needed for the back pain - Resumed [place] 5 every 8 hourly as needed - Resumed home tizanidine - Home med rec is ordered Hospital Maintenance: Dispo: Med/tele DVT ppx: Lovenox GI ppx: Protonix Diet: Regular IV lines: Peripheral Code status: Full code Patient plan of care was discussed with the attending physician, Dr. Matute and senior resident Dr. Sher Washington, PGY1
[2025-02-26] MEDS: POTASSIUM CHLORIDE 20 mEq TABCR 40 MEQ PO (18:20)
[2025-02-26] MEDS: tiZANidine HCL 2 MG TABLET 4 MG PO (21:08)
[2025-02-26] MEDS: oxyCODONE/APAP 5/325 TABLET 2 TAB PO (22:08)
[2025-02-27] VITALS (18 sets, daily range): BP systolic 106–153; BP diastolic 52–82; PULSE 83–113; RESP 14–22; TEMP 36.1–36.9; O2SAT 94–100; BMI 23.7
[2025-02-27] MEDS: ALBUTEROL/IPRATROPIUM (Duoneb) RT SOL 3 ML NEBU INH ×6 (03:47→23:34)
[2025-02-27] MEDS: guaiFENesin/DM 10 ML UDC PO ×4 (05:14→23:48)
[2025-02-27] MEDS: PROMETHAZINE HCL SYRUP 6.25 MG/5 ML UDC PO ×4 (05:14→23:48)
[2025-02-27 05:55] LABS: Basophils % (Auto) 0 % (0-2.5); Eosinophils # (Auto) 0.2 Thou/mm3 (0.0-0.5); Eosinophils % (Auto) 2 % (0-10); Hemoglobin 9.8 g/dL (12.0-16.0); Immature Granulocytes % (Auto) 5 % (0-0); Immature Granulocytes Auto 0.62 Thou/mm3 (0.00-0.00); Lymphocytes # (Auto) 1.7 Thou/mm3 (1.0-4.8); Lymphocytes % (Auto) 15 % (10-50); Mean Corpuscular Hemoglobin 29.3 pg (25.0-35.0); Mean Corpuscular Volume 84 fL (80-100); Monocytes # (Auto) 1.4 Thou/mm3 (0.0-0.8); Monocytes % (Auto) 12 % (0-12); Neutrophils # (Auto) 7.5 Thou/mm3 (1.8-7.7); Neutrophils % (Auto) 66 % (37-80); Nucleated Red Blood Cell # 0.03 Thou/mm3 (0.00-0.00); Nucleated Red Blood Cell % 0 /100 WBC (0); Platelet Count 229 Thou/mm3 (140-440); RDW Standard Deviation 49.1 fL (36.4-46.3); Red Blood Count 3.35 Miln/mm3 (4.00-5.20); White Blood Count 11.4 Thou/mm3 (3.6-11.0)
[2025-02-27 06:12] LABS: Anion Gap 6 (7-16); BUN/Creatinine Ratio 13 Ratio (12-20); Blood Urea Nitrogen 8 mg/dL (9-23); Calcium 7.6 mg/dL (8.3-10.6); Chloride 103 mMol/L (98-107); Creatinine (Component) 0.6 mg/dL (0.6-1.3); Estimated Creatinine Clearance 62.1 mL/min (>60); Glucose 89 mg/dL (74-106); Osmolality,Calculated 263 (275-295); Potassium 4.4 mMol/L (3.4-5.1); Sodium 133 mMol/L (136-145); eGFR > 60 See Note
[2025-02-27] MEDS: ENOXAPARIN SOD INJ 40 MG/0.4 ML SYRINGE SC (08:35)
[2025-02-27] MEDS: AZITHROMYCIN 250 MG TABLET 500 MG PO (08:35)
[2025-02-27] MEDS: PANTOPRAZOLE 40 MG TABLET PO (08:35)
[2025-02-27] MEDS: CALCIUM CARBONATE 600 MG TABLET PO (08:35)
[2025-02-27] MEDS: oxyCODONE/APAP 5/325 TABLET 2 TAB PO ×3 (08:36→22:49)
[2025-02-27] MEDS: CEFEPIME INJ 2 GM in SODIUM CHLORIDE 0.9% (Popper) 50 ML IV ×2 (08:36→20:35)
[2025-02-27] MEDS: CHOLECALCIFEROL (Vitamin D3) 1,000 IU TABLET 1000 IU PO (08:36)
[2025-02-27 10:40] LABS: Vancomycin,Trough 8.7 mcg/mL (5.0-10.0)
[2025-02-27] MEDS: VANCOMYCIN/NS 750 MG IVPB 750 MG/150 ML BAG 120 MG IV ×2 (11:38→22:12)
--- NOTE | 2025-02-27 15:57 | ESPR_ITS ---
<Statement entered by Uzma Matute MD - 03/04/25 13:44> I reviewed above note and agree with findings and plans. I have also personally examined the patient with medicine team and went over assessment and plan with medical team including international logistics analyst and resident physician. <Statement entered by Ruddy Olivarez MD - 03/01/25 14:30> Senior Resident Attestation: I supervised/discussed management plan with international logistics analyst physician Dr. Washington, and was involved in the care of this patient. I personally saw and examined the patient and discussed the assessment and plan with the entire medicine team, including my attending. I agree with the assessment and plan as documented. Patient was transitioned to [place] oxygen and now is on 4L saturating well. Will continue current management. Patient's care was discussed with attending physician, Dr. Matute. Ruddy Olivarez MD PGY-2. Documentation for date of: 02/27/25 Subjective Subjective Interval history: Patient is seen and examined at bedside No acute overnight events. Reported that he is doing better but still had some cough Patient vitals are stable and is started on nasal cannula, 4 L/min Will continue antibiotics for now If the patient continues to do well, will discharge tomorrow on oral antibiotics. Exam Vital Signs Temp Pulse Resp BP Pulse Ox O2 Del Method O2 Flow Rate 97.9 F 108 H 20 147/74 H 99 High Flow Nasal Cannula 3 02/27/25 12:00 02/27/25 15:31 02/27/25 15:01 02/27/25 12:00 02/27/25 15:01 02/27/25 07:35 02/27/25 15:01 FiO2 40 02/27/25 07:35 Narrative Exam General: Awake. On oxygen, 4l/min HEENT: Normocephalic, atraumatic, mucous membranes moist. Heart: Regular rate and regular rhythm, no murmurs. Lungs: Bilateral bronchial breath sounds noted Abdomen: Soft, nondistended, nontender, positive bowel sounds. ?No guarding or rebound tenderness. Neurologic: Alert and oriented x3, no gross neurological deficit, and patient able to move all 4 extremities. Extremities: No edema. Skin: No rash or ecchymoses. Objective Labs 03/01/25 04:49 03/01/25 04:49 Labs: Laboratory Results - last 24 hr 02/27/25 02/27/25 04:57 09:32 WBC 11.4 H RBC 3.35 L Hgb 9.8 L Hct 28.0 L MCV 84 MCH 29.3 MCHC 35.0 RDW Std Deviation 49.1 H Plt Count 229 D Neut % (Auto) 66 Lymph % (Auto) 15 Emanuel % (Auto) 12 Eos % (Auto) 2 Baso % (Auto) 0 Neut # (Auto) 7.5 Lymph # (Auto) 1.7 Emanuel # (Auto) 1.4 H Eos # (Auto) 0.2 Baso # (Auto) 0.0 Immature Gran # (Auto) 0.62 H Absolute Nucleated RBC 0.03 H Immature Gran % 5 H Nucleated RBC % 0 Sodium 133 L Potassium 4.4 D Chloride 103 Carbon Dioxide 24.0 Anion Gap 6 L BUN 8 L Creatinine 0.6 Estim Creat Clear Calc 62.1 eGFR > 60 BUN/Creatinine Ratio 13 Glucose 89 Calculated Osmolality 263 L Calcium 7.6 L Vancomycin Trough 8.7 ABG Interpretation ABG results: 02/24/25 00:25 ABG pH 7.38 ABG pCO2 35 ABG pO2 87 ABG HCO3 20 ABG O2 Saturation 97 ABG Base Excess -4 L Quality Measures Quality Measures none Advance care planning discussed with:: patient Assessment & Plan Assessment Current Active Medications: Generic Name Dose Route Start Last Admin Trade Name Freq PRN Reason Stop Dose Admin Acetaminophen 650 mg 02/26/25 09:13 Acetaminophen 325 Mg Tablet PO 03/25/25 17:23 Q6H PRN Fever >100.3 Albuterol/Ipratropium 3 ml 02/24/25 03:00 02/27/25 15:01 Albuterol/Ipratropium (Duoneb) Rt Helen 3 Ml Nebu INH 03/26/25 02:59 3 ml Q4HRRT MARISOL Administration Albuterol/Ipratropium 3 ml 02/23/25 23:37 Albuterol/Ipratropium (Duoneb) Rt Helen 3 Ml Nebu INH 03/25/25 23:36 Q2HR PRN SHORTNESS OF BREATH OR WHEEZE Azithromycin 500 mg 02/23/25 17:45 02/27/25 08:35 Azithromycin 250 Mg Tablet PO 03/02/25 17:44 500 mg QDAY MARISOL Administration Calcium Carbonate 600 mg 02/24/25 05:10 02/27/25 08:35 Calcium Carbonate 600 Mg Tablet PO 03/26/25 05:09 600 mg QDAY MARISOL Administration Docusate Sodium 100 mg 02/23/25 17:24 Docusate Sod 100 Mg Capsule PO 03/25/25 17:23 QDAY PRN CONSTIPATION Protocol Enoxaparin Sodium 40 mg 02/27/25 09:00 02/27/25 08:35 Enoxaparin Sod Inj 40 Mg/0.4 Ml Syringe SC 03/10/25 08:59 40 mg QDAY MARISOL Administration Guaifenesin/Dextromethorphan 10 ml 02/26/25 00:00 02/27/25 12:37 Guaifenesin/Dm 10 Ml Udc PO 03/28/25 00:00 10 ml Q6HR MARISOL Administration Cefepime HCl 2 gm/ Sodium 50 mls @ 100 mls/hr 02/24/25 10:45 02/27/25 08:36 Chloride IV 03/03/25 10:44 100 mls/hr Q12HR MARISOL Administration Vancomycin/Sodium Chloride 750 mg in 150 mls @ 120 mls/hr 02/27/25 11:15 02/27/25 11:38 Vancomycin/Ns 750 Mg Ivpb IV 03/06/25 11:14 120 mls/hr QDAY@1000,2200 MARISOL Administration Ondansetron HCl 4 mg 02/23/25 17:24 Ondansetron Inj 2 Mg/Ml Inj 2 Ml IV 03/25/25 17:23 Q6H PRN NAUSEA OR VOMITING Protocol Oxycodone/Acetaminophen 2 tab 02/26/25 21:30 02/27/25 08:36 Oxycodone/Apap 5/325 Tablet PO 03/03/25 11:25 2 tab Q6HR PRN Administration Pain 7-10 Pantoprazole Sodium 40 mg 02/24/25 09:00 02/27/25 08:35 Pantoprazole 40 Mg Tablet PO 03/26/25 08:59 40 mg QDAY MARISOL Administration Pharmacy Consult 1 each 02/24/25 10:45 Vancomycin Pharmacy To Dose 1 Each Each IV 03/26/25 10:44 QDAY PRN CONSULT Promethazine HCl 6.25 mg 02/26/25 00:00 02/27/25 12:37 Promethazine Hcl Syrup 6.25 Mg/5 Ml Udc PO 03/28/25 00:00 6.25 mg Q6HR MARISOL Administration Tizanidine HCl 4 mg 02/23/25 21:00 02/26/25 21:08 Tizanidine Hcl 2 Mg Tablet PO 03/25/25 20:59 4 mg HS MARISOL Administration Vitamin D 1,000 iu 02/25/25 18:37 02/27/25 08:36 Cholecalciferol (Vitamin D3) 1,000 Iu Tablet PO 03/27/25 18:36 1,000 iu QDAY MARISOL Administration Plan A 79-year-old female with significant past medical history of hypertension, chronic back pain on opioids presented to the hospital with chief complaints of cough and admitted in the hospital for acute hypoxic respiratory failure secondary to right lung pneumonia # Acute hypoxic respiratory failure # 2/2 Right lung pneumonia # Likely community-acquired pneumonia # Leukocytosis, resolving - Patient presented to the hospital with chief complaints of cough with expectoration associated with shortness of breath since 2 weeks - Denies fever, nausea, vomitings - Vitals at the time of admission are significant for SpO2 95% with 6 L oxygen - Labs are significant for WBC 19, Hb 11.8 - Chest x-ray showed patchy infiltrate in right upper lobe - Tested negative for COVID, influenza A and B - Blood cultures on 02/23/2025, blood culture came back positive for Streptococcus pneumonia and other culture is negative - Blood cultures on 02/24/2025 came back negative after 48 hours - Sputum culture and Gram stain came back negative - Cocci IgM and IgG were ordered -IgM came back negative twice - JUAN M and ANCA titres are ordered Plan - Started on ceftriaxone and azithromycin [02/23/2025] - Ceftriaxone was stopped on 02/24/2025 and patient was started on cefepime and vancomycin [02/24-present], will continue azithromycin for now - Oxygen as needed - Chest physiotherapy and incentive spirometry - Dextromethorphan every 6 hourly - DuoNebs every 4th hourly # VERONICA, resolved Likely prerenal in the setting of pneumonia - Baseline creatinine is 0.7 in 02/2024 - At the time of admission, BUN is 39, creatinine is 1.6 --- improved to 0.8 Plan - Avoid nephrotoxic medications and renally dose medications - Will continue to monitor renal functions # Hypokalemia, resolved # Hyponatremia, resolved # Hypomagnesemia, resolved - Low sodium could be due to the ongoing lung pathology - Hypokalemia and hypomagnesemia could be due to poor oral intake in the setting of acute illness - At the time of admission, potassium is 3.1, magnesium is 1.4 -->came back to normal limits Plan - Will continue to monitor electrolytes and replete accordingly # Chronic anemia - Hemoglobin is 11.1 on 02/2024 - Hemoglobin at the time of admission is 11.8 - Likely nutritional - Recommended to follow-up in outpatient basis for further evaluation # Hypocalcemia, secondary to vitamin D deficiency - Corrected calcium at the time of admission is 8.2 - Vitamin D levels are 4.4, supplemented with calcitriol 50,000 IU X1 - Started on calcium supplements # History of hypertension - Patient is using amlodipine 10 Mg p.o. daily and benazepril 40 Mg p.o. daily at home - Blood pressures are within normal limits since the hospital admission, will withhold antihypertensives for now - Will continue to monitor blood pressures and add medications as needed # History of osteoporosis # History of chronic back pain - Patient is using alendronate and [place] as needed for the back pain - Resumed [place] 5 every 8 hourly as needed - Resumed home tizanidine - Home med rec is ordered Hospital Maintenance: Dispo: Med/tele DVT ppx: Lovenox GI ppx: Protonix Diet: Regular IV lines: Peripheral Code status: Full code Patient plan of care was discussed with the attending physician, Dr. Matute and senior resident Dr. Sher Washington, PGY1
[2025-02-27 17:51] LABS: (1-3)-B-D-glucan* <31 pg/mL
[2025-02-27] MEDS: tiZANidine HCL 2 MG TABLET 4 MG PO (20:35)
[2025-02-28] VITALS (16 sets, daily range): BP systolic 127–159; BP diastolic 72–90; PULSE 80–111; RESP 16–26; TEMP 36.1–36.4; O2SAT 95–100
[2025-02-28] MEDS: ALBUTEROL/IPRATROPIUM (Duoneb) RT SOL 3 ML NEBU INH ×6 (02:17→23:22)
[2025-02-28] MEDS: oxyCODONE/APAP 5/325 TABLET 2 TAB PO ×3 (05:22→18:02)
[2025-02-28] MEDS: PROMETHAZINE HCL SYRUP 6.25 MG/5 ML UDC PO ×3 (05:22→17:13)
[2025-02-28] MEDS: guaiFENesin/DM 10 ML UDC PO ×3 (05:22→17:13)
[2025-02-28 06:16] LABS: Basophils % (Auto) 0 % (0-2.5); Eosinophils # (Auto) 0.3 Thou/mm3 (0.0-0.5); Eosinophils % (Auto) 4 % (0-10); Hematocrit 28.3 % (36.0-46.0); Hemoglobin 9.6 g/dL (12.0-16.0); Immature Granulocytes % (Auto) 7 % (0-0); Immature Granulocytes Auto 0.62 Thou/mm3 (0.00-0.00); Lymphocytes # (Auto) 2.1 Thou/mm3 (1.0-4.8); Lymphocytes % (Auto) 23 % (10-50); Mean Corpuscular HGB Conc 33.9 g/dl (31.0-37.0); Mean Corpuscular Volume 86 fL (80-100); Monocytes # (Auto) 0.9 Thou/mm3 (0.0-0.8); Monocytes % (Auto) 10 % (0-12); Neutrophils # (Auto) 5.1 Thou/mm3 (1.8-7.7); Neutrophils % (Auto) 56 % (37-80); Nucleated Red Blood Cell % 0 /100 WBC (0); Platelet Count 302 Thou/mm3 (140-440); RDW Standard Deviation 50.1 fL (36.4-46.3); Red Blood Count 3.31 Miln/mm3 (4.00-5.20); White Blood Count 9.1 Thou/mm3 (3.6-11.0)
[2025-02-28 06:25] LABS: Anion Gap 5 (7-16); BUN/Creatinine Ratio 15 Ratio (12-20); Blood Urea Nitrogen 9 mg/dL (9-23); Calcium 7.7 mg/dL (8.3-10.6); Carbon Dioxide 26.3 mMol/L (20.0-31.0); Chloride 103 mMol/L (98-107); Creatinine (Component) 0.6 mg/dL (0.6-1.3); Estimated Creatinine Clearance 64.6 mL/min (>60); Glucose 88 mg/dL (74-106); Osmolality,Calculated 265 (275-295); Potassium 4.1 mMol/L (3.4-5.1); Sodium 134 mMol/L (136-145); eGFR > 60 See Note
[2025-02-28 07:00] LABS: Interpretation NEGATIVE
[2025-02-28] MEDS: CEFEPIME INJ 2 GM in SODIUM CHLORIDE 0.9% (Popper) 50 ML IV ×2 (09:34→20:35)
[2025-02-28] MEDS: CHOLECALCIFEROL (Vitamin D3) 1,000 IU TABLET 1000 IU PO (09:34)
[2025-02-28] MEDS: CALCIUM CARBONATE 600 MG TABLET PO (09:34)
[2025-02-28] MEDS: AZITHROMYCIN 250 MG TABLET 500 MG PO (09:34)
[2025-02-28] MEDS: PANTOPRAZOLE 40 MG TABLET PO (09:34)
[2025-02-28] MEDS: ENOXAPARIN SOD INJ 40 MG/0.4 ML SYRINGE SC (09:34)
[2025-02-28] MEDS: VANCOMYCIN/NS 750 MG IVPB 750 MG/150 ML BAG 120 MG IV ×2 (09:45→22:15)
--- NOTE | 2025-02-28 12:00 | ESPR_ITS ---
<Statement entered by Uzma Matute MD - 03/09/25 15:41> I reviewed above note and agree with findings and plans. I have also personally examined the patient with medicine team and went over assessment and plan with medical team including internal control analyst and resident physician. <Statement entered by Ruddy Olivarez MD - 03/09/25 08:32> Senior Resident Attestation: I supervised/discussed management plan with internal control analyst physician Dr. Washington, and was involved in the care of this patient. I personally saw and examined the patient and discussed the assessment and plan with the entire medicine team, including my attending. I agree with the assessment and plan as documented. Patient's care was discussed with attending physician, Dr. Matute. Ruddy Olivarez MD PGY-2. Documentation for date of: 02/28/25 Subjective Subjective Interval history: Patient is seen and examined at bedside No acute overnight events. Denies any other complaints Vitals are stable and patient is on room air saturating around 93% On physical examination, bilateral mild wheeze heard As patient is back to her baseline and recovered well, will discharge Exam Vital Signs Temp Pulse Resp BP Pulse Ox O2 Del Method O2 Flow Rate 97.8 F 94 18 136/61 H 96 Nasal Cannula 1 03/04/25 15:48 03/04/25 16:00 03/04/25 15:48 03/04/25 15:48 03/04/25 15:48 03/04/25 15:48 03/04/25 15:48 FiO2 40 03/03/25 16:00 Narrative Exam General: Awake. HEENT: Normocephalic, atraumatic, mucous membranes moist. Heart: Regular rate and rhythm, no murmurs. Lungs: Clear to auscultation with no wheezing or crackles. Abdomen: Soft, nondistended, nontender, positive bowel sounds. ?No guarding or rebound tenderness. Neurologic: Alert and oriented x3, no gross neurological deficit, and patient able to move all 4 extremities. Extremities: No edema. Skin: No rash or ecchymoses. Objective Labs 03/04/25 07:38 03/04/25 07:38 ABG Interpretation ABG results: 02/24/25 00:25 ABG pH 7.38 ABG pCO2 35 ABG pO2 87 ABG HCO3 20 ABG O2 Saturation 97 ABG Base Excess -4 L Quality Measures Quality Measures VTE prophylaxis Advance care planning discussed with:: patient Assessment & Plan Assessment Current Active Medications: Generic Name Dose Route Start Last Admin Trade Name Freq PRN Reason Stop Dose Admin Acetaminophen 650 mg 02/26/25 09:13 Acetaminophen 325 Mg Tablet PO 03/25/25 17:23 Q6H PRN Fever >100.3 Albuterol/Ipratropium 3 ml 02/24/25 03:00 03/03/25 13:56 Albuterol/Ipratropium (Duoneb) Rt Helen 3 Ml Nebu INH 03/26/25 02:59 3 ml Q4HRRT MARISOL Administration Albuterol/Ipratropium 3 ml 02/23/25 23:37 Albuterol/Ipratropium (Duoneb) Rt Helen 3 Ml Nebu INH 03/25/25 23:36 Q2HR PRN SHORTNESS OF BREATH OR WHEEZE Amlodipine Besylate 5 mg 03/01/25 09:00 03/03/25 08:22 Amlodipine Besylate 5 Mg Tablet PO 03/31/25 08:59 5 mg QDAY MARISOL Administration Calcium Carbonate 600 mg 02/24/25 05:10 03/03/25 08:22 Calcium Carbonate 600 Mg Tablet PO 03/26/25 05:09 600 mg QDAY MARISOL Administration Docusate Sodium 100 mg 02/23/25 17:24 Docusate Sod 100 Mg Capsule PO 03/25/25 17:23 QDAY PRN CONSTIPATION Protocol Enoxaparin Sodium 40 mg 02/27/25 09:00 03/03/25 08:22 Enoxaparin Sod Inj 40 Mg/0.4 Ml Syringe SC 03/10/25 08:59 40 mg QDAY MARISOL Administration Guaifenesin/Dextromethorphan 10 ml 02/26/25 00:00 03/03/25 11:53 Guaifenesin/Dm 10 Ml Udc PO 03/28/25 00:00 10 ml Q6HR MARISOL Administration Vancomycin/Sodium Chloride 750 mg in 150 mls @ 120 mls/hr 02/27/25 11:15 03/03/25 12:15 Vancomycin/Ns 750 Mg Ivpb IV 03/06/25 11:14 Infused QDAY@1000,2200 MARISOL Infusion Protocol Ondansetron HCl 4 mg 04/20/25 17:24 Ondansetron Inj 2 Mg/Ml Inj 2 Ml IV 03/25/25 17:23 Q6H PRN NAUSEA OR VOMITING Protocol Pantoprazole Sodium 40 mg 02/24/25 09:00 03/03/25 08:22 Pantoprazole 40 Mg Tablet PO 03/26/25 08:59 40 mg QDAY MARISOL Administration Pharmacy Consult 1 each 02/24/25 10:45 Vancomycin Pharmacy To Dose 1 Each Each IV 03/26/25 10:44 QDAY PRN CONSULT Promethazine HCl 6.25 mg 02/26/25 00:00 03/03/25 11:53 Promethazine Hcl Syrup 6.25 Mg/5 Ml Udc PO 03/28/25 00:00 6.25 mg Q6HR MARISOL Administration Tizanidine HCl 4 mg 02/23/25 21:00 03/02/25 20:25 Tizanidine Hcl 2 Mg Tablet PO 03/25/25 20:59 4 mg HS MARISOL Administration Vitamin D 1,000 iu 02/25/25 18:37 03/03/25 08:22 Cholecalciferol (Vitamin D3) 1,000 Iu Tablet PO 03/27/25 18:36 1,000 iu QDAY MARISOL Administration Plan A 79-year-old female with significant past medical history of hypertension, chronic back pain on opioids presented to the hospital with chief complaints of cough and admitted in the hospital for acute hypoxic respiratory failure secondary to right lung pneumonia. Pending insurance authorization for SNF placement. # Acute hypoxic respiratory failure- resolved # 2/2 Right lung pneumonia # Likely community-acquired pneumonia # Leukocytosis, resolved - Patient presented to the hospital with chief complaints of cough with expectoration associated with shortness of breath since 2 weeks - Denies fever, nausea, vomitings - Vitals at the time of admission are significant for SpO2 95% with 6 L oxygen - Labs are significant for WBC 19, Hb 11.8 - Chest x-ray showed patchy infiltrate in right upper lobe - Tested negative for COVID, influenza A and B - Blood cultures on 02/23/2025, blood culture came back positive for Streptococcus pneumonia and other culture is negative - Blood cultures on 02/24/2025 came back negative after 48 hours - Sputum culture and Gram stain came back negative - Cocci IgM and IgG were ordered -IgM came back negative twice - JUAN M and ANCA titres are ordered, pending Plan -Patient on azithromycin, cefepime, and vancomycin. - Will continue to wean off oxygen as able. - Chest physiotherapy and incentive spirometry - Dextromethorphan every 6 hourly - DuoNebs every 4th hourly - Pending insurance authorization for SNF placement. 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 - Will continue to monitor sodium levels and correct if needed # VERONICA, resolved # Hypokalemia, resolved # Hyponatremia, resolved # Hypomagnesemia, resolved # Chronic anemia - Hemoglobin is 11.1 on 02/2024 - Hemoglobin at the time of admission is 11.8 - Likely nutritional - Recommended to follow-up in outpatient basis for further evaluation # Hypocalcemia, secondary to vitamin D deficiency - Corrected calcium at the time of admission is 8.2 - Vitamin D levels 4.4, supplemented with calcitriol 50,000 IU X1 - On calcium supplements # History of hypertension - Patient is using amlodipine 5 Mg p.o. daily and benazepril 40 Mg p.o. daily at home - Blood pressures are within normal limits since the hospital admission, will withhold antihypertensives for now - Will continue to monitor blood pressures and add medications as needed # History of osteoporosis # History of chronic back pain - Patient is using alendronate and [place] as needed for the back pain - Resumed [place] 5 every 8 hourly as needed - Resumed home tizanidine - Home med rec is ordered Hospital Maintenance: Dispo: Med/tele DVT ppx: Lovenox GI ppx: Protonix Diet: Regular IV lines: Peripheral Code status: Full code Patient plan of care was discussed with the attending physician, Dr. Matute and senior resident Dr. Sher Washington, PGY1
--- NOTE | 2025-02-28 14:00 | PC.SS ---
SS follow up note; met with patient at bedside to discuss discharge plan, Patient wishes to discharge to [facility]. SS submitted inquiry. SS contacted Yennifer from [facility] and she is agreeable to accept patient and informed SS she would start authorization.
--- NOTE | 2025-02-28 17:37 | PD.RESDS ---
Planned Discharge Date 02/28/25 DS: Providers Provider Date of admission: 02/23/25 17:22 Primary care physician: Eddie Chauhan MD Admitting Provider: Moriah Prince DO Attending Provider on Admission: Uzma Matute MD Consults: 02/23/25 17:37 Referral Physical Therapy Routine Comment: Physician Instructions: Attending Provider on DC: Jose Luis Washington MD Discharging Provider: Jose Luis Washington MD Hospital Course Hospital Course Hospital course: Patient is seen and examined at bedside No acute overnight events. Reported that he is doing better but still had some cough Patient vitals are stable and is started on nasal cannula, 4 L/min Will continue antibiotics for now If the patient continues to do well, will discharge tomorrow on oral antibiotics. Time Spent with Patient Time attestation: Total time spent providing and/or coordinating discharge services: Exam Vital Signs Temp Pulse Resp BP Pulse Ox O2 Del Method O2 Flow Rate 97.0 F 111 H 18 154/90 H 100 Nasal Cannula 2 02/28/25 12:00 02/28/25 15:05 02/28/25 15:05 02/28/25 12:00 02/28/25 15:05 02/28/25 12:00 02/28/25 12:00 FiO2 40 02/27/25 07:35 Discharge Plan Plan Patient Disposition: Xfer [facility]illed [facility] Fac (SNF) Patient condition on transfer: Stable Care Plan Goals: -Follow-up with PCP within 1 week of discharge. If you do not have appointment, please follow-up with the [facility] with Dr. Washington. Call [phone] to make an appointment. - Recommended to continue Augmentin 875-125mg twice daily till 03/09/2025 and Azithromycin 500mg once daily till 03/09/2025 - Rescue albuterol as needed - Recommended to stop Benazepril - Continue rest of the home medications - Return to ED if symptoms persist or return Prescriptions/Referrals Prescriptions/Med Rec: New amoxicillin-pot clavulanate 875-125 mg tablet 1 tab PO BID 10 Days Qty: 20 0RF azithromycin 500 mg tablet 500 mg PO QDAY 10 Days Qty: 10 0RF albuterol sulfate 90 mcg/actuation HFA aerosol inhaler 1 inh inhalation Q6H PRN (Reason: shortness of breath or wheezing) Qty: 8.5 0RF Continued lorazepam 0.5 MG tablet 0.5 mg PO TID PRN (Reason: anxiety) Qty: 0 omeprazole 20 MG capsule,delayed release(DR/EC) 20 mg PO QDAY Qty: 0 Rx Instructions: take one capsule by mouth every morning 30 minutes before meals. amlodipine [Norvasc] 10 MG tablet 10 mg PO QDAY Qty: 0 tizanidine [Zanaflex] 4 MG tablet 4 mg PO BID Qty: 0 alendronate 70 mg Tablet 70 mg PO QWEEK promethazine-codeine 6.25-10 mg/5 mL syrup 5 ml PO QHSPRN PRN (Reason: cough) Qty: 118 0RF guaifenesin 200 mg tablet 200 mg PO QID PRN (Reason: congestion) Qty: 20 0RF ondansetron 4 mg tablet,disintegrating 4 mg PO Q8H PRN (Reason: nausea and vomiting) Qty: 14 0RF hydrocodone-acetaminophen 5-325 mg tablet 1 tab PO Q8H MDD 3 tabs PRN (Reason: pain) Qty: 20 0RF duloxetine 20 mg capsule,delayed release(DR/EC) 20 mg PO DAILY Patient Comments: TAKE ONE CAPSULE BY MOUTH EVERY DAY FOR NERVE PAIN Discontinued benazepril [Lotensin] 40 MG tablet 40 mg PO QDAY Qty: 0 hydrocodone-acetaminophen [Cyril] 7.5-325 mg Tablet 1 tab PO [id number] PRN (Reason: Pain) dexamethasone 6 mg tablet 6 mg PO QDAY Qty: 7 0RF Referrals: Eddie Chauhan MD [Primary Care Provider] - Patient/Caregiver Discharge Instructions Education Materials: What Is Pneumonia?, Treating Pneumonia, ED Cough Chronic Uncertain Cause Adult Print Language: Occitan Stand Alone Forms: [facility] Award Info., Patient Portal Info Letter Discharge Order Discharge Orders: Discharge (Routine); Ordered 02/28/25 Ordered By: Jose Luis Washington
[2025-02-28] MEDS: tiZANidine HCL 2 MG TABLET 4 MG PO (20:43)
[2025-03-01] VITALS (15 sets, daily range): BP systolic 126–151; BP diastolic 62–81; PULSE 79–103; RESP 16–99; TEMP 36.1–36.5; O2SAT 92–100
[2025-03-01] MEDS: guaiFENesin/DM 10 ML UDC PO ×5 (00:23→23:05)
[2025-03-01] MEDS: PROMETHAZINE HCL SYRUP 6.25 MG/5 ML UDC PO ×5 (00:23→23:05)
[2025-03-01] MEDS: oxyCODONE/APAP 5/325 TABLET 2 TAB PO ×4 (00:26→20:14)
[2025-03-01] MEDS: ALBUTEROL/IPRATROPIUM (Duoneb) RT SOL 3 ML NEBU INH ×6 (03:05→23:13)
[2025-03-01 06:14] LABS: Basophils # (Auto) 0.1 Thou/mm3 (0.0-0.2); Basophils % (Auto) 1 % (0-2.5); Eosinophils # (Auto) 0.4 Thou/mm3 (0.0-0.5); Eosinophils % (Auto) 5 % (0-10); Hemoglobin 9.4 g/dL (12.0-16.0); Immature Granulocytes % (Auto) 7 % (0-0); Immature Granulocytes Auto 0.69 Thou/mm3 (0.00-0.00); Lymphocytes # (Auto) 2.2 Thou/mm3 (1.0-4.8); Lymphocytes % (Auto) 23 % (10-50); Mean Corpuscular HGB Conc 33.6 g/dl (31.0-37.0); Mean Corpuscular Hemoglobin 29.4 pg (25.0-35.0); Mean Corpuscular Volume 88 fL (80-100); Monocytes # (Auto) 0.8 Thou/mm3 (0.0-0.8); Monocytes % (Auto) 9 % (0-12); Neutrophils # (Auto) 5.4 Thou/mm3 (1.8-7.7); Neutrophils % (Auto) 57 % (37-80); Nucleated Red Blood Cell % 0 /100 WBC (0); Platelet Count 337 Thou/mm3 (140-440); RDW Standard Deviation 51.5 fL (36.4-46.3); White Blood Count 9.5 Thou/mm3 (3.6-11.0)
[2025-03-01 06:24] LABS: Anion Gap 8 (7-16); BUN/Creatinine Ratio 18 Ratio (12-20); Blood Urea Nitrogen 9 mg/dL (9-23); Calcium 7.8 mg/dL (8.3-10.6); Chloride 98 mMol/L (98-107); Creatinine (Component) 0.5 mg/dL (0.6-1.3); Estimated Creatinine Clearance 77.5 mL/min (>60); Glucose 91 mg/dL (74-106); Osmolality,Calculated 259 (275-295); Potassium 3.9 mMol/L (3.4-5.1); Sodium 130 mMol/L (136-145); eGFR > 60 See Note
[2025-03-01] MEDS: AZITHROMYCIN 250 MG TABLET 500 MG PO (08:56)
[2025-03-01] MEDS: CALCIUM CARBONATE 600 MG TABLET PO (08:56)
[2025-03-01] MEDS: amLODIPine BESYLATE 5 MG TABLET PO (08:56)
[2025-03-01] MEDS: CHOLECALCIFEROL (Vitamin D3) 1,000 IU TABLET 1000 IU PO (08:56)
[2025-03-01] MEDS: CEFEPIME INJ 2 GM in SODIUM CHLORIDE 0.9% (Popper) 50 ML IV ×2 (08:56→20:13)
[2025-03-01] MEDS: PANTOPRAZOLE 40 MG TABLET PO (08:56)
[2025-03-01] MEDS: ENOXAPARIN SOD INJ 40 MG/0.4 ML SYRINGE SC (09:07)
[2025-03-01] MEDS: VANCOMYCIN/NS 750 MG IVPB 750 MG/150 ML BAG 120 MG IV ×2 (10:56→22:54)
--- NOTE | 2025-03-01 19:20 | ESPR_ITS ---
<Statement entered by Uzma Matute MD - 03/05/25 12:10> I reviewed above note and agree with findings and plans. I have also personally examined the patient with medicine team and went over assessment and plan with medical team including internet specialist and resident physician. <Statement entered by Ruddy Olivarez MD - 03/03/25 09:14> Senior Resident Attestation: I supervised/discussed management plan with internet specialist physician Dr. Washington, and was involved in the care of this patient. I personally saw and examined the patient and discussed the assessment and plan with the entire medicine team, including my attending. I agree with the assessment and plan as documented. Patient's care was discussed with attending physician, Dr. Matute. Ruddy Olivarez MD PGY-2. Documentation for date of: 03/01/25 Subjective Subjective Interval history: Patient is seen and examined at bedside No acute overnight events. Denies any other complaints Vitals are stable. Labs significant for mild hyponatremia Patient is pending authorization for SNF placement, likely to be approved on coming Monday Exam Vital Signs Temp Pulse Resp BP Pulse Ox O2 Del Method O2 Flow Rate 97 F 95 18 133/70 H 99 Room Air 2 03/01/25 16:00 03/01/25 16:00 03/01/25 16:00 03/01/25 16:00 03/01/25 16:00 03/01/25 16:00 02/28/25 16:00 FiO2 40 02/27/25 07:35 Narrative Exam You justGeneral: Awake. HEENT: Normocephalic, atraumatic, mucous membranes moist. Heart: Regular rate and rhythm, no murmurs. Lungs: Clear to auscultation with no wheezing or crackles. Abdomen: Soft, nondistended, nontender, positive bowel sounds. ?No guarding or rebound tenderness. Neurologic: Alert and oriented x3, no gross neurological deficit, and patient able to move all 4 extremities. Extremities: No edema. Skin: No rash or ecchymoses. Objective Labs 03/01/25 04:49 03/01/25 04:49 Labs: Laboratory Results - last 24 hr 03/01/25 04:49 WBC 9.5 RBC 3.20 L Hgb 9.4 L Hct 28.0 L MCV 88 MCH 29.4 MCHC 33.6 RDW Std Deviation 51.5 H Plt Count 337 D Neut % (Auto) 57 Lymph % (Auto) 23 [place] % (Auto) 9 Eos % (Auto) 5 Baso % (Auto) 1 Neut # (Auto) 5.4 Lymph # (Auto) 2.2 [place] # (Auto) 0.8 Eos # (Auto) 0.4 Baso # (Auto) 0.1 Immature Gran # (Auto) 0.69 H Absolute Nucleated RBC 0.00 Immature Gran % 7 H Nucleated RBC % 0 Sodium 130 L Potassium 3.9 Chloride 98 Carbon Dioxide 24.0 Anion Gap 8 BUN 9 Creatinine 0.5 L Estim Creat Clear Calc 77.5 eGFR > 60 BUN/Creatinine Ratio 18 Glucose 91 Calculated Osmolality 259 L Calcium 7.8 L ABG Interpretation ABG results: 02/24/25 00:25 ABG pH 7.38 ABG pCO2 35 ABG pO2 87 ABG HCO3 20 ABG O2 Saturation 97 ABG Base Excess -4 L Quality Measures Quality Measures none Advance care planning discussed with:: patient Assessment & Plan Assessment Current Active Medications: Generic Name Dose Route Start Last Admin Trade Name Freq PRN Reason Stop Dose Admin Acetaminophen 650 mg 02/26/25 09:13 Acetaminophen 325 Mg Tablet PO 03/25/25 17:23 Q6H PRN Fever >100.3 Albuterol/Ipratropium 3 ml 02/24/25 03:00 03/01/25 19:19 Albuterol/Ipratropium (Duoneb) Rt Helen 3 Ml Nebu INH 03/26/25 02:59 3 ml Q4HRRT MARISOL Administration Albuterol/Ipratropium 3 ml 02/23/25 23:37 Albuterol/Ipratropium (Duoneb) Rt Helen 3 Ml Nebu INH 03/25/25 23:36 Q2HR PRN SHORTNESS OF BREATH OR WHEEZE Amlodipine Besylate 5 mg 03/01/25 09:00 03/01/25 08:56 Amlodipine Besylate 5 Mg Tablet PO 03/31/25 08:59 5 mg QDAY MARISOL Administration Azithromycin 500 mg 02/23/25 17:45 03/01/25 08:56 Azithromycin 250 Mg Tablet PO 03/02/25 17:44 500 mg QDAY MARISOL Administration Calcium Carbonate 600 mg 02/24/25 05:10 03/01/25 08:56 Calcium Carbonate 600 Mg Tablet PO 03/26/25 05:09 600 mg QDAY MARISOL Administration Docusate Sodium 100 mg 02/23/25 17:24 Docusate Sod 100 Mg Capsule PO 03/25/25 17:23 QDAY PRN CONSTIPATION Protocol Enoxaparin Sodium 40 mg 02/27/25 09:00 03/01/25 09:07 Enoxaparin Sod Inj 40 Mg/0.4 Ml Syringe SC 03/10/25 08:59 40 mg QDAY MARISOL Administration Guaifenesin/Dextromethorphan 10 ml 02/26/25 00:00 03/01/25 18:05 Guaifenesin/Dm 10 Ml Udc PO 03/28/25 00:00 10 ml Q6HR MARISOL Administration Cefepime HCl 2 gm/ Sodium 50 mls @ 100 mls/hr 02/24/25 10:45 03/01/25 08:56 Chloride IV 03/03/25 10:44 100 mls/hr Q12HR MARISOL Administration Vancomycin/Sodium Chloride 750 mg in 150 mls @ 120 mls/hr 02/27/25 11:15 03/01/25 10:56 Vancomycin/Ns 750 Mg Ivpb IV 03/06/25 11:14 120 mls/hr QDAY@1000,2200 MARISOL Administration Ondansetron HCl 4 mg 02/23/25 17:24 Ondansetron Inj 2 Mg/Ml Inj 2 Ml IV 03/25/25 17:23 Q6H PRN NAUSEA OR VOMITING Protocol Oxycodone/Acetaminophen 2 tab 02/26/25 21:30 03/01/25 13:52 Oxycodone/Apap 5/325 Tablet PO 03/03/25 11:25 2 tab Q6HR PRN Administration Pain 7-10 Pantoprazole Sodium 40 mg 02/24/25 09:00 03/01/25 08:56 Pantoprazole 40 Mg Tablet PO 03/26/25 08:59 40 mg QDAY MARISOL Administration Pharmacy Consult 1 each 02/24/25 10:45 Vancomycin Pharmacy To Dose 1 Each Each IV 03/26/25 10:44 QDAY PRN CONSULT Promethazine HCl 6.25 mg 02/26/25 00:00 03/01/25 18:05 Promethazine Hcl Syrup 6.25 Mg/5 Ml Udc PO 03/28/25 00:00 6.25 mg Q6HR MARISOL Administration Tizanidine HCl 4 mg 02/23/25 21:00 02/28/25 20:43 Tizanidine Hcl 2 Mg Tablet PO 03/25/25 20:59 4 mg HS MARISOL Administration Vitamin D 1,000 iu 02/25/25 18:37 03/01/25 08:56 Cholecalciferol (Vitamin D3) 1,000 Iu Tablet PO 03/27/25 18:36 1,000 iu QDAY MARISOL Administration Plan A 79-year-old female with significant past medical history of hypertension, chronic back pain on opioids presented to the hospital with chief complaints of cough and admitted in the hospital for acute hypoxic respiratory failure secondary to right lung pneumonia # Acute hypoxic respiratory failure, resolved # 2/2 Right lung pneumonia # Likely community-acquired pneumonia # Leukocytosis, resolved - Patient presented to the hospital with chief complaints of cough with expectoration associated with shortness of breath since 2 weeks - Denies fever, nausea, vomitings - Vitals at the time of admission are significant for SpO2 95% with 6 L oxygen - Labs are significant for WBC 19, Hb 11.8 - Chest x-ray showed patchy infiltrate in right upper lobe - Tested negative for COVID, influenza A and B - Blood cultures on 02/23/2025, blood culture came back positive for Streptococcus pneumonia and other culture is negative - Blood cultures on 02/24/2025 came back negative after 48 hours - Sputum culture and Gram stain came back negative - Cocci IgM and IgG were ordered -IgM came back negative twice - JUAN M and ANCA titres are ordered, pending Plan - Started on ceftriaxone and azithromycin [02/23/2025] - Ceftriaxone was stopped on 02/24/2025 and patient was started on cefepime and vancomycin [02/24-present] - Oxygen as needed - Chest physiotherapy and incentive spirometry - Dextromethorphan every 6 hourly - DuoNebs every 4th hourly # Mild hyponatremia - Sodium as of 03/01/2025 is 130 - 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 - Will continue to monitor sodium levels and correct if needed # VERONICA, resolved Likely prerenal in the setting of pneumonia - Baseline creatinine is 0.7 in 02/2024 - At the time of admission, BUN is 39, creatinine is 1.6 --- improved to 0.5 Plan - Avoid nephrotoxic medications and renally dose medications - Will continue to monitor renal functions # Hypokalemia, resolved # Hyponatremia, resolved # Hypomagnesemia, resolved - Low sodium could be due to the ongoing lung pathology - Hypokalemia and hypomagnesemia could be due to poor oral intake in the setting of acute illness - At the time of admission, potassium is 3.1, magnesium is 1.4 -->came back to normal limits Plan - Will continue to monitor electrolytes and replete accordingly # Chronic anemia - Hemoglobin is 11.1 on 02/2024 - Hemoglobin at the time of admission is 11.8 - Likely nutritional - Recommended to follow-up in outpatient basis for further evaluation # Hypocalcemia, secondary to vitamin D deficiency - Corrected calcium at the time of admission is 8.2 - Vitamin D levels are 4.4, supplemented with calcitriol 50,000 IU X1 - Started on calcium supplements # History of hypertension - Patient is using amlodipine 10 Mg p.o. daily and benazepril 40 Mg p.o. daily at home - Blood pressures are within normal limits since the hospital admission, will withhold antihypertensives for now - Will continue to monitor blood pressures and add medications as needed # History of osteoporosis # History of chronic back pain - Patient is using alendronate and [place] as needed for the back pain - Resumed [place] 5 every 8 hourly as needed - Resumed home tizanidine - Home med rec is ordered Hospital Maintenance: Dispo: Med/tele DVT ppx: Lovenox GI ppx: Protonix Diet: Regular IV lines: Peripheral Code status: Full code Patient plan of care was discussed with the attending physician, Dr. Matute and senior resident Dr. Sher Washington, PGY1
--- NOTE | 2025-03-01 19:25 | ESPR_ITS ---
<Statement entered by Uzma Matute MD - 03/05/25 12:10> I reviewed above note and agree with findings and plans. I have also personally examined the patient with medicine team and went over assessment and plan with medical team including international project manager and resident physician. <Statement entered by Bigg Reyes MD - 03/02/25 10:07> Patient seen and assessed at bedside. Patient pressure doing much better now. Patient is interested in going to SNF and getting rehab. Case discussed with team. Bigg Reyes MD PGY3. Documentation for date of: 03/01/25 Subjective Subjective Interval history: Patient is seen and examined at bedside No acute overnight events. Patient is doing well Patient is saturating well on room air. Labs did not show any significant abnormality except for mild hyponatremia Will discharge today to SNF Exam Vital Signs Temp Pulse Resp BP Pulse Ox O2 Del Method O2 Flow Rate 97 F 95 18 133/70 H 99 Room Air 2 03/01/25 16:00 03/01/25 16:00 03/01/25 16:00 03/01/25 16:00 03/01/25 16:00 03/01/25 16:00 02/28/25 16:00 FiO2 40 02/27/25 07:35 Narrative Exam General: Awake. HEENT: Normocephalic, atraumatic, mucous membranes moist. Heart: Regular rate and rhythm, no murmurs. Lungs: Clear to auscultation with no wheezing or crackles. Abdomen: Soft, nondistended, nontender, positive bowel sounds. ?No guarding or rebound tenderness. Neurologic: Alert and oriented x3, no gross neurological deficit, and patient able to move all 4 extremities. Extremities: No edema. Skin: No rash or ecchymoses. Objective Labs 03/01/25 04:49 03/01/25 04:49 Labs: Laboratory Results - last 24 hr 03/01/25 04:49 WBC 9.5 RBC 3.20 L Hgb 9.4 L Hct 28.0 L MCV 88 MCH 29.4 MCHC 33.6 RDW Std Deviation 51.5 H Plt Count 337 D Neut % (Auto) 57 Lymph % (Auto) 23 [place] % (Auto) 9 Eos % (Auto) 5 Baso % (Auto) 1 Neut # (Auto) 5.4 Lymph # (Auto) 2.2 [place] # (Auto) 0.8 Eos # (Auto) 0.4 Baso # (Auto) 0.1 Immature Gran # (Auto) 0.69 H Absolute Nucleated RBC 0.00 Immature Gran % 7 H Nucleated RBC % 0 Sodium 130 L Potassium 3.9 Chloride 98 Carbon Dioxide 24.0 Anion Gap 8 BUN 9 Creatinine 0.5 L Estim Creat Clear Calc 77.5 eGFR > 60 BUN/Creatinine Ratio 18 Glucose 91 Calculated Osmolality 259 L Calcium 7.8 L ABG Interpretation ABG results: 02/24/25 00:25 ABG pH 7.38 ABG pCO2 35 ABG pO2 87 ABG HCO3 20 ABG O2 Saturation 97 ABG Base Excess -4 L Quality Measures Quality Measures none Advance care planning discussed with:: patient Assessment & Plan Assessment Current Active Medications: Generic Name Dose Route Start Last Admin Trade Name Freq PRN Reason Stop Dose Admin Acetaminophen 650 mg 02/26/25 09:13 Acetaminophen 325 Mg Tablet PO 03/25/25 17:23 Q6H PRN Fever >100.3 Albuterol/Ipratropium 3 ml 02/24/25 03:00 03/01/25 19:19 Albuterol/Ipratropium (Duoneb) Rt Helen 3 Ml Nebu INH 03/26/25 02:59 3 ml Q4HRRT MARISOL Administration Albuterol/Ipratropium 3 ml 02/23/25 23:37 Albuterol/Ipratropium (Duoneb) Rt Helen 3 Ml Nebu INH 03/25/25 23:36 Q2HR PRN SHORTNESS OF BREATH OR WHEEZE Amlodipine Besylate 5 mg 03/01/25 09:00 03/01/25 08:56 Amlodipine Besylate 5 Mg Tablet PO 03/31/25 08:59 5 mg QDAY MARISOL Administration Azithromycin 500 mg 02/23/25 17:45 03/01/25 08:56 Azithromycin 250 Mg Tablet PO 03/02/25 17:44 500 mg QDAY MARISOL Administration Calcium Carbonate 600 mg 02/24/25 05:10 03/01/25 08:56 Calcium Carbonate 600 Mg Tablet PO 03/26/25 05:09 600 mg QDAY MARISOL Administration Docusate Sodium 100 mg 02/23/25 17:24 Docusate Sod 100 Mg Capsule PO 03/25/25 17:23 QDAY PRN CONSTIPATION Protocol Enoxaparin Sodium 40 mg 02/27/25 09:00 03/01/25 09:07 Enoxaparin Sod Inj 40 Mg/0.4 Ml Syringe SC 03/10/25 08:59 40 mg QDAY MARISOL Administration Guaifenesin/Dextromethorphan 10 ml 02/26/25 00:00 03/01/25 18:05 Guaifenesin/Dm 10 Ml Udc PO 03/28/25 00:00 10 ml Q6HR MARISOL Administration Cefepime HCl 2 gm/ Sodium 50 mls @ 100 mls/hr 02/24/25 10:45 03/01/25 08:56 Chloride IV 03/03/25 10:44 100 mls/hr Q12HR MARISOL Administration Vancomycin/Sodium Chloride 750 mg in 150 mls @ 120 mls/hr 02/27/25 11:15 03/01/25 10:56 Vancomycin/Ns 750 Mg Ivpb IV 03/06/25 11:14 120 mls/hr QDAY@1000,2200 MARISOL Administration Ondansetron HCl 4 mg 02/23/25 17:24 Ondansetron Inj 2 Mg/Ml Inj 2 Ml IV 03/25/25 17:23 Q6H PRN NAUSEA OR VOMITING Protocol Oxycodone/Acetaminophen 2 tab 02/26/25 21:30 03/01/25 13:52 Oxycodone/Apap 5/325 Tablet PO 03/03/25 11:25 2 tab Q6HR PRN Administration Pain 7-10 Pantoprazole Sodium 40 mg 02/24/25 09:00 03/01/25 08:56 Pantoprazole 40 Mg Tablet PO 03/26/25 08:59 40 mg QDAY MARISOL Administration Pharmacy Consult 1 each 02/24/25 10:45 Vancomycin Pharmacy To Dose 1 Each Each IV 03/26/25 10:44 QDAY PRN CONSULT Promethazine HCl 6.25 mg 02/26/25 00:00 03/01/25 18:05 Promethazine Hcl Syrup 6.25 Mg/5 Ml Udc PO 03/28/25 00:00 6.25 mg Q6HR MARISOL Administration Tizanidine HCl 4 mg 02/23/25 21:00 02/28/25 20:43 Tizanidine Hcl 2 Mg Tablet PO 03/25/25 20:59 4 mg HS MARISOL Administration Vitamin D 1,000 iu 02/25/25 18:37 03/01/25 08:56 Cholecalciferol (Vitamin D3) 1,000 Iu Tablet PO 03/27/25 18:36 1,000 iu QDAY MARISOL Administration Plan A 79-year-old female with significant past medical history of hypertension, chronic back pain on opioids presented to the hospital with chief complaints of cough and admitted in the hospital for acute hypoxic respiratory failure secondary to right lung pneumonia # Acute hypoxic respiratory failure, resolved # 2/2 Right lung pneumonia # Likely community-acquired pneumonia # Leukocytosis, resolved - Patient presented to the hospital with chief complaints of cough with expectoration associated with shortness of breath since 2 weeks - Denies fever, nausea, vomitings - Vitals at the time of admission are significant for SpO2 95% with 6 L oxygen - Labs are significant for WBC 19, Hb 11.8 - Chest x-ray showed patchy infiltrate in right upper lobe - Tested negative for COVID, influenza A and B - Blood cultures on 02/23/2025, blood culture came back positive for Streptococcus pneumonia and other culture is negative - Blood cultures on 02/24/2025 came back negative after 48 hours - Sputum culture and Gram stain came back negative - Cocci IgM and IgG were ordered -IgM came back negative twice - JUAN M and ANCA titres are ordered, pending Plan - Started on ceftriaxone and azithromycin [02/23/2025] - Ceftriaxone was stopped on 02/24/2025 and patient was started on cefepime and vancomycin [02/24-present] - Oxygen as needed - Chest physiotherapy and incentive spirometry - Dextromethorphan every 6 hourly - DuoNebs every 4th hourly 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 - Will continue to monitor sodium levels and correct if needed # VERONICA, resolved Likely prerenal in the setting of pneumonia - Baseline creatinine is 0.7 in 02/2024 - At the time of admission, BUN is 39, creatinine is 1.6 --- improved to 0.5 Plan - Avoid nephrotoxic medications and renally dose medications - Will continue to monitor renal functions # Hypokalemia, resolved # Hyponatremia, resolved # Hypomagnesemia, resolved - Low sodium could be due to the ongoing lung pathology - Hypokalemia and hypomagnesemia could be due to poor oral intake in the setting of acute illness - At the time of admission, potassium is 3.1, magnesium is 1.4 -->came back to normal limits Plan - Will continue to monitor electrolytes and replete accordingly # Chronic anemia - Hemoglobin is 11.1 on 02/2024 - Hemoglobin at the time of admission is 11.8 - Likely nutritional - Recommended to follow-up in outpatient basis for further evaluation # Hypocalcemia, secondary to vitamin D deficiency - Corrected calcium at the time of admission is 8.2 - Vitamin D levels are 4.4, supplemented with calcitriol 50,000 IU X1 - Started on calcium supplements # History of hypertension - Patient is using amlodipine 10 Mg p.o. daily and benazepril 40 Mg p.o. daily at home - Blood pressures are within normal limits since the hospital admission, will withhold antihypertensives for now - Will continue to monitor blood pressures and add medications as needed # History of osteoporosis # History of chronic back pain - Patient is using alendronate and [place] as needed for the back pain - Resumed [place] 5 every 8 hourly as needed - Resumed home tizanidine - Home med rec is ordered Hospital Maintenance: Dispo: Med/tele DVT ppx: Lovenox GI ppx: Protonix Diet: Regular IV lines: Peripheral Code status: Full code Patient plan of care was discussed with the attending physician, Dr. Matute and senior resident Dr. Eric Washington, PGY1
[2025-03-01] MEDS: tiZANidine HCL 2 MG TABLET 4 MG PO (20:14)
[2025-03-01 22:00] LABS: Vancomycin,Trough 16.4 mcg/mL (5.0-10.0)
[2025-03-02] VITALS (13 sets, daily range): BP systolic 110–156; BP diastolic 56–112; PULSE 7–106; RESP 16–98; TEMP 36.1–36.9; O2SAT 89–100
[2025-03-02] MEDS: ALBUTEROL/IPRATROPIUM (Duoneb) RT SOL 3 ML NEBU INH ×6 (03:07→23:09)
[2025-03-02] MEDS: oxyCODONE/APAP 5/325 TABLET 2 TAB PO ×4 (03:19→22:00)
[2025-03-02] MEDS: PROMETHAZINE HCL SYRUP 6.25 MG/5 ML UDC PO ×3 (05:46→17:20)
[2025-03-02] MEDS: guaiFENesin/DM 10 ML UDC PO ×3 (05:46→17:20)
[2025-03-02 07:26] LABS: Basophils # (Auto) 0.1 Thou/mm3 (0.0-0.2); Basophils % (Auto) 1 % (0-2.5); Eosinophils # (Auto) 0.3 Thou/mm3 (0.0-0.5); Eosinophils % (Auto) 3 % (0-10); Hematocrit 27.1 % (36.0-46.0); Hemoglobin 9.3 g/dL (12.0-16.0); Immature Granulocytes % (Auto) 7 % (0-0); Immature Granulocytes Auto 0.54 Thou/mm3 (0.00-0.00); Lymphocytes # (Auto) 1.9 Thou/mm3 (1.0-4.8); Lymphocytes % (Auto) 23 % (10-50); Mean Corpuscular HGB Conc 34.3 g/dl (31.0-37.0); Mean Corpuscular Volume 87 fL (80-100); Monocytes # (Auto) 0.4 Thou/mm3 (0.0-0.8); Monocytes % (Auto) 5 % (0-12); Neutrophils # (Auto) 4.9 Thou/mm3 (1.8-7.7); Neutrophils % (Auto) 61 % (37-80); Nucleated Red Blood Cell % 0 /100 WBC (0); Platelet Count 396 Thou/mm3 (140-440); RDW Standard Deviation 51.8 fL (36.4-46.3); White Blood Count 8.1 Thou/mm3 (3.6-11.0)
[2025-03-02 07:40] LABS: Alanine Aminotransferase 12 U/L (10-49); Albumin, Serum 2.9 gm/dL (3.4-4.8); Albumin/Globulin Ratio 1.2 (1.2-2.2); Alkaline Phosphatase 133 U/L (46-116); Anion Gap 6 (7-16); Aspartate Amino Transferase 23 U/L (0-34); BUN/Creatinine Ratio 22 Ratio (12-20); Bilirubin,Total 0.3 mg/dL (0.3-1.2); Blood Urea Nitrogen 11 mg/dL (9-23); Calcium 7.7 mg/dL (8.3-10.6); Calcium (Corrected) 8.6 mg/dL (8.5-10.1); Carbon Dioxide 25.2 mMol/L (20.0-31.0); Chloride 102 mMol/L (98-107); Creatinine (Component) 0.5 mg/dL (0.6-1.3); Estimated Creatinine Clearance 77.5 mL/min (>60); Globulin 2.4 gm/dL (2.3-3.5); Glucose 101 mg/dL (74-106); Osmolality,Calculated 265 (275-295); Potassium 5.1 mMol/L (3.4-5.1); Sodium 133 mMol/L (136-145); Total Protein 5.3 gm/dL (5.7-8.2); eGFR > 60 See Note
[2025-03-02] MEDS: CALCIUM CARBONATE 600 MG TABLET PO (08:55)
[2025-03-02] MEDS: CEFEPIME INJ 2 GM in SODIUM CHLORIDE 0.9% (Popper) 50 ML IV ×2 (08:56→20:25)
[2025-03-02] MEDS: amLODIPine BESYLATE 5 MG TABLET PO (08:56)
[2025-03-02] MEDS: CHOLECALCIFEROL (Vitamin D3) 1,000 IU TABLET 1000 IU PO (08:56)
[2025-03-02] MEDS: AZITHROMYCIN 250 MG TABLET 500 MG PO (08:56)
[2025-03-02] MEDS: PANTOPRAZOLE 40 MG TABLET PO (08:56)
[2025-03-02] MEDS: ENOXAPARIN SOD INJ 40 MG/0.4 ML SYRINGE SC (08:56)
[2025-03-02] MEDS: VANCOMYCIN/NS 750 MG IVPB 750 MG/150 ML BAG 120 MG IV ×2 (09:00→22:00)
[2025-03-02] MEDS: SOD POLYSTYRENE SULFON SUSP 15 GM/60 ML BTL PO (09:01)
--- NOTE | 2025-03-02 10:04 | ESPR_ITS ---
<Statement entered by Uzma Matute MD - 03/05/25 12:11> I reviewed above note and agree with findings and plans. I have also personally examined the patient with medicine team and went over assessment and plan with medical team including general internist and resident physician. Documentation for date of: 03/02/25 Subjective Subjective Interval history: Patient seen and assessed at bedside. Patient states to be feeling great. Still on 2 L nasal cannula saturating well. Patient complains of mild constipation, will be getting Kayexalate for hyperkalemia at 5.1. Exam Vital Signs Temp Pulse Resp BP Pulse Ox O2 Del Method O2 Flow Rate 97.0 F 98 22 H 130/88 H 99 Room Air 2 03/02/25 08:00 03/02/25 08:56 03/02/25 08:00 03/02/25 08:56 03/02/25 08:00 03/02/25 08:00 02/28/25 16:00 FiO2 40 02/27/25 07:35 Narrative Exam General: Awake. Pleasant elderly female. Heart: Regular rate and rhythm, no murmurs. Lungs: Clear to auscultation with no wheezing or crackles. Abdomen: Soft, nondistended, nontender, positive bowel sounds. ?No guarding or rebound tenderness. Neurologic: Alert and oriented x3, no gross neurological deficit, and patient able to move all 4 extremities. Extremities: No edema. Skin: No rash or ecchymoses. Objective Labs 03/02/25 06:50 03/02/25 06:50 Labs: Laboratory Results - last 24 hr 03/01/25 03/02/25 21:16 06:50 WBC 8.1 RBC 3.10 L Hgb 9.3 L Hct 27.1 L MCV 87 MCH 30.0 MCHC 34.3 RDW Std Deviation 51.8 H Plt Count 396 D Neut % (Auto) 61 Lymph % (Auto) 23 [place] % (Auto) 5 Eos % (Auto) 3 Baso % (Auto) 1 Neut # (Auto) 4.9 Lymph # (Auto) 1.9 [place] # (Auto) 0.4 Eos # (Auto) 0.3 Baso # (Auto) 0.1 Immature Gran # (Auto) 0.54 H Absolute Nucleated RBC 0.00 Immature Gran % 7 H Nucleated RBC % 0 Sodium 133 L Potassium 5.1 D Chloride 102 Carbon Dioxide 25.2 Anion Gap 6 L BUN 11 Creatinine 0.5 L Estim Creat Clear Calc 77.5 eGFR > 60 BUN/Creatinine Ratio 22 H Glucose 101 Calculated Osmolality 265 L Calcium 7.7 L Corrected Calcium 8.6 Total Bilirubin 0.3 AST 23 ALT 12 Alkaline Phosphatase 133 H Total Protein 5.3 L Albumin 2.9 L Globulin 2.4 Albumin/Globulin Ratio 1.2 Vancomycin Trough 16.4 H ABG Interpretation ABG results: 02/24/25 00:25 ABG pH 7.38 ABG pCO2 35 ABG pO2 87 ABG HCO3 20 ABG O2 Saturation 97 ABG Base Excess -4 L Quality Measures Quality Measures none Advance care planning discussed with:: patient Assessment & Plan Assessment Current Active Medications: Generic Name Dose Route Start Last Admin Trade Name Freq PRN Reason Stop Dose Admin Acetaminophen 650 mg 02/26/25 09:13 Acetaminophen 325 Mg Tablet PO 03/25/25 17:23 Q6H PRN Fever >100.3 Albuterol/Ipratropium 3 ml 02/24/25 03:00 03/02/25 07:49 Albuterol/Ipratropium (Duoneb) Rt Helen 3 Ml Nebu INH 03/26/25 02:59 3 ml Q4HRRT MARISOL Administration Albuterol/Ipratropium 3 ml 02/23/25 23:37 Albuterol/Ipratropium (Duoneb) Rt Helen 3 Ml Nebu INH 03/25/25 23:36 Q2HR PRN SHORTNESS OF BREATH OR WHEEZE Amlodipine Besylate 5 mg 03/01/25 09:00 03/02/25 08:56 Amlodipine Besylate 5 Mg Tablet PO 03/31/25 08:59 5 mg QDAY MARISOL Administration Azithromycin 500 mg 02/23/25 17:45 03/02/25 08:56 Azithromycin 250 Mg Tablet PO 03/02/25 17:44 500 mg QDAY MARISOL Administration Calcium Carbonate 600 mg 02/24/25 05:10 03/02/25 08:55 Calcium Carbonate 600 Mg Tablet PO 03/26/25 05:09 600 mg QDAY MARISOL Administration Docusate Sodium 100 mg 02/23/25 17:24 Docusate Sod 100 Mg Capsule PO 03/25/25 17:23 QDAY PRN CONSTIPATION Protocol Enoxaparin Sodium 40 mg 02/27/25 09:00 03/02/25 08:56 Enoxaparin Sod Inj 40 Mg/0.4 Ml Syringe SC 03/10/25 08:59 40 mg QDAY MARISOL Administration Guaifenesin/Dextromethorphan 10 ml 02/26/25 00:00 03/02/25 05:46 Guaifenesin/Dm 10 Ml Udc PO 03/28/25 00:00 10 ml Q6HR MARISOL Administration Cefepime HCl 2 gm/ Sodium 50 mls @ 100 mls/hr 02/24/25 10:45 03/02/25 08:56 Chloride IV 03/03/25 10:44 100 mls/hr Q12HR MARISOL Administration Vancomycin/Sodium Chloride 750 mg in 150 mls @ 120 mls/hr 02/27/25 11:15 03/02/25 09:00 Vancomycin/Ns 750 Mg Ivpb IV 03/06/25 11:14 120 mls/hr QDAY@1000,2200 MARISOL Administration Protocol Ondansetron HCl 4 mg 02/23/25 17:24 Ondansetron Inj 2 Mg/Ml Inj 2 Ml IV 03/25/25 17:23 Q6H PRN NAUSEA OR VOMITING Protocol Oxycodone/Acetaminophen 2 tab 02/26/25 21:30 03/02/25 09:22 Oxycodone/Apap 5/325 Tablet PO 03/03/25 11:25 2 tab Q6HR PRN Administration Pain 7-10 Pantoprazole Sodium 40 mg 02/24/25 09:00 03/02/25 08:56 Pantoprazole 40 Mg Tablet PO 03/26/25 08:59 40 mg QDAY MARISOL Administration Pharmacy Consult 1 each 02/24/25 10:45 Vancomycin Pharmacy To Dose 1 Each Each IV 03/26/25 10:44 QDAY PRN CONSULT Promethazine HCl 6.25 mg 02/26/25 00:00 03/02/25 05:46 Promethazine Hcl Syrup 6.25 Mg/5 Ml Udc PO 03/28/25 00:00 6.25 mg Q6HR MARISOL Administration Tizanidine HCl 4 mg 02/23/25 21:00 03/01/25 20:14 Tizanidine Hcl 2 Mg Tablet PO 03/25/25 20:59 4 mg HS MARISOL Administration Vitamin D 1,000 iu 02/25/25 18:37 03/02/25 08:56 Cholecalciferol (Vitamin D3) 1,000 Iu Tablet PO 03/27/25 18:36 1,000 iu QDAY [facility] Administration Plan A 79-year-old female with significant past medical history of hypertension, chronic back pain on opioids presented to the hospital with chief complaints of cough and admitted in the hospital for acute hypoxic respiratory failure secondary to right lung pneumonia. Pending insurance authorization for SNF placement. # Acute hypoxic respiratory failure, resolved # 2/2 Right lung pneumonia # Likely community-acquired pneumonia # Leukocytosis, resolved - Patient presented to the hospital with chief complaints of cough with expectoration associated with shortness of breath since 2 weeks - Denies fever, nausea, vomitings - Vitals at the time of admission are significant for SpO2 95% with 6 L oxygen - Labs are significant for WBC 19, Hb 11.8 - Chest x-ray showed patchy infiltrate in right upper lobe - Tested negative for COVID, influenza A and B - Blood cultures on 02/23/2025, blood culture came back positive for Streptococcus pneumonia and other culture is negative - Blood cultures on 02/24/2025 came back negative after 48 hours - Sputum culture and Gram stain came back negative - Cocci IgM and IgG were ordered -IgM came back negative twice - JUAN M and ANCA titres are ordered, pending Plan -Patient on azithromycin, cefepime, and vancomycin. - Will continue to wean off oxygen as able. - Chest physiotherapy and incentive spirometry - Dextromethorphan every 6 hourly - DuoNebs every 4th hourly - Pending insurance authorization for SNF placement. 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 - Will continue to monitor sodium levels and correct if needed # VERONICA, resolved # Hypokalemia, resolved # Hyponatremia, resolved # Hypomagnesemia, resolved # Chronic anemia - Hemoglobin is 11.1 on 02/2024 - Hemoglobin at the time of admission is 11.8 - Likely nutritional - Recommended to follow-up in outpatient basis for further evaluation # Hypocalcemia, secondary to vitamin D deficiency - Corrected calcium at the time of admission is 8.2 - Vitamin D levels 4.4, supplemented with calcitriol 50,000 IU X1 - On calcium supplements # History of hypertension - Patient is using amlodipine 5 Mg p.o. daily and benazepril 40 Mg p.o. daily at home - Blood pressures are within normal limits since the hospital admission, will withhold antihypertensives for now - Will continue to monitor blood pressures and add medications as needed # History of osteoporosis # History of chronic back pain - Patient is using alendronate and [place] as needed for the back pain - Resumed [place] 5 every 8 hourly as needed - Resumed home tizanidine - Home med rec is ordered Hospital Maintenance: Dispo: Med/tele DVT ppx: Lovenox GI ppx: Protonix Diet: Regular IV lines: Peripheral Code status: Full code Plan of care discussed with attending physician Dr. Giovani Reyes, PGY3
[2025-03-02] MEDS: tiZANidine HCL 2 MG TABLET 4 MG PO (20:25)
[2025-03-03] VITALS (14 sets, daily range): BP systolic 128–160; BP diastolic 61–86; PULSE 70–108; RESP 16–29; TEMP 36.1–36.7; O2SAT 93–100
[2025-03-03] MEDS: PROMETHAZINE HCL SYRUP 6.25 MG/5 ML UDC PO ×5 (00:10→23:55)
[2025-03-03] MEDS: guaiFENesin/DM 10 ML UDC PO ×5 (00:10→23:55)
[2025-03-03] MEDS: ALBUTEROL/IPRATROPIUM (Duoneb) RT SOL 3 ML NEBU INH ×6 (02:04→22:13)
[2025-03-03] MEDS: oxyCODONE/APAP 5/325 TABLET 2 TAB PO (06:05)
--- NOTE | 2025-03-03 07:23 | PC.NURSE ---
called Pharmacy regarding patient's 0600 dose of promethazine, none available on the floor, per Crystal from pharmacy will bring up medication.
[2025-03-03] MEDS: amLODIPine BESYLATE 5 MG TABLET PO (08:22)
[2025-03-03] MEDS: ENOXAPARIN SOD INJ 40 MG/0.4 ML SYRINGE SC (08:22)
[2025-03-03] MEDS: PANTOPRAZOLE 40 MG TABLET PO (08:22)
[2025-03-03] MEDS: CALCIUM CARBONATE 600 MG TABLET PO (08:22)
[2025-03-03] MEDS: CHOLECALCIFEROL (Vitamin D3) 1,000 IU TABLET 1000 IU PO (08:22)
[2025-03-03] MEDS: CEFEPIME INJ 2 GM in SODIUM CHLORIDE 0.9% (Popper) 50 ML IV (08:22)
[2025-03-03 10:34] LABS: Vancomycin,Trough 17.5 mcg/mL (5.0-10.0)
[2025-03-03] MEDS: VANCOMYCIN/NS 750 MG IVPB 750 MG/150 ML BAG 120 MG IV ×2 (11:00→21:32)
--- NOTE | 2025-03-03 11:47 | PC.SS ---
SS follow up note; SS contacted Yennifer from [facility] to check status on authorization and she informed SS that at the time auth was still pending, however will follow up again.
[2025-03-03] MEDS: HYDROcodone/APAP 5/325 TABLET 1 TAB PO ×2 (13:39→20:19)
--- NOTE | 2025-03-03 14:09 | ESPR_ITS ---
<Statement entered by Uzma Matute MD - 03/07/25 08:12> I reviewed above note and agree with findings and plans. I have also personally examined the patient with medicine team and went over assessment and plan with medical team including internet developer and resident physician. Documentation for date of: 03/03/25 Subjective Subjective Interval history: Patient seen and assessed at bedside. Patient is on nasal cannula saturating well. Will order PT and have patient walk around. Pending insurance authorization for shelter facility placement. Will continue on IV antibiotics to complete course. Exam Vital Signs Temp Pulse Resp BP Pulse Ox O2 Del Method O2 Flow Rate 98.1 F 89 17 142/78 H 100 Nasal Cannula 2 03/03/25 12:00 03/03/25 13:59 03/03/25 13:59 03/03/25 12:00 03/03/25 13:59 03/03/25 12:00 03/03/25 13:59 FiO2 40 02/27/25 07:35 Narrative Exam General: Awake. Pleasant elderly female. Heart: Regular rate and rhythm, no murmurs. Lungs: Clear to auscultation with no wheezing or crackles. Abdomen: Soft, nondistended, nontender, positive bowel sounds. ?No guarding or rebound tenderness. Neurologic: Alert and oriented x3, no gross neurological deficit, and patient able to move all 4 extremities. Extremities: No edema. Skin: No rash or ecchymoses. Objective Labs 03/02/25 06:50 03/02/25 06:50 Labs: Laboratory Results - last 24 hr 03/03/25 09:45 Vancomycin Trough 17.5 H ABG Interpretation ABG results: 02/24/25 00:25 ABG pH 7.38 ABG pCO2 35 ABG pO2 87 ABG HCO3 20 ABG O2 Saturation 97 ABG Base Excess -4 L Quality Measures Quality Measures none Advance care planning discussed with:: patient Assessment & Plan Assessment Current Active Medications: Generic Name Dose Route Start Last Admin Trade Name Freq PRN Reason Stop Dose Admin Acetaminophen 650 mg 02/26/25 09:13 Acetaminophen 325 Mg Tablet PO 03/25/25 17:23 Q6H PRN Fever >100.3 Albuterol/Ipratropium 3 ml 02/24/25 03:00 03/03/25 13:56 Albuterol/Ipratropium (Duoneb) Rt Helen 3 Ml Nebu INH 03/26/25 02:59 3 ml Q4HRRT MARISOL Administration Albuterol/Ipratropium 3 ml 02/23/25 23:37 Albuterol/Ipratropium (Duoneb) Rt Helen 3 Ml Nebu INH 03/25/25 23:36 Q2HR PRN SHORTNESS OF BREATH OR WHEEZE Amlodipine Besylate 5 mg 03/01/25 09:00 03/03/25 08:22 Amlodipine Besylate 5 Mg Tablet PO 03/31/25 08:59 5 mg QDAY MARISOL Administration Calcium Carbonate 600 mg 02/24/25 05:10 03/03/25 08:22 Calcium Carbonate 600 Mg Tablet PO 03/26/25 05:09 600 mg QDAY MARISOL Administration Docusate Sodium 100 mg 02/23/25 17:24 Docusate Sod 100 Mg Capsule PO 03/25/25 17:23 QDAY PRN CONSTIPATION Protocol Enoxaparin Sodium 40 mg 02/27/25 09:00 03/03/25 08:22 Enoxaparin Sod Inj 40 Mg/0.4 Ml Syringe SC 03/10/25 08:59 40 mg QDAY MARISOL Administration Guaifenesin/Dextromethorphan 10 ml 02/26/25 00:00 03/03/25 11:53 Guaifenesin/Dm 10 Ml Udc PO 03/28/25 00:00 10 ml Q6HR MARISOL Administration Vancomycin/Sodium Chloride 750 mg in 150 mls @ 120 mls/hr 02/27/25 11:15 03/03/25 12:15 Vancomycin/Ns 750 Mg Ivpb IV 03/06/25 11:14 Infused QDAY@1000,2200 MARISOL Infusion Protocol Ondansetron HCl 4 mg 02/23/25 17:24 Ondansetron Inj 2 Mg/Ml Inj 2 Ml IV 03/25/25 17:23 Q6H PRN NAUSEA OR VOMITING Protocol Pantoprazole Sodium 40 mg 02/24/25 09:00 03/03/25 08:22 Pantoprazole 40 Mg Tablet PO 03/26/25 08:59 40 mg QDAY MARISOL Administration Pharmacy Consult 1 each 02/24/25 10:45 Vancomycin Pharmacy To Dose 1 Each Each IV 03/26/25 10:44 QDAY PRN CONSULT Promethazine HCl 6.25 mg 02/26/25 00:00 03/03/25 11:53 Promethazine Hcl Syrup 6.25 Mg/5 Ml Udc PO 03/28/25 00:00 6.25 mg Q6HR MARISOL Administration Tizanidine HCl 4 mg 02/23/25 21:00 03/02/25 20:25 Tizanidine Hcl 2 Mg Tablet PO 03/25/25 20:59 4 mg HS MARISOL Administration Vitamin D 1,000 iu 02/25/25 18:37 03/03/25 08:22 Cholecalciferol (Vitamin D3) 1,000 Iu Tablet PO 03/27/25 18:36 1,000 iu QDAY MARISOL Administration Plan A 79-year-old female with significant past medical history of hypertension, chronic back pain on opioids presented to the hospital with chief complaints of cough and admitted in the hospital for acute hypoxic respiratory failure secondary to right lung pneumonia. Pending insurance authorization for SNF placement. # Acute hypoxic respiratory failure- improving # 2/2 Right lung pneumonia # Likely community-acquired pneumonia # Leukocytosis, resolved - Patient presented to the hospital with chief complaints of cough with expectoration associated with shortness of breath since 2 weeks - Denies fever, nausea, vomitings - Vitals at the time of admission are significant for SpO2 95% with 6 L oxygen - Labs are significant for WBC 19, Hb 11.8 - Chest x-ray showed patchy infiltrate in right upper lobe - Tested negative for COVID, influenza A and B - Blood cultures on 02/23/2025, blood culture came back positive for Streptococcus pneumonia and other culture is negative - Blood cultures on 02/24/2025 came back negative after 48 hours - Sputum culture and Gram stain came back negative - Cocci IgM and IgG were ordered -IgM came back negative twice - JUAN M and ANCA titres are ordered, pending Plan -Patient on azithromycin, cefepime, and vancomycin. - Will continue to wean off oxygen as able. - Chest physiotherapy and incentive spirometry - Dextromethorphan every 6 hourly - DuoNebs every 4th hourly - Pending insurance authorization for SNF placement. 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 - Will continue to monitor sodium levels and correct if needed # VERONICA, resolved # Hypokalemia, resolved # Hyponatremia, resolved # Hypomagnesemia, resolved # Chronic anemia - Hemoglobin is 11.1 on 02/2024 - Hemoglobin at the time of admission is 11.8 - Likely nutritional - Recommended to follow-up in outpatient basis for further evaluation # Hypocalcemia, secondary to vitamin D deficiency - Corrected calcium at the time of admission is 8.2 - Vitamin D levels 4.4, supplemented with calcitriol 50,000 IU X1 - On calcium supplements # History of hypertension - Patient is using amlodipine 5 Mg p.o. daily and benazepril 40 Mg p.o. daily at home - Blood pressures are within normal limits since the hospital admission, will withhold antihypertensives for now - Will continue to monitor blood pressures and add medications as needed # History of osteoporosis # History of chronic back pain - Patient is using alendronate and [place] as needed for the back pain - Resumed [place] 5 every 8 hourly as needed - Resumed home tizanidine - Home med rec is ordered Hospital Maintenance: Dispo: Med/tele DVT ppx: Lovenox GI ppx: Protonix Diet: Regular IV lines: Peripheral Code status: Full code Plan of care discussed with attending physician Dr. Giovani Reyes, PGY3
--- NOTE | 2025-03-03 14:34 | PC.SS ---
SS follow up note; SS attempted to contact [employer] [phone]. SS left voicemail and also faxed all clinicals again as well, fax: [phone].
[2025-03-03] MEDS: tiZANidine HCL 2 MG TABLET 4 MG PO (20:18)
[2025-03-04] VITALS (13 sets, daily range): BP systolic 131–150; BP diastolic 61–78; PULSE 78–102; RESP 15–22; TEMP 36.3–36.6; O2SAT 93–100
[2025-03-04] MEDS: ALBUTEROL/IPRATROPIUM (Duoneb) RT SOL 3 ML NEBU INH ×4 (03:30→14:19)
[2025-03-04] MEDS: HYDROcodone/APAP 5/325 TABLET 1 TAB PO ×2 (04:35→12:27)
[2025-03-04] MEDS: guaiFENesin/DM 10 ML UDC PO ×3 (05:02→17:23)
[2025-03-04] MEDS: PROMETHAZINE HCL SYRUP 6.25 MG/5 ML UDC PO ×3 (05:03→17:23)
[2025-03-04 06:21] LABS: ANCA Screen NEGATIVE (NEGATIVE); Myeloperoxidase Ab <1.0 AI (<1.0); Proteinase-3 Ab <1.0 AI (<1.0)
[2025-03-04 07:54] LABS: Basophils # (Auto) 0.1 Thou/mm3 (0.0-0.2); Basophils % (Auto) 1 % (0-2.5); Eosinophils # (Auto) 0.2 Thou/mm3 (0.0-0.5); Eosinophils % (Auto) 3 % (0-10); Hematocrit 27.2 % (36.0-46.0); Hemoglobin 9.1 g/dL (12.0-16.0); Immature Granulocytes % (Auto) 3 % (0-0); Immature Granulocytes Auto 0.21 Thou/mm3 (0.00-0.00); Lymphocytes # (Auto) 1.4 Thou/mm3 (1.0-4.8); Lymphocytes % (Auto) 21 % (10-50); Mean Corpuscular HGB Conc 33.5 g/dl (31.0-37.0); Mean Corpuscular Hemoglobin 29.6 pg (25.0-35.0); Mean Corpuscular Volume 89 fL (80-100); Monocytes # (Auto) 0.5 Thou/mm3 (0.0-0.8); Monocytes % (Auto) 7 % (0-12); Neutrophils # (Auto) 4.4 Thou/mm3 (1.8-7.7); Neutrophils % (Auto) 65 % (37-80); Nucleated Red Blood Cell % 0 /100 WBC (0); Platelet Count 493 Thou/mm3 (140-440); RDW Standard Deviation 52.5 fL (36.4-46.3); Red Blood Count 3.07 Miln/mm3 (4.00-5.20); White Blood Count 6.7 Thou/mm3 (3.6-11.0)
[2025-03-04 08:23] LABS: Alanine Aminotransferase 15 U/L (10-49); Albumin, Serum 3.1 gm/dL (3.4-4.8); Albumin/Globulin Ratio 1.1 (1.2-2.2); Alkaline Phosphatase 119 U/L (46-116); Anion Gap 7 (7-16); Aspartate Amino Transferase 28 U/L (0-34); BUN/Creatinine Ratio 15 Ratio (12-20); Bilirubin,Total 0.3 mg/dL (0.3-1.2); Blood Urea Nitrogen 6 mg/dL (9-23); Calcium 8.2 mg/dL (8.3-10.6); Calcium (Corrected) 8.9 mg/dL (8.5-10.1); Carbon Dioxide 23.9 mMol/L (20.0-31.0); Chloride 99 mMol/L (98-107); Creatinine (Component) 0.4 mg/dL (0.6-1.3); Estimated Creatinine Clearance 96.9 mL/min (>60); Globulin 2.7 gm/dL (2.3-3.5); Glucose 102 mg/dL (74-106); Osmolality,Calculated 258 (275-295); Potassium 4.4 mMol/L (3.4-5.1); Sodium 130 mMol/L (136-145); Total Protein 5.8 gm/dL (5.7-8.2); eGFR > 60 See Note
[2025-03-04] MEDS: ENOXAPARIN SOD INJ 40 MG/0.4 ML SYRINGE SC (10:03)
[2025-03-04] MEDS: amLODIPine BESYLATE 5 MG TABLET PO (10:03)
[2025-03-04] MEDS: VANCOMYCIN/NS 750 MG IVPB 750 MG/150 ML BAG 120 MG IV (10:03)
[2025-03-04] MEDS: CHOLECALCIFEROL (Vitamin D3) 1,000 IU TABLET 1000 IU PO (10:04)
[2025-03-04] MEDS: CALCIUM CARBONATE 600 MG TABLET PO (10:04)
[2025-03-04] MEDS: PANTOPRAZOLE 40 MG TABLET PO (10:04)
--- NOTE | 2025-03-04 13:47 | PC.SS ---
Addendum entered by Vanesa Farooq 03/04/25 15:29: [facility] SS updated Yennifer from [facility], as well as patient and patient's nurse, Elizabeth. Original Note: SS follow up note; SS was contacted by patient's insurance in regards to auth approval. SS contacted Yennifer from [facility] and she informed SS that auth was faxed and obtained. SS contacted [facility] transportation and they informed SS that the account was not active. SS attempted X2 times. SS will need to contact [facility] services for transportation.
--- NOTE | 2025-03-04 15:31 | ESDS_ITS ---
<Statement entered by Uzma Matute MD - 03/07/25 08:18> I reviewed above note and agree with findings and plans. I have also personally examined the patient with medicine team and went over assessment and plan with medical team including design engineering intern and resident physician. Planned Discharge Date 03/04/25 DS: Providers Provider Date of admission: 02/23/25 17:22 Primary care physician: Eddie Chauhan MD Admitting Provider: Moriah Prince DO Attending Provider on Admission: Uzma Matute MD Consults: 02/23/25 17:37 Referral Physical Therapy Routine Comment: Physician Instructions: Attending Provider on DC: Jose Luis Washington MD Discharging Provider: Jose Luis Washington MD DS: Diagnosis Problem List Completed Was Problem List Reviewed/Reconciled?: Yes Hospital Course Hospital Course Hospital course: 79-year-old female with significant past medical history of ex chronic smoker, hypertension, chronic back pain on opioids presented to the hospital with chief complaints of cough since 2 weeks and admitted in the hospital for acute hypoxic respiratory failure secondary to bilateral pneumonia, predominantly right-sided and Acute kidney injury Hospital course: Vitals at the time of admission are significant for SpO2 95% with 6 L oxygen through nasal cannula. Labs at the time of admission are significant for creati nine to 1.6 that improved to 0.8 with fluid resuscitation. Chest x-ray showed bilateral infiltrate traits with predominant consolidation in the right upper lobe. Chest CT showed bilateral pneumonia, severe and diffuse in the right lung. EKG showed sinus rhythm with occasional PAC. Echo showed EF 55 to 60% with grade 1 diastolic dysfunction, mild to moderate MR and TR. Tested negative for influenza A and B, COVID-19, cocci, beta 1, 3D glucan. Blood cultures, sputum and throat culture came back negative. Patient was treated with cefepime and vancomycin, high flow oxygen, chest physiotherapy and nebulizations during the hospital stay. Patient responded well to the treatment during the hospital and slowly weaned off from high flow to room air. Patient is discharged to the SNF with following medications and recommendations -Follow-up with PCP within 1 week of discharge. If you do not have appointment, please follow-up with the [facility] with Dr. Washington. Call [phone] to make an appointment. - Recommended to continue Augmentin 875-125mg twice daily till 03/09/2025 and Azithromycin 500mg once daily till 03/09/2025 - Rescue albuterol as needed - Recommended to stop Benazepril - Continue rest of the home medications - Return to ED if symptoms persist or return # Acute hypoxic respiratory failure- improving # 2/2 Right lung pneumonia # Likely community-acquired pneumonia # Leukocytosis, resolved # Mild hyponatremia # VERONICA, resolved # Hypokalemia, resolved # Hyponatremia, resolved # Hypomagnesemia, resolved # Chronic anemia # Hypocalcemia, secondary to vitamin D deficiency # History of hypertension # History of osteoporosis # History of chronic back pain Patient plan of care was discussed with the attending physician, Dr. Giovani Washington, PGY1 Time Spent with Patient Time attestation: Total time spent providing and/or coordinating discharge services: Time spent: Greater than 30 minutes Exam Vital Signs Temp Pulse Resp BP Pulse Ox O2 Del Method O2 Flow Rate 97.6 F 94 18 131/61 H 100 Room Air 2 03/04/25 11:42 03/04/25 14:20 03/04/25 14:20 03/04/25 11:42 03/04/25 14:20 03/04/25 11:42 03/04/25 14:20 FiO2 40 03/03/25 16:00 Narrative Exam General: Awake. HEENT: Normocephalic, atraumatic, mucous membranes moist. Heart: Regular rate and rhythm, no murmurs. Lungs: Clear to auscultation with no wheezing or crackles. Abdomen: Soft, nondistended, nontender, positive bowel sounds. ?No guarding or rebound tenderness. Neurologic: Alert and oriented x3, no gross neurological deficit, and patient able to move all 4 extremities. Extremities: No edema. Skin: No rash or ecchymoses. Discharge Plan Plan Patient Disposition: Xfer Skilled Nsg Fac (SNF) Patient condition on transfer: Stable Care Plan Goals: -Follow-up with PCP within 1 week of discharge. If you do not have appointment, please follow-up with the [facility] with Dr. Washington. Call [phone] to make an appointment. - Recommended to continue Augmentin 875-125mg twice daily till 03/09/2025 and Azithromycin 500mg once daily till 03/09/2025 - Rescue albuterol as needed - Recommended to stop Benazepril - Continue rest of the home medications - Return to ED if symptoms persist or return Prescriptions/Referrals Prescriptions/Med Rec: New amoxicillin-pot clavulanate 875-125 mg tablet 1 tab PO BID 10 Days Qty: 20 0RF azithromycin 500 mg tablet 500 mg PO QDAY 10 Days Qty: 10 0RF albuterol sulfate 90 mcg/actuation HFA aerosol inhaler 1 inh inhalation Q6H PRN (Reason: shortness of breath or wheezing) Qty: 8.5 0RF Continued lorazepam 0.5 MG tablet 0.5 mg PO TID PRN (Reason: anxiety) Qty: 0 omeprazole 20 MG capsule,delayed release(DR/EC) 20 mg PO QDAY Qty: 0 Rx Instructions: take one capsule by mouth every morning 30 minutes before meals. amlodipine [Norvasc] 10 MG tablet 10 mg PO QDAY Qty: 0 tizanidine [Zanaflex] 4 MG tablet 4 mg PO BID Qty: 0 alendronate 70 mg Tablet 70 mg PO QWEEK promethazine-codeine 6.25-10 mg/5 mL syrup 5 ml PO QHSPRN PRN (Reason: cough) Qty: 118 0RF guaifenesin 200 mg tablet 200 mg PO QID PRN (Reason: congestion) Qty: 20 0RF ondansetron 4 mg tablet,disintegrating 4 mg PO Q8H PRN (Reason: nausea and vomiting) Qty: 14 0RF hydrocodone-acetaminophen 5-325 mg tablet 1 tab PO Q8H MDD 3 tabs PRN (Reason: pain) Qty: 20 0RF duloxetine 20 mg capsule,delayed release(DR/EC) 20 mg PO DAILY Patient Comments: TAKE ONE CAPSULE BY MOUTH EVERY DAY FOR NERVE PAIN Discontinued benazepril [Lotensin] 40 MG tablet 40 mg PO QDAY Qty: 0 hydrocodone-acetaminophen [[place]] 7.5-325 mg Tablet 1 tab PO [id number] PRN (Reason: Pain) dexamethasone 6 mg tablet 6 mg PO QDAY Qty: 7 0RF Referrals: Eddie Chauhan MD [Primary Care Provider] - Patient/Caregiver Discharge Instructions Education Materials: What Is Pneumonia?, Treating Pneumonia, ED Cough Chronic Uncertain Cause Adult Print Language: Syriac Stand Alone Forms: Imelda Award Info., Patient Portal Info Letter Discharge Order Discharge Orders: Discharge (Routine); Ordered 02/28/25 Ordered By: Jose Luis Washington Quality Discharge Quality Measures VTE prophylaxis
== END 2025-03-04 18:25 | disposition skilled nursing facility (03) | DRG 193 ==
LOC: SERX 15:11 → SERHOLD 17:38 → S3SX 19:51
PROVIDERS: Registered Nurse General Practice; Student in an Organized Health Care Education/Training Program; Admitting Provider Internal Medicine; Emergency Provider Family Medicine; PCP Family Medicine; Visit Provider Internal Medicine
DX: J18.9 Pneumonia, unspecified organism (principal); J96.01 Acute respiratory failure with hypoxia; E87.1 Hypo-osmolality and hyponatremia; N17.9 Acute kidney failure, unspecified; F11.20 Opioid dependence, uncomplicated; E87.6 Hypokalemia; E83.42 Hypomagnesemia; D64.9 Anemia, unspecified; I10 Essential (primary) hypertension; G89.29 Other chronic pain; M54.9 Dorsalgia, unspecified; M81.0 Age-related osteoporosis without current pathological fracture; K21.9 Gastro-esophageal reflux disease without esophagitis; B95.3 Streptococcus pneumoniae as the cause of diseases classified elsewhere; E55.9 Vitamin D deficiency, unspecified; I95.9 Hypotension, unspecified; E87.5 Hyperkalemia; Z96.643 Presence of artificial hip joint, bilateral; Z87.891 Personal history of nicotine dependence; Z79.83 Long term (current) use of bisphosphonates; Z79.899 Other long term (current) drug therapy
CPT/HCPCS: 36415; 36600; 71045; 71250; 80048; 80053; 80061; 80202; 80307; 81001; 82306; 82436; 82570; 82803; 83605; 83615; 83735; 83880; 84100; 84133; 84145; 84300; 84439; 84443; 84484; 85025; 85610; 85730; 86021; 86036; 86331; 86635; 87040; 87070; 87077; 87081; 87186; 87205; 87400; 87449; 87811; 93005; 93225; 93306; 94640; 94667; 97161; 99285; A9270; J0692; J0696; J1650; J3370; J3475; J3490; J7030; J7040; J7120

== ENCOUNTER → 2025-06-03 | Outpatient (CLI) | payer MEDICARE, MEDICAID, SELFPAY ==
--- NOTE | 2025-06-03 14:54 | XR_ITS ---
Examination: Lumbar spine, 5 views Technique: Lumbar spine AP, lateral, coned lateral lower lumbar spine, bilateral obliques 5 views Exam date and time: June 03, 2025 1504 hours Comparison September 15, 2022 INDICATIONS: Low back pain beginning 2001. Lines: Severe osteopenia Bilateral hip arthroplasties with satisfactory alignment Lumbar dextroscoliosis 20 degrees Advanced diffuse facet arthropathy Advanced diffuse lumbar degenerative disc disease No lumbar fracture IMPRESSION: Advanced diffuse lumbar degenerative disc disease with spinal stenosis
== END | disposition home or self-care (01) ==
PROVIDERS: PCP Student in an Organized Health Care Education/Training Program; Referring Provider Student in an Organized Health Care Education/Training Program; Visit Provider Student in an Organized Health Care Education/Training Program
DX: M51.360 Other intervertebral disc degeneration, lumbar region with discogenic back pain only (principal); M48.061 Spinal stenosis, lumbar region without neurogenic claudication
CPT/HCPCS: 72110

== ENCOUNTER 2025-08-08 07:00 | Emergency (ER) | payer OTHER, MEDICAID, SELFPAY ==
[2025-08-08] VITALS (13 sets, daily range): BP systolic 63–195; BP diastolic 40–99; PULSE 49–86; RESP 14–27; TEMP 36.6–36.8; O2SAT 91–100; BMI 24.3
--- NOTE | 2025-08-08 07:08 | PD.EDADULT ---
ED General RME/HPI General Chief complaint: Extremity Injury, Lower Stated complaint: FALL Time Seen by Provider: 08/08/25 07:05 Arrival date/time: 08/08/25 07:00 RME / HPI RME / HPI narrative: 80-year-old female here for evaluation of left elbow injury. States that she had gotten up, was not quite awake yet, has to use a walker to walk, got off balance and ended up falling onto her left side, injuring her left elbow in the process. Here for further evaluation. No head injury or loss of consciousness. Patient has past medical history of osteoporosis, hypertension, anxiety. Is on amlodipine 10 mg, benazepril 40 mg, duloxetine 20 mg. omeprazole daily, has not yet taken her blood pressure medications this morning. Notes that she has an appointment with her PCP on the seventh of this month. No other acute symptoms at this time. Related Data Home Medications ?Medication ?Instructions ?Recorded ?Confirmed lorazepam 0.5 mg tablet 0.5 mg PO TID PRN anxiety #0 tabs 06/21/16 02/23/25 omeprazole 20 mg capsule,delayed 20 mg PO QDAY ##0 06/21/16 02/23/25 release amlodipine 10 mg tablet (Norvasc) 10 mg PO QDAY #0 tabs 09/14/16 02/23/25 tizanidine 4 mg tablet (Zanaflex) 4 mg PO BID Muscle spasms #0 tabs 09/14/16 02/23/25 alendronate 70 mg tablet 70 mg PO QWEEK 04/30/20 02/26/25 duloxetine 20 mg capsule,delayed 20 mg PO DAILY 02/23/25 02/23/25 release Previous Rx's ?Medication ?Instructions ?Recorded guaifenesin 200 mg tablet 200 mg PO QID PRN congestion #20 02/21/22 tabs promethazine 6.25 mg-codeine 10 5 ml PO QHSPRN PRN cough #118 mL 02/21/22 mg/5 mL syrup hydrocodone 5 mg-acetaminophen 325 1 tab PO Q8H PRN pain #20 tabs 09/03/23 mg tablet ondansetron 4 mg disintegrating 4 mg PO Q8H PRN nausea and 11/11/23 tablet vomiting #14 tabs albuterol sulfate 90 mcg/actuation 1 inh inhalation Q6H PRN shortness 02/28/25 aerosol inhaler of breath or wheezing #8.5 grams hydrocodone 5 mg-acetaminophen 325 1 tab PO Q6H PRN pain #12 tabs 08/08/25 mg tablet naloxone 4 mg/actuation nasal 4 mg intranasal Q3M PRN opioid 08/08/25 spray (Narcan) overdose #2 ea Allergies Allergy/AdvReac Type Severity Reaction Status Date / Time diphenhydramine HCl AdvReac Mild RESTLESSNES Verified 08/25/23 11:25 S Review of Systems Review of Systems Systems Reviewed: All systems reviewed, normal except as documented Past Medical History Past Medical History CARDIAC: Positive Edema and Hypertension RESPIRATORY: Positive Asthma GASTROINTESTINAL: Positive Gastrointestinal Disorders and Gastroesophageal Reflux Disease REPRODUCTIVE: Positive Previous Pregnancies MUSCULOSKELETAL: Positive Musculoskeletal Disorders, Arthritis, Osteoporosis, Fractures and Degenerative Joint Disease ENT: Positive Glaucoma PSYCHO/SOCIAL: Positive Depression and Anxiety OTHER HISTORY: Positive Chicken Pox, Measles, Mumps and Cervical Cancer Family History FAMILY HISTORY: Positive Family Gastrointestinal Problems and Family Surgery Surgical History SURGICAL: Positive Eye Surgery, Joint Replacement, Open Reduction Internal Fixation and Hysterectomy Social History SMOKING STATUS: Never smoker SECOND HAND EXPOSURE: No Past Medical History Comments PMH COMMENT: Past medical history significant for hypertension, osteoporosis, GERD, anxiety, chronic low back pain. ED Exam Narrative Physical exam: Constitutional: Awake, alert, nontoxic, elderly, uncomfortable. HEENT: Normocephalic, atraumatic, extraocular movements intact. Neck: Supple CV: Regular rate and rhythm, no murmurs/rubs/gallops Lungs: Clear to auscultation BL, no respiratory distress. Extremities: Deformity noted to left elbow with likely dislocation. Distal perfusion and sensation are intact. Neuro: AAOx3, no acute neuro deficit noted. Skin: Warm, dry, intact Course Course Course Narrative: 7:12 AM: 80-year-old female arriving by EMS for evaluation of left elbow injury with likely dislocation noted on exam. Initial imaging ordered, plan would be for procedural sedation for reduction, monitoring, and likely discharge after ambulation trial and p.o. challenge after. 0905h: Procedural sedation done for left elbow fracture dislocation reduction. Postreduction films ordered and pending. 1008h: Called into the room by the RN. Reports HR dropped to low 40s, blood pressure 63/40, and diaphoretic. STAT EKG performed that shows normal sinus rhythm, rate 64, no acute ischemic changes, no STEMI. Started on IV fluids. 1021h: Blood pressure normalized, now 141/65, HR 62. 1140h: Patient remains vitally stable. No additional symptoms. Believe okay for discharge home at this time to follow-up with orthopedics outpatient for further management of her fracture. Post splinting exam is benign with patient able to dorsiflex her wrist and distal sensation/perfusion intact. Quality Measures none Orders Category Date Time Status Conscious Sedation [RT Stand By for Procedure] NOW Care 08/08/25 07:08 Active Insert IV NOW Care 08/08/25 07:08 Active Splint / Immobilizer STAT Care 08/08/25 12:54 Active XR elbow LT 2V Stat Exams 08/08/25 07:07 Completed XR elbow comp LT min 3V Stat Exams 08/08/25 09:15 Completed CBC Stat Lab 08/08/25 07:38 Completed CMP [Comprehensive Metabolic Panel] Stat Lab 08/08/25 07:38 Completed Urinalysis, C/S if Indicated Stat Lab 08/08/25 07:08 Ordered Acetaminophen Ivpb [Ofirmev Inj] Med 08/08/25 07:58 Discontinued 1,000 mg in 100 ml IV NOW Ketamine Inj Med 08/08/25 08:30 Discontinued 30 mg IVP X1 ONE Lisinopril [Prinivil] Med 08/08/25 07:05 Discontinued 40 mg PO X1 ONE Morphine* Inj Med 08/08/25 11:45 Discontinued 4 mg IVP NOW ONE Ondansetron Inj [Zofran Inj] Med 08/08/25 10:13 Discontinued 4 mg IVP X1 ONE Propofol Inj [Diprivan Inj] Med 08/08/25 08:30 Discontinued 30 mg IV X1 ONE Sodium Chloride 0.9% 1000 ml [Ns] 1,000 ml Med 08/08/25 10:13 Discontinued IV 999 mls/hr amLODIPine BESYLATE [Norvasc] Med 08/08/25 07:05 Discontinued 10 mg PO X1 ONE fentaNYL INJ [Sublimaze Inj] Med 08/08/25 08:30 Discontinued 50 mcg IVP X1 ONE Vital Signs Vital signs: Vital Signs Temperature 98.2 F 08/08/25 07:05 Pulse Rate 73 08/08/25 07:05 Respiratory Rate 17 08/08/25 07:05 Blood Pressure 195/80 H 08/08/25 07:05 Pulse Oximetry (%) 99 08/08/25 07:05 Oxygen Delivery Method Nasal Cannula 08/08/25 07:05 Oxygen Flow Rate 2 08/08/25 07:05 PROCEDURES: Orthopedic Fracture Reduction Left elbow: Time Out Performed: Yes Side: left Fracture Reduction Location: other (Elbow) Analgesia: procedural sedation Technique: direct manipulation and traction/counter-traction Post Reduction X-rays Demonstrate: acceptable reduction Post-reduction neuro exam: intact Post-reduction vascular exam: intact Splint Applied: Yes Patient Tolerated Procedure: well Procedural Sedation Indication: fracture/dislocation reduction Presedation Evaluation: Se physical exam note ASA: 2 Preparation: media monitor applied, pulse oximeter, capnometry used, supplemental O2 applied, reversal agents at bedside, suction/airway equipment at bedside and IV secured Fentanyl: IV Fentanyl dose (mcg): 25 Ketamine: IV Ketamine dose (mg): 30 IV Propofol dose (mg): 30 Patient Tolerated Procedure: well Complications: none Critical Care Time Critical Care Time Critical Care Time: Yes Total Critical Care Time (min.): 38 Attestation: The high probability of a clinically significant, sudden or life threatening deterioration of the [] system(s) required my full and direct attention, intervention and personal management. The aggregate critical care time was [38] minutes. This time is in addition to time spent performing reported procedures but includes the following: [x] Data Review and interpretation [x] Patient assessment and monitoring of vital signs [x] Documentation [x] Medication orders and management Discharge Plan Plan Patient Disposition: HOME (Self Care) Patient condition on transfer: Stable Prescriptions/Referrals Prescriptions/Med Rec: New naloxone [Narcan] 4 mg/actuation spray,non-aerosol 4 mg intranasal Q3M PRN (Reason: opioid overdose) Qty: 2 0RF Rx Instructions: spray 1 dose into ONE nostril; alternate nostrils w each dose until help arrives hydrocodone-acetaminophen 5-325 mg tablet 1 tab PO Q6H MDD 4 tabs PRN (Reason: pain) Qty: 12 0RF No Action lorazepam 0.5 MG tablet 0.5 mg PO TID PRN (Reason: anxiety) Qty: 0 omeprazole 20 MG capsule,delayed release(DR/EC) 20 mg PO QDAY Qty: 0 Rx Instructions: take one capsule by mouth every morning 30 minutes before meals. amlodipine [Norvasc] 10 MG tablet 10 mg PO QDAY Qty: 0 tizanidine [Zanaflex] 4 MG tablet 4 mg PO BID Qty: 0 alendronate 70 mg Tablet 70 mg PO QWEEK promethazine-codeine 6.25-10 mg/5 mL syrup 5 ml PO QHSPRN PRN (Reason: cough) Qty: 118 0RF guaifenesin 200 mg tablet 200 mg PO QID PRN (Reason: congestion) Qty: 20 0RF ondansetron 4 mg tablet,disintegrating 4 mg PO Q8H PRN (Reason: nausea and vomiting) Qty: 14 0RF hydrocodone-acetaminophen 5-325 mg tablet 1 tab PO Q8H MDD 3 tabs PRN (Reason: pain) Qty: 20 0RF duloxetine 20 mg capsule,delayed release(DR/EC) 20 mg PO DAILY Patient Comments: TAKE ONE CAPSULE BY MOUTH EVERY DAY FOR NERVE PAIN albuterol sulfate 90 mcg/actuation HFA aerosol inhaler 1 inh inhalation Q6H PRN (Reason: shortness of breath or wheezing) Qty: 8.5 0RF Referrals: Alfred James PA-C [Primary Care Provider] - In 1 week Referral Note: If difficulty seeing the orthopedic doctor Quinten Alexandre MD [Referring Provider] - In 1 week Referral Note: Orthopedics Clinical Impression: Elbow fracture, left Problem List Clinical Impression: Elbow fracture, left, Dislocated elbow, Fall Patient/Caregiver Discharge Instructions Education Materials: Exercises to Prevent Falls, Procedural Sedation, ED Elbow Dislocation, ED Fracture, Upper Extremity, ED Splints and Casts Additional Instructions: Some general health principles that can help you are the [employer] principles: Nutrition (eat a plant-based diet, avoiding meats in general, avoiding highly processed foods) Exercise (Daily exercise/walks as tolerated) Water (Drink adequate fresh water to maintain hydration, concentrating on water rather than on soda, coffee, tea, juice, etc for hydration) [place] (Spend time - 15-20 minutes or so with skin exposed in the kiln door builder and late evening sun for Vitamin D health benefits) [place] (Avoid alcohol, illicit drugs, caffeinated beverages, smoking, etc) Air (Deep breathing exercises in the early mornings in fresh air) Rest (Adequate rest at night, going to bed a few hours before midnight and avoiding all screens/television/loud music in the time right before going to bed, also avoiding heavy meals just prior to going to bed) Trust in God (Spend time daily in Bible study and prayer - health benefits in contemplation of God's true character) Additional resources that can benefit: www.[employer], look under resources and seminars. Print Language: [place]i Stand Alone Forms: [employer] Award Info., Patient Portal Info Letter MDM Clinical Information Provided by: patient Medical Records reviewed [facility] Meds/Rx considered, not ordered None Labs/Rad/Tests considered, not ordered None Chronic Illness/Social Conditions which may negatively complicate care or outcome(s)-explain: None or not applicable EKG Interpretation EKG #1: EKG Interpretation: EKG @ 10:09 AM. Normal sinus rhythm, rate 64, no acute ischemic changes, no STEMI. Labs Labs: interpreted by me Imaging Imaging interpretation: interpreted by me Imaging Interpretation(s): Ordering Physician: Bessy Aguilera MD Date of Service: 08/08/25 Procedure(s): XR elbow LT 2V Accession Number(s): [id number] cc: Alfred James PA-C; Mike Kumari MD; Bessy Aguilera MD~ Examination: Left elbow 2 views Technique: AP lateral left elbow 2 views Date and time: August 08, 2025 0759 hrs. Indications: Patient fell this morning with injury to the elbow, elbow pain. Findings: Acute severely comminuted fractures of the proximal ulna extending to the ulnar notch 3 views are nonstandard There also appears to be elbow dislocation with the radial head displaced dorsally relative to the articulating condyle and possible fracture off the radial head Impression: Elbow fractures with dislocation, suggest CT scan elbow without contrast follow-up Dictated By: Mike Kumari MD Signed By: <Electronically signed by Mike Kumari MD in [place]> 08/08/25 0820 Ordering Physician: Bessy Aguilera MD Date of Service: 08/08/25 Procedure(s): XR elbow comp LT min 3V Accession Number(s): [id number] cc: Alfred James PA-C; Mike Kumari MD; Bessy Aguilera MD~ Examination: Left elbow 3 views Technique: Elbow AP, oblique, lateral 3 views Exam date and time: August 08, 2025, 0954 hours, comparison August 08, 2025 0759 hours INDICATIONS: Elbow fractures with dislocation August 08, 2025 0805 hours, post reduction films. FINDINGS: Successful reduction elbow dislocation. Severely comminuted fractures proximal ulna extending to the ulnar notch been noted On the lateral view 6 mm separation of the main fracture fragments There is a fracture off the radial head with displaced bone fragment which is not clearly visualized on this study IMPRESSION: Successful reduction elbow dislocation Severely comminuted fractures proximal ulna extending to the ulnar notch with 6 mm separation of the main fracture fragments Suspicious for fracture fragment off the radial head, consider CT scan elbow without contrast follow-up Dictated By: Mike Kumari MD Signed By: <Electronically signed by Mike Kumari MD in [place]> 08/08/25 1001 Medication Administration(s) Medication Administration History Discontinued Medications Amlodipine Besylate (Amlodipine Besylate 5 Mg Tablet) 10 mg PO X1 ONE Stop: 08/08/25 07:06 Last Admin: 08/08/25 07:38 Dose: 10 mg Documented By: LOLY Fentanyl Citrate (Fentanyl Cit Inj 50 Mcg/Ml Amp 2ml) 50 mcg IVP X1 ONE Stop: 08/08/25 08:31 Last Admin: 08/08/25 09:06 Dose: 25 mcg Documented By: LOLY Comments: PER DR. AGUILERA AT BEDSIDE, PT WAS ONLY GIVEN 25MCG Acetaminophen (Ofirmev Inj) 1,000 mg in 100 mls @ 250 mls/hr IV NOW ONE Stop: 08/08/25 08:21 Last Infusion: 08/08/25 08:36 Dose: Infused Documented By: Admin: 08/08/25 08:12 Dose: 250 mls/hr Documented By: LOLY Sodium Chloride (Ns) 1,000 mls @ 999 mls/hr IV .Q1H1M ONE Stop: 08/08/25 11:13 Last Infusion: 08/08/25 11:30 Dose: Infused Documented By: Admin: 08/08/25 10:25 Dose: 999 mls/hr Documented By: LOLY Ketamine HCl (Ketamine 50 Mg/Ml Vial 10 Ml) 30 mg IVP X1 ONE Stop: 08/08/25 08:31 Last Admin: 08/08/25 09:08 Dose: 30 mg Documented By: LOLY Lisinopril (Lisinopril 20 Mg Tablet) 40 mg PO X1 ONE Stop: 08/08/25 07:06 Last Admin: 08/08/25 07:38 Dose: 40 mg Documented By: LOLY Morphine Sulfate (Morphine Sulf Inj 4 Mg/Ml Vial) 4 mg IVP NOW ONE Stop: 08/08/25 11:46 Last Admin: 08/08/25 12:41 Dose: 4 mg Documented By: LOLY Ondansetron HCl (Ondansetron Inj 2 Mg/Ml Inj 2 Ml) 4 mg IVP X1 ONE; Protocol Stop: 08/08/25 10:14 Last Admin: 08/08/25 10:23 Dose: 4 mg Documented By: LOLY Propofol (Propofol Inj 10 Mg/Ml Vial 20 Ml) 30 mg IV X1 ONE Stop: 08/08/25 08:31 Last Admin: 08/08/25 09:07 Dose: 30 mg Documented By: LOLY See above Diagnosis Diagnoses ruled out and/or further discussions: Left comminuted elbow fracture Left elbow dislocation, resolved
[2025-08-08 07:43] LABS: Basophils # (Auto) 0.0 Thou/mm3 (0.0-0.2); Basophils % (Auto) 1 % (0-2.5); Eosinophils # (Auto) 0.1 Thou/mm3 (0.0-0.5); Eosinophils % (Auto) 2 % (0-10); Hematocrit 36.1 % (36.0-46.0); Hemoglobin 12.1 g/dL (12.0-16.0); Immature Granulocytes Auto 0.02 Thou/mm3 (0.00-0.00); Lymphocytes # (Auto) 1.8 Thou/mm3 (1.0-4.8); Lymphocytes % (Auto) 27 % (10-50); Mean Corpuscular HGB Conc 33.5 g/dl (31.0-37.0); Mean Corpuscular Hemoglobin 27.9 pg (25.0-35.0); Mean Corpuscular Volume 83 fL (80-100); Monocytes # (Auto) 0.5 Thou/mm3 (0.0-0.8); Monocytes % (Auto) 7 % (0-12); Neutrophils # (Auto) 4.3 Thou/mm3 (1.8-7.7); Neutrophils % (Auto) 63 % (37-80); Nucleated Red Blood Cell # 0.00 Thou/mm3 (0.00-0.00); Nucleated Red Blood Cell % 0 /100 WBC (0); Platelet Count 210 Thou/mm3 (140-440); RDW Standard Deviation 44.9 fL (36.4-46.3); Red Blood Count 4.33 Miln/mm3 (4.00-5.20); White Blood Count 6.7 Thou/mm3 (3.6-11.0)
[2025-08-08 08:02] LABS: Alanine Aminotransferase 14 U/L (10-49); Albumin, Serum 4.5 gm/dL (3.4-4.8); Albumin/Globulin Ratio 2.3 (1.2-2.2); Alkaline Phosphatase 56 U/L (46-116); Anion Gap 7 (7-16); Aspartate Amino Transferase 14 U/L (0-34); BUN/Creatinine Ratio 19 Ratio (12-20); Bilirubin,Total 0.3 mg/dL (0.3-1.2); Blood Urea Nitrogen 13 mg/dL (9-23); Calcium 9.0 mg/dL (8.3-10.6); Calcium (Corrected) 9.0 mg/dL (8.5-10.1); Carbon Dioxide 27.1 mMol/L (20.0-31.0); Chloride 101 mMol/L (98-107); Creatinine (Component) 0.7 mg/dL (0.6-1.3); Estimated Creatinine Clearance 56.7 mL/min (>60); Globulin 2.0 gm/dL (2.3-3.5); Glucose 108 mg/dL (74-106); Osmolality,Calculated 271 (275-295); Potassium 4.3 mMol/L (3.4-5.1); Sodium 135 mMol/L (136-145); Total Protein 6.5 gm/dL (5.7-8.2); eGFR > 60 See Note
[2025-08-08] MEDS: ACETAMINOPHEN IVPB 1,000 MG/100 ML VIAL 250 MG IV (08:12)
[2025-08-08] MEDS: fentaNYL CIT INJ 50 mCg/ML AMP 2ML IVP (09:06)
[2025-08-08] MEDS: PROPOFOL INJ 10 MG/ML VIAL 20 ML 30 MG IV (09:07)
[2025-08-08] MEDS: KETAMINE 50 MG/ML VIAL 10 ML 30 MG IVP (09:08)
--- NOTE | 2025-08-08 09:15 | XR_ITS ---
Examination: Left elbow 3 views Technique: Elbow AP, oblique, lateral 3 views Exam date and time: August 08, 2025, 0954 hours, comparison August 08, 2025 0759 hours INDICATIONS: Elbow fractures with dislocation August 08, 2025 0805 hours, post reduction films. FINDINGS: Successful reduction elbow dislocation. Severely comminuted fractures proximal ulna extending to the ulnar notch been noted On the lateral view 6 mm separation of the main fracture fragments There is a fracture off the radial head with displaced bone fragment which is not clearly visualized on this study IMPRESSION: Successful reduction elbow dislocation Severely comminuted fractures proximal ulna extending to the ulnar notch with 6 mm separation of the main fracture fragments Suspicious for fracture fragment off the radial head, consider CT scan elbow without contrast follow-up
[2025-08-08] MEDS: ONDANSETRON INJ 2 MG/ML INJ 2 ML 4 MG IVP (10:23)
[2025-08-08] MEDS: SODIUM CHLORIDE 0.9% 1000 ML 1,000 ML 999 ML IV (10:25)
[2025-08-08] MEDS: MORPHINE SULF INJ 4 MG/ML VIAL IVP (12:41)
--- NOTE | 2025-08-08 12:59 | PC.NURSE ---
PT PASS PO CHALLENGE, PER [facility] TO DC THIS PT.
== END 2025-08-08 13:10 | disposition home or self-care (01) ==
PROVIDERS: Emergency Provider Family Medicine; PCP Student in an Organized Health Care Education/Training Program
DX: S52.002A Unspecified fracture of upper end of left ulna, initial encounter for closed fracture (principal); W19.XXXA Unspecified fall, initial encounter; M81.0 Age-related osteoporosis without current pathological fracture; I10 Essential (primary) hypertension; F41.9 Anxiety disorder, unspecified; Z79.899 Other long term (current) drug therapy
CPT/HCPCS: 24675; 36415; 73070; 73080; 80053; 81001; 85025; 96361; 96365; 96375; 99284; J0131; J2270; J2405; J2704; J3010; J7030; A9270

== ENCOUNTER 2025-08-18 17:56 | Emergency (ER) | payer OTHER, MEDICAID, SELFPAY ==
[2025-08-18 17:57] VITALS: BMI 25.6
[2025-08-18 18:27] VITALS: BP 132/85; PULSE 72; RESP 18; TEMP 36.7; O2SAT 95
--- NOTE | 2025-08-18 18:28 | PD.EDUPEX ---
Upper Extremity Injury RME/HPI General Chief Complaint: Extremity Injury, Upper Stated Complaint: SWELLING FINGERS/HAND S/P ELBOW DISLOCATION 08/08 Time Seen by Provider: 08/18/25 18:03 Source: patient Arrival date/time: 08/18/25 17:56 RME / HPI RME / HPI narrative: 80-year-old female presents to the ER complaining of increased swelling, ecchymosis, irritation of her splint and intermittent burning of her hand which has been progressively worsening since being seen in the ER 10 days prior for a left elbow closed reduction, patient was unable to follow-up with orthopedic doctor due to her insurance however she has rearranged to schedule an orthopedic follow-up this week. Denies weakness, numbness, pallor, increased pain. Related Data Home Medications ?Medication ?Instructions ?Recorded ?Confirmed lorazepam 0.5 mg tablet 0.5 mg PO TID PRN anxiety #0 tabs 06/21/16 02/23/25 omeprazole 20 mg capsule,delayed 20 mg PO QDAY ##0 06/21/16 02/23/25 release amlodipine 10 mg tablet (Norvasc) 10 mg PO QDAY #0 tabs 09/14/16 02/23/25 tizanidine 4 mg tablet (Zanaflex) 4 mg PO BID Muscle spasms #0 tabs 09/14/16 02/23/25 alendronate 70 mg tablet 70 mg PO QWEEK 04/30/20 02/26/25 duloxetine 20 mg capsule,delayed 20 mg PO DAILY 02/23/25 02/23/25 release Previous Rx's ?Medication ?Instructions ?Recorded guaifenesin 200 mg tablet 200 mg PO QID PRN congestion #20 02/21/22 tabs promethazine 6.25 mg-codeine 10 5 ml PO QHSPRN PRN cough #118 mL 02/21/22 mg/5 mL syrup hydrocodone 5 mg-acetaminophen 325 1 tab PO Q8H PRN pain #20 tabs 09/03/23 mg tablet ondansetron 4 mg disintegrating 4 mg PO Q8H PRN nausea and 11/11/23 tablet vomiting #14 tabs albuterol sulfate 90 mcg/actuation 1 inh inhalation Q6H PRN shortness 02/28/25 aerosol inhaler of breath or wheezing #8.5 grams hydrocodone 5 mg-acetaminophen 325 1 tab PO Q6H PRN pain #12 tabs 08/08/25 mg tablet naloxone 4 mg/actuation nasal 4 mg intranasal Q3M PRN opioid 08/08/25 spray (Narcan) overdose #2 ea acetaminophen 300 mg-codeine 30 mg 1 tab PO Q6H PRN pain #14 tabs 08/18/25 tablet Allergies Allergy/AdvReac Type Severity Reaction Status Date / Time diphenhydramine HCl AdvReac Severe RESTLESSNES Verified 08/18/25 17:59 S ED Exam Narrative Physical exam: Constitutional: Vital Signs Reviewed. Well appearing. No acute distress. Not toxic appearing. Head: Normocephalic, atraumatic. Eyes: Conjunctiva clear. ENT: Mucous membranes moist. Neck: Trachea midline. Normal range of motion. No nuchal rigidity. Respiratory: Normal effort. No respiratory distress or accessory muscle use. Neuro: Alert and oriented. Speech normal. No focal gross motor or sensory deficits observed. Skin: Warm, dry, normal color. Psych: Pleasant. Normal affect. Cooperative. Extremity: Left upper extremity with edema, ecchymosis, long-arm splint in place with sling. Compartments soft, patient able to wiggle her fingers and cap refill < 2 seconds. No erythema, pallor, poikylothermia. Course Course Course Narrative: Splint was rewrapped and reposition for patient comfort. Patient no longer experiencing intermittent paresthesias or irritation of her skin. No skin breakdown present. Radial pulse 2+ regular rate and rhythm. Quality Measures none Orders Category Date Time Status Splint / Immobilizer STAT Care 08/18/25 18:33 Active XR elbow LT 2V Stat Exams 08/18/25 18:31 Completed HYDROcodone/APAP 10325 [[place] 10/325] Med 08/18/25 18:37 Discontinued 1 tab PO X1 ONE Ondansetron Odt [Zofran Odt] Med 08/18/25 18:59 Discontinued 4 mg PO X1 ONE Reevaluation(s) Reevaluation #1: At the time of reassessment, the patient remains alert and oriented ?3 with GCS 15. Vitals are normal, pain is controlled, and the patient is tolerating oral intake without nausea or vomiting. The patient is agreeable to discharge and verbalizes understanding of the diagnosis, studies, treatment plan, medications (including side effects/precautions), and strict ER return precautions as discussed in the ED. All concerns were addressed, and the patient is comfortable with the plan. Left upper extremity syl soft and distally neurovascular intact with long-arm splint in place and sling in place. Vital Signs Vital signs: Vital Signs Temperature 98.1 F 08/18/25 18:27 Pulse Rate 72 08/18/25 18:27 Respiratory Rate 18 08/18/25 18:27 Blood Pressure 132/85 H 08/18/25 18:27 Pulse Oximetry (%) 95 08/18/25 18:27 Oxygen Delivery Method Room Air 08/18/25 18:27 Extremity Injury MDM Narrative MDM Narrative:: 80 yo F presents to ER for increased swelling, ecchymosis, and irritation of skin for her splint which was applied after having a closed elbow reduction in the ER 10 days ago. Pt missed her orthopedic f/u due to insurance issues but is going to f/u this week and has it scheduled. Denies weakness, poikylothermia, pallor, increased pain, fever, redness, falling again. 08/08 post reduction L elbow read: Severely comminuted fracture of proximal ulna and radial head s/p reduction LUE remains DNVI with soft compartments No infectious e/o No new traumatic e/o Although pt has symptoms which are concerning for possible early development of compartment syndrome clinical evaluation does not support this diagnosis, pt is comfortable with soft compartments and remains DNVI for her LUE, ED dispo pending ED course however plan for repeat XR to exclude new f/x or recurrent displacement, reposition existing splint for comfort, expedited OP f/u with PCP and ortho Patient data External records reviewed:: [facility] previous records Clinical information provided by:: patient Social determinants that could affect healthcare access:: none Patient has the following chronic illnesses:: as noted How is presenting disease/condition affected by chronic disease/condition?: uneffected by Evaluation data The following diagnostics were reviewed and interpreted by me:: radiology exam(s) Lab and/or radiology exams considered but not ordered:: Labs and radiology considered, but not ordered as they were not clinically indicated at this time. Interpretation Summary: = Medications / Prescriptions Medications or Prescriptions considered but not ordered:: I considered prescription management (both outpatient prescriptions AND drug treatment in the ER) and decided that this was necessary and was prescribed as charted. Medication administrations:: Medication Administration History Discontinued Medications Hydrocodone Bitart/Acetaminophen (Hydrocodone/Apap 10/325 Tab) 1 tab PO X1 ONE Stop: 08/18/25 18:38 Last Admin: 08/18/25 18:51 Dose: 1 tab Documented By: BRANDON Ondansetron HCl (Ondansetron Odt 4 Mg Tabrap) 4 mg PO X1 ONE; Protocol Stop: 08/18/25 19:00 Last Admin: 08/18/25 19:47 Dose: Not Given Documented By: BRANDON Non-Admin Reason: Patient Refused As noted Consultations Consultation(s) initiated? (list below): No Consultation #1 (Physician, Specialty, Details): Case and plan was discussed with and agreed upon with Dr. Street as fracture fragment is now 11 mm when it was previously 6 mm, he states patient is safe for discharge with close orthopedic follow-up, no additional reduction necessary at this time. Time: 20:54 Diagnosis Upper Extremity Injury Differential Diagnosis: other Most likely diagnosis given after review of the tests above:: Left elbow fracture Admission Indicated Admission indicated?: not indicated Explain why admission is indicated or not indicated:: Escalation of care including admission/observation considered but I decided to discharge because based on the overall clinical presentation, and after consideration of the patient's course in the emergency department and plan for outpatient management, I believe that neither further observation nor inpatient care is required at this time. Admission Request Was there a request for admission?: No Disposition Plan Disposition Plan: Discharge Discharge Attestation Discharge Attestation: The patient and all family members were given an opportunity to ask questions and understood the discharge instructions. Discharge instructions specifically effects, indications for sooner follow up or return to the emergency department, and the expected course of current diagnosis. Patient condition: Stable Discharge Plan Prescriptions/Referrals Prescriptions/Med Rec: New acetaminophen-codeine 300-30 mg tablet 1 tab PO Q6H PRN (Reason: pain) Qty: 14 0RF No Action lorazepam 0.5 MG tablet 0.5 mg PO TID PRN (Reason: anxiety) Qty: 0 omeprazole 20 MG capsule,delayed release(DR/EC) 20 mg PO QDAY Qty: 0 Rx Instructions: take one capsule by mouth every morning 30 minutes before meals. amlodipine [Norvasc] 10 MG tablet 10 mg PO QDAY Qty: 0 tizanidine [Zanaflex] 4 MG tablet 4 mg PO BID Qty: 0 alendronate 70 mg Tablet 70 mg PO QWEEK promethazine-codeine 6.25-10 mg/5 mL syrup 5 ml PO QHSPRN PRN (Reason: cough) Qty: 118 0RF guaifenesin 200 mg tablet 200 mg PO QID PRN (Reason: congestion) Qty: 20 0RF ondansetron 4 mg tablet,disintegrating 4 mg PO Q8H PRN (Reason: nausea and vomiting) Qty: 14 0RF hydrocodone-acetaminophen 5-325 mg tablet 1 tab PO Q8H MDD 3 tabs PRN (Reason: pain) Qty: 20 0RF duloxetine 20 mg capsule,delayed release(DR/EC) 20 mg PO DAILY Patient Comments: TAKE ONE CAPSULE BY MOUTH EVERY DAY FOR NERVE PAIN albuterol sulfate 90 mcg/actuation HFA aerosol inhaler 1 inh inhalation Q6H PRN (Reason: shortness of breath or wheezing) Qty: 8.5 0RF naloxone [Narcan] 4 mg/actuation spray,non-aerosol 4 mg intranasal Q3M PRN (Reason: opioid overdose) Qty: 2 0RF Rx Instructions: spray 1 dose into ONE nostril; alternate nostrils w each dose until help arrives hydrocodone-acetaminophen 5-325 mg tablet 1 tab PO Q6H MDD 4 tabs PRN (Reason: pain) Qty: 12 0RF Referrals: No Primary/Family,Physician [Primary Care Provider] - In 1 week Problem List Clinical Impression: Elbow fracture, left Patient/Caregiver Discharge Instructions Education Materials: ED Elbow Fracture Additional Instructions: Follow up with your primary medical doctor and an orthopedic doctor within 24 hours. Return to the Emergency Room immediately for any new, worsening, continuing symptoms or any concerns at all. Return to the Emergency Room within 24 hours if you are unable to follow up with your primary medical doctor and an orthopedic doctor within 24 hours. Print Language: Polish PA/[employer]STRUCTOR Supervising Physician PA/[employer] INSTRUCTOR Supervising Physician: Dr. Ravi Chase
--- NOTE | 2025-08-18 18:31 | XR_ITS ---
Examination: Left elbow 3 views Technique: Elbow AP, oblique, lateral 3 views Exam date and time: August 18, 2025, 1854 hours, comparison August 08, 2025 FINDINGS: Again noted severely comminuted fractures of the olecranon, additional separation of the main fracture fragments on this study, measuring up to 11 mm compared to 6 mm on the prior study The fractures extend to the ulnar notch The fractures involve the coronoid process Fractures radial head with defect in the radial head surface Humerus appears intact IMPRESSION: Again noted is severely comminuted fractures of the olecranon, additional separation of the main fracture fragments on this study The fractures extend to the ulnar notch Fractures of the radial head
--- NOTE | 2025-08-18 19:48 | PC.NURSE ---
PT CAME IN WITH SPLINT IN PLACE. PROVIDER ORDERED FOR THE SAME SPLINT TO REMAIN ON PT AND FOR CURRENT SPLINT TO BE RE-WRAPPED. SPLINT RE-WRAPPED AND A NEW SLING WAS PROVIDED. PT VERBALIZED THAT SPLINT FELT WELL, NOT TOO TIGHT, DOES NOT C/O PAIN OR DISCOMFORT AT THIS TIME.
--- NOTE | 2025-08-18 21:33 | PC.NURSE ---
SIGNIFICANT DECREASE IN SWELLING OF THE L ARM NOTED AT DISCHARGE. PT DENIES ANY PAIN/ DISCOMFORT AT THIS TIME.
== END 2025-08-18 21:35 | disposition home or self-care (01) ==
PROVIDERS: Emergency Provider Emergency Medicine
DX: S42.442A Displaced fracture (avulsion) of medial epicondyle of left humerus, initial encounter for closed fracture (principal); S42.462A Displaced fracture of medial condyle of left humerus, initial encounter for closed fracture; S52.122D Displaced fracture of head of left radius, subsequent encounter for closed fracture with routine healing; W19.XXXA Unspecified fall, initial encounter
CPT/HCPCS: 73070; 99284; A9270